=== PATIENT | female | born 1965 | race Asian ===

== ENCOUNTER 2018-04-14 11:24 | Emergency (ER) | payer OTHER ==
[2018-04-14 11:50] VITALS: BP 140/78
--- NOTE | 2018-04-14 12:31 | UC ---
Charles Medina Stephanie, scribed for ParulFreddy olivo MD on 04/14/18 at 1139 . Cardiac HPI - HPI Summary HPI Summary: In Room Note: The pt is a 53 y/o F presenting to with c/o CP that began on 04/13/18. The CP is located in the mid-chest. The pt states her entire body is tight. She denies N/V and diaphoresis. Denies recent illness. Denies past MN. Per daughter, this is a similar pain she has had in the past from anxiety. Note: Visit hx: Previous visit for CP in 2015, 2014 and 2010. Nurse Note: pts daughter states the family heard some upsetting news yesterday and shortly there after, pt started with chest pain in her mid chest. She states the pain feels like "tightness" and at times, "SOB". Pt was tearful at triage when asked about the upsetting news and declined disclosing the information. Pts does state she has had this same pain in the past and has been dx'sed with anxiety. - History of Current Complaint Stated Complaint: CHEST PAIN Time Seen by Provider: 04/14/18 11:34 Hx Obtained From: Patient Hx Last Menstrual Period: 10/01/16 Onset/Duration: Gradual Onset, Still Present Timing: Constant Current Severity: Mild Chest Pain Location: Mid Sternal Character: Tightness Aggravating Factor(s): Other - recent stress Alleviating Factor(s): Nothing Associated Signs & Symptoms: Positive: Chest Pain - Allergy/Home Medications Allergies/Adverse Reactions: Allergies Allergy/AdvReac Type Severity Reaction Status Date / Time No Known Allergies Allergy Verified 04/14/18 11:50 PMH/Surg Hx/FS Hx/Imm Hx Psychological History: Anxiety - Surgical History Surgical History: Yes Surgery Procedure, Year, and Place: 2010 LEFT EAR SURGERY, [facility] [place]. 2004 BILATERAL TUBAL LIGATION, [facility] [place] - Family History Known Family History: Negative: Cardiac Disease - Social History Occupation: Employed Full-time Lives: With Family Alcohol Use: Rare Substance Use Type: None Smoking Status (MU): Never Smoked Tobacco Have You Smoked in the Last Year: No Review of Systems Constitutional: Negative Skin: Negative Eyes: Negative ENT: Negative Respiratory: Negative Cardiovascular: Chest Pain Gastrointestinal: Negative Genitourinary: Negative Motor: Negative Neurovascular: Negative Musculoskeletal: Negative Neurological: Negative Psychological: Negative All Other Systems Reviewed And Are Negative: Yes Physical Exam - Summary Physical Exam Summary: Appearance: The patient is well-appearing, is in no pain distress, and is well- nourished. Eyes: Conjunctiva are clear. ENT: The hearing is grossly normal, the pharynx is normal, and the TMs are normal. There is no muffled or hoarse voice. Neck: The neck is supple and there is no lymphadenopathy. Respiratory: The chest is nontender. The lungs are clear, there are normal breath sounds, and there is no respiratory distress. Cardiovascular: Heart is regular rate and rhythm. There is no murmur. MILD DISCOMFORT WITH PALPATION TO UPPER CHEST WITH C/O MILD TIGHTNESS. Abdomen: The abdomen is soft and nontender. There is no organomegaly. Bowel sounds: present Musculoskeletal: Strength is intact. The patient moves all extremities. Neurological: The patient is alert. Psychological: The patient displays age appropriate behavior Skin: Negative for rashes. Triage Information Reviewed: Yes Vital Signs: Initial Vital Signs Temp 98.2 F 04/14/18 11:42 Pulse 69 04/14/18 11:42 Resp 15 04/14/18 11:42 BP 140/78 04/14/18 11:42 Pulse Ox 97 04/14/18 11:42 Vital Signs Reviewed: Yes Diagnostics - EKG Cardiac Rate: NL - 70 bpm @ 11:34 Cardiac Rhythm: Sinus: Normal - No acute ischemia compared to 08/30/16 and . No significant change. - Differential Diagnoses - Chest Pain Differential Diagnosis/HQI/PQRI: Acute MN, Pulmonary Embolism, Other: - anxiety - Clinical Impression Provider Diagnoses: chest pain probable anxiety; incomplete examination Discharge - Sign-Out/Discharge Documenting (check all that apply): Discharge/Admit/Transfer - Discharge Plan Condition: Stable Disposition: HOME Prescriptions: ALPRAZolam TAB* [Xanax TAB*] 0.25 mg PO TID PRN #5 tab MDD 0.75mg/day PRN Reason: Pain Patient Education Materials: Chest Pain (ED), Anxiety (ED) Referrals: Tai Johnson MD [Primary Care Provider] - Additional Instructions: PLEASE SEEK CARE AT THE EMERGENCY DEPARTMENT IF SYMPTOMS WORSEN OR IF NEW SYMPTOMS DEVELOP. FOLLOW UP WITH YOUR PRIMARY CARE PHYSICIAN. Your blood pressure reading today was 140/78, indicating HYPERTENSION. Follow- up with your primary care provider within 4 weeks for blood pressure readings and further evaluation. As we discussed, this is an incomplete exam but based on urine exam your chest pain is not a heart attack. Ears to be anxiety and I have given you a medication for that. Call your doctor and see her doctor tomorrow. Go directly to the emergency department for repeat chest pain, shortness of breath or other new chest pain symptoms. - Billing Disposition and Condition Condition: STABLE Disposition: Home The documentation as recorded by the Charles rosa Stephanie accurately reflects the service I personally performed and the decisions made by me, Freddy Gonzales MD.
== END 2018-04-14 12:42 | disposition home or self-care (01) ==
LOC: UCEAST 11:24
DX: R07.89 Other chest pain (principal); F41.9 Anxiety disorder, unspecified
CPT/HCPCS: 93005; 99212; G0463

== ENCOUNTER 2019-02-07 22:03 | Inpatient (IN) | payer OTHER ==
--- NOTE | 2019-02-07 22:17 | ED ---
Cardiac Resuscitation - HPI Summary HPI Summary: A 54 y/o female was brought in by [facility] ambulance, who have been performing CPR for 20 minutes. Per EMS, the patient was given four epi and one bicarb en route. Per family, the patient was at work when she had a sudden collapse at 21: 30. They report that the patient has a Hx of heart problems and sees Dr. Eaton, but the patient has had no prior NV or cardiac catheterization. The patients family reports that the patient was fine earlier today, but claim that she may have been stressed out. Patient is a level 5 caveat due to her unresponsiveness. - History of Current Complaint Chief Complaint: EDCardiacArrest Stated Complaint: CARDIAC ARREST PER EMS Hx Obtained From: Family/Salesperson [employer], EMS Hx From Patient Unobtainable Due To: Other - Pt was in cardiac arrest Onset/Duration: Minutes/Hours: - reportedly at 21:30 Arrest Witnessed: Yes - Allergies/Home Medications Allergies/Adverse Reactions: Allergies Allergy/AdvReac Type Severity Reaction Status Date / Time No Known Allergies Allergy Verified 07/14/18 18:05 Home Medications: Home Medications NK [No Home Medications Reported] 02/08/19 [History Confirmed 02/08/19] - Past Medical History Past Medical History: Other: - Per family, the patient has a Hx of cardiac problems but has no prior NV or cardiac catheterizaion - Family History Family History: Unobtainable Due to Extremis - Social History Social History: Unobtainable Due to Extremis - Review of Systems Review of Systems: Unobtainable Due to Extremis Physical Examination - Summary Physical Exam Summary: General: This is a well-developed, well- nourished woman lying on the stretcher. She is unresponsive and apneic, being ventilated by BVM with CPR machine giving compressions. HEENT:Conjunctiva are normal without pallor. Pharynx is clear without exudate or swelling. Dentition is unremarkable. There is no sign of head trauma. Neck: Supple, no adenopathy noted. Lungs: Lungs are clear to auscultation. The patient is apneic and being bagged. Coronary: Initially no pulses were felt, fairly soon after arrival and intubation the patient developed pulses; bedside screening US showed cardiac activity. Abdomen: The abdomen appears normal and is nondistended. There is no hepatosplenomegaly, nor any masses. Genitourinary: Deferred Back: deferred Extremities: There is no sign of any trauma to the extremities. Neurologic: The patient is unresponsive. The extremities are flaccid. Pupils are 3 mm and minimally reactive. Deep tendon reflexes are 2+ and symmetric. Psychiatric:unable to assess. Level 5 caveat due to unresponsiveness. - Physical Examination Triage Information Reviewed: Yes Diagnostics - Laboratory Result Diagrams: 02/08/19 05:45 02/08/19 05:45 Lab Statement: Any lab studies that have been ordered have been reviewed, and results considered in the medical decision making process. - Radiology CXR Radiology Interpretation Completed By: ED Physician Summary of Radiographic Findings: Pulmonary edema and good ET tube position. Pending official imaging report. - EKG 22:14 Cardiac Rate: Other Rate - Atrial fibrillation at 131 bpm EKG Rhythm: Atrial Fibrillation Summary of EKG Findings: Atrial fibrillation at 131 bpm with repol abnrm, prob ischemia, anterolateral lds. 22:39 Cardiac Rate: NL - 99 bpm EKG Rhythm: Sinus Rhythm Summary of EKG Findings: NSR at [address] elevation AvR, anteriolateral ST depression. Re-Evaluation - Re-Evaluation First Eval Re-Evaluation Time: 22:51 Cardiac Resus. Course/Dx - Course Course Of Treatment: A 54 y/o female was brought in by [facility] ambulance, who have been performing CPR for 20 minutes. Per EMS, the patient was given four epi and one bicarb en route. Per family, the patient was at work when she had a sudden collapse at 21:30. They report that the patient has a Hx of heart problems and sees Dr. Eaton, but the patient has had no prior NV or cardiac catheterization. The patients family reports that the patient was fine earlier today, but claim that she may have been stressed out. In the ED course the patient was given Aspirin NG tube, Lorazepam and Propofol IV. Bloodwork chemistries and toxicology obtained. ABG pH 7.04, HCO3 9.4, lactic acid 10.8. CXR showed Pulmonary edema and good ET tube position. The first EKG showed Atrial fibrillation at 131 bpm with repol abnrm, prob ischemia, anterolateral lds, and the second EKG showed NSR at [address] elevation AvR, anteriolateral ST depression. Both EKGs were discussed with Dr. Davis. Case discussed with Dr. Charlton, hospitalist, who accepted the patient for admission. - Diagnoses Provider Diagnoses: Cardiac arrest, Cardiac ischemia During the Visit The Following Alert/Code Occurred: ABC Alert - Provider Notifications Discussed Care Of Patient With: Praveen Davis Time Discussed With Above Provider: 22:28 Instructed by Provider To: Other - Discussed EKG findings. It was felt that as the patient does not have a ST elevation NV on her postarrest cardiogram she would not benefit from immediate catheterization. She will be admitted and treated with aggressive supportive care. - Critical Care Time Critical Care Time: 30-74 min Discharge - Sign-Out/Discharge Documenting (check all that apply): Patient Departure - admit Patient Received Moderate/Deep Sedation with Procedure: No - Discharge Plan Condition: Critical Disposition: ADMITTED TO [facility] - Billing Disposition and Condition Condition: CRITICAL Disposition: Admitted to [facility] - Attestation Statements Document Initiated by Scribe: Yes Documenting Scribe: Asad Casillas Provider For Whom Scribe is Documenting (Include Credential): Jose Maynard MD Scribe Attestation: IAsad, scribed for Jose Maynard MD on 02/08/19 at 0639. Scribe Documentation Reviewed: Yes Provider Attestation: The documentation as recorded by the Asad rosa accurately reflects the service I personally performed and the decisions made by Jose borrero MD Status of Scribe Document: Viewed Consult Consult: At 22:[address] Davis concerning the patient's second EKG. At 22:[address] Charlton, hospitalist, who accepted the patient for admission.
[2019-02-07 22:36] LABS: Hematocrit 26 % (33-41); Hemoglobin 8.2 g/dL (12.0-16.0); Mean Corpuscular HGB Conc 31 g/dL (31-36); Mean Corpuscular Hemoglobin 22 pg (27-31); Mean Corpuscular Volume 69 fL (80-97); Mean Platelet Volume 8.8 fL (7.4-10.4); Platelet Count 143 10^3/uL (150-450); Red Blood Count 3.78 10^6 /uL (3.70-4.87); Red Cell Distribution Width 17 % (10.5-15); White Blood Count 6.2 10^3/uL (3.5-10.8)
[2019-02-07 22:48] LABS: ALT 120 U/L (7-52); AST 166 U/L (13-39); Albumin 2.5 g/dL (3.2-5.2); Albumin/Globulin Ratio 1.4 (1-3); Alkaline Phosphatase 48 U/L (34-104); Anion Gap 16 mmol/L (2-11); BUN/Creatinine Ratio 25.3 (8-20); Blood Urea Nitrogen 19 mg/dL (6-24); CO2 Carbon Dioxide 18 mmol/L (22-32); Calcium 6.7 mg/dL (8.6-10.3); Chloride 107 mmol/L (101-111); EGFR African American 97.4 (>60); EGFR Non-African American 80.5 (>60); Globulin 1.8 g/dL (2-4); Glucose 348 mg/dL (70-100); Sodium 141 mmol/L (135-145); Total Protein 4.3 g/dL (6.4-8.9)
[2019-02-07 22:49] LABS: Troponin I 0.01 ng/mL (<0.04)
[2019-02-07] MEDS ORDERED: Aspirin TAB* 325 MG NG TUBE ONE (22:52)
[2019-02-07] MEDS ORDERED: [UNRECOGNIZED DRUG - OTHER] IV ONE (23:00)
[2019-02-07] MEDS ORDERED: NITROGLYCERIN IV ONE (23:00)
[2019-02-07 23:02] LABS: Lymphocytes % 80 %; Microcytosis 1+; Neutrophil % 19 %
[2019-02-07 23:04] LABS: ABS Basophils 0 10^3/ul (0-0.2); ABS Eosinophils 0.2 10^3/ul (0-0.6); ABS Lymphocytes 4.7 10^3/ul (1.0-4.8); ABS Monocytes 0.2 10^3/ul (0-0.8); ABS Neutrophils 1.1 10^3/ul (1.5-7.7); ABS Nucleated RBC 0 10^3/ul; Lymphocyte % 75.8 %; Nucleated Red Blood Cells % 0.5
[2019-02-07] MEDS ORDERED: Propofol* 0 MG/0 ML BTL ONE (23:04)
[2019-02-07] MEDS ORDERED: Propofol* 100 ML ONE (23:13)
[2019-02-07] MEDS: Propofol* 100 ML IV SCH (23:16)
[2019-02-07] MEDS ORDERED: LORazepam INJ* 2 MG/ML 1 ML VIAL ONE (23:20)
[2019-02-07] MEDS ORDERED: LORazepam INJ* 2 MG/ML 1 ML VIAL IV PUSH ONE (23:22)
[2019-02-07 23:58] LABS: Barbiturates Urine Screen None Detected (None Detect); Benzodiazepine Urine Screen None Detected (None Detect); Urine Cannabinoids Screen None Detected (None Detect)
[2019-02-08] MEDS: KCL 20 MEQ/100 ML IVPREMIX* 20 MEQ/100 ML BAG IV SCH ×3 (00:11→09:02)
[2019-02-08 00:15] LABS: Magnesium 2.2 mg/dL (1.9-2.7)
[2019-02-08] MEDS ORDERED: Furosemide IV* 10 MG/ML VIAL (40 MG) IV ONE (00:45)
[2019-02-08 00:50] LABS: Myoglobin 288.4 ng/mL (14.3-65.8)
[2019-02-08] MEDS ORDERED: Dextrose 50% Syringe 50 ML* 25 GM/50 ML SYRINGE IV PUSH PRN (01:14)
[2019-02-08] MEDS ORDERED: Albuterol 2.5 MG/3 ML NEB.SOL* (0.083%) INH PRN (01:17)
[2019-02-08 01:31] LABS: Acetaminophen < 15 mcg/mL; Salicylate < 2.50 mg/dL (<30)
[2019-02-08] MEDS ORDERED: Iodixanol* (CONTRAST) 320 MG/ML 100 ML SDV IV ONE (01:32)
[2019-02-08 01:59] LABS: Troponin I 0.11 ng/mL (<0.04)
[2019-02-08] MEDS ORDERED: Iodixanol 320 (CONTRAST) 100 ML SDV IV ONE (02:15)
[2019-02-08] MEDS ORDERED: LORazepam INJ* 2 MG/ML 1 ML VIAL IV PUSH ONE (02:43)
--- NOTE | 2019-02-08 02:53 | CARD ---
CC: Viviane Eaton MD VERY LIMITED TRANSTHORACIC ECHOCARDIOGRAM: DATE OF PROCEDURE: 02/08/19 REPORT: The patient is a 54-year-old female patient who was brought into the emergency room after sh e sustained cardiac arrest in the field at work. She is intubated and sedated, a very limited echoca rdiogram was done at bedside in the emergency room. The very limited echocardiogram showed overall l eft ventricular systolic function ranging from in some of views 40% to 50%, there is anterior septal, there is inferoposterior wall hypokinesis appreciated. There is no significant pericardial effusion . There is no severe aortic insufficiency or mitral insufficiency appreciated. A followup full perdue sthoracic echocardiogram will be obtained. Again, this was very limited given the patient is intubat ed, sedated, and on the vent machine. [id number]/[facility] #: [id number]
[2019-02-08] MEDS ORDERED: levETIRAcetam 1000MG IVPREMIX* 1,000 MG/100 ML BAG IVPB ONE (03:30)
[2019-02-08] MEDS ORDERED: Atorvastatin* 80 MG TAB PO ONE (03:32)
--- NOTE | 2019-02-08 03:36 | PN ---
Hospitalist Progress Note Date of Service: 02/08/19 I went to see Alma when she arrived in the ICU. She was breathing irregularly above the vent and demonstrating periodic, short episodes of corticate posturing that lasted seconds and resolved on their own. Her pupils are 3mm b/ l and reactive to light. No clonus. We attempted ativan 2mg IV. CT brain read as unremarkable by radiology. CT c/a/p negative for dissection or PE, positive for hemoperitoneum thought to be related to ovarian cyst per radiology report. I spoke with her and sister in law again and informed them of my concerns--that we may be seeing signs of hypoxic brain injury, and that she remains in very critical condition. They understand and have called her children to come ellyn. I consulted with Dr. Arriola who recommended loading her with keppra, increasing propofol as able, hyperventilating her, and getting an EEG if symptoms persist after that. Will continue to monitor closely. She remains on the hypothermia protocol. Now that intracranial bleed has been ruled out, will start heparin drip for nstemi. Hemoperitoneum is a concern in setting of acute on chronic anemia, but no active extravasation was observed, and at this time the benefit of heparin in a cardiac arrest from presumed coronary ischemia outweighs the risk. Will monitor hgb closely. Will also continue with aspirin and statin--will hold off on beta dameon to allow bp room. Check ABG now to confirm hyperventilation. I have also asked Dr. Mahan to place a central line for better access.
[2019-02-08] MEDS ORDERED: Heparin VIAL(*) 5000 UNITS/ML VIAL (FIVE THOUSAND) IV PRN (03:41)
--- NOTE | 2019-02-08 03:42 | HP ---
CC: Dr. Eaton; Dr. Johnson * HISTORY AND PHYSICAL: DATE OF ADMISSION: 02/08/19 TIME OF ADMISSION: 12:30 a.m. CHIEF COMPLAINT: Cardiac arrest. HISTORY OF PRESENT ILLNESS: This is a 54-year-old female with history of mild to moderate aortic insufficiency and diet-controlled diabetes, who presented to the emergency department after a witnessed arrest at her place of work, [employer]. Her brother, , and sister in law are here and report that she has been well recently. No other medical problems and no recent illnesses. Her brother works there with her and said that prior to the arrest she was feeling fine and had no complaints. She had no recent complaints and had been healthy. Her brother does relate some recent stressors in their life with the recent passing of their father. She uses no drugs or alcohol. Her pre-hospital course is noted per verbal report; EMS did not leave rhythm strips--I have requested them from the [facility]. When EMS arrived to the restaurant they reported PEA. Then, she went into V-fib reportedly and received 3 rounds of defibrillation and epinephrine. 20 minutes of CPR was reported before arrival to the hospital. When she arrived into our emergency department , CPR was continued, she was intubated and was found to be in PEA. Received bicarb and had ROSC. An immediate EKG showed concern for STEMI, so a STEMI alert was called. Dr. Davis reviewed the EKGs and deemed it not to be a STEMI. Then, I was contacted for admission. Her ED course has other-palacios been complicated by small low amplitude episodes of seizure-like activity with eye twitching and head twitching. She received 2 mg of IV Ativan and these movements ceased. She did require propofol in the ED for agitation. ROS: unable to be obtained due to intubation PMH: vitiligo, diet controlled diabetes (though she hasn't seen a doctor in a few years), mild-mod aortic insufficiency Home Meds: tylenol PRN, no supplements Social: Her is her healthcare proxy. She does not smoke, drink, or use drugs. She works at a restaurant. PHYSICAL EXAMINATION GENERAL: She is sedated on propofol. VITAL SIGNS: Temperature was initially 97.9, it is currently 94.8 on hypothermic protocol. Heart rate is 115, respiratory rate is 14 on the vent, pulse ox is 89% on 100% FiO2 and blood pressure is 128/73. Her vent is currently set at 100% FiO2 with a PEEP of 12, CMV and tidal volume of 450. HEENT: Her pupils are 3 mm bilaterally and slugglishly reactive to light. She is intubated and the tube is at 19 cm. NECK: No JVP is appreciated, though she is lying flat. CHEST: She is tachycardic, I do not appreciate a murmur. Her PMI is nondisplaced. Her lungs have wet crackles bilaterally. ABDOMEN: Soft, thin. Her liver is palpable at the costal margin. A Guzmán catheter is in place. EXTREMITIES: She has no edema, rashes, ulcers, or ecchymosis. Vitiligo is noted. NEUROLOGIC: She does not withdraw to pain and she has no clonus. + gag reflex. DIAGNOSTIC STUDIES/LAB DATA: White blood cell 6.2, hemoglobin 8.2, platelets 143, her baseline hemoglobin is 10 as of 2 years ago. Sodium 141, potassium 3.0 , chloride 107, bicarb 18, anion gap 16, creatinine 0.75, glucose 348, lactic acid 10.8, calcium 6.7, albumin 2.5, myoglobin 288, CK-MB 2.0, troponin 0.01. Urine drug screen was all negative. Imaging: A chest x-ray to my read shows bilateral patchy edema, no effusions. An EKG at 2214 showed an irregular rhythm with normal axis, no clear P waves, no chamber hypertrophy, deep T wave inversions V3 through V6 with ST depression V2 through V6 and T wave inversions in II, III and aVF. At that point, a posterior EKG was obtained, which showed ST depressions in II, III and aVF and ST elevations in aVR. ASSESSMENT AND PLAN: This is a 54-year-old previously healthy female who presented to the emergency department with a witnessed cardiac arrest. 1. Pulseless electrical activity/ventricular fibrillation arrest. Both rhythms were reported by EMS. The differential of her arrest remains broad, but I am most suspicious for cardiac etiology--specifically myocardial ischemia. I have discussed her case with Dr. Eaton and Dr. Magana. Dr. Magana recommends hypothermic protocol which has been initiated in the emergency department. Dr. Eaton is here to do an echocardiogram. This will help evaluate for wall motion, rule out pericardial effusion, acute valve insufficiency, dissection. We will also check a CT angiogram to rule out pulmonary embolism or dissection as well as a CT brain to rule out intracranial process. Her potassium is a little low, but not likely to have caused an arrest. A stress cardiomyopathy is also in the differential; however, I think an ischemic process is more likely given her regional EKG variations and ischemic changes. I was also concerned about acute aortic insufficiency or mitral insufficiency which can be evaluated on the echocardiogram as well. If the CT head and CT angio are unremarkable, I will plan to start a heparin drip and give aspirin and add beta-dameon, she is currently hemodynamically stable and is being cooled. Her anemia is concerning, as addressed below, but at this point treating the nstemi medically is crucial. Keep active type and screen. 2. Concern for seizure-like activity. I am awaiting a stat CT head. This activity is currently suppressed on propofol drip. Anoxic brain injury is the greatest concern if the CT head is negative for bleed or ischemia. Will continue to monitor closely. Will consider EEG if these findings persist. 3. Acute hypoxic respiratory failure. She has marked pulmonary edema on her x- ray, and given my concern for coronary ischemia, I am giving her a dose of Lasix now to attempt to help oxygenate her. We can go up on the PEEP a little bit more; however, she is on high vent setting already. Pulmonary embolism remains on the differential as well. Her imaging could also be suggestive of a multifocal pneumonia, but she had been well prior to her arrest, so hypoxia having caused PEA is less likely--I think it is more likely that hypoxia is a result of the cardiac insult. 4. Metabolic Acidosis. This is unsurprising in the setting of a cardiac arrest. No role for bicarb replacement now that spontaneous circulation has been restored. 4. GI. An OG tube is in place. She will be n.p.o. with meds per NG tube. Pressure ulcer prophylaxis. 5. Endocrine. She is hyperglycemic on her BMP. I will put her on Accu-Cheks and a sliding scale. 6. Renal. A Guzmán catheter is in place. She will have strict I's and O's. 7. Heme. She has acute on chronic microcytic anemia, but no evidence of an active bleed. We will trend her hemoglobin and put her on DVT prophylaxis. 8. Disposition. Admit to the ICU. 9. Prognosis is guarded. I have conveyed these findings and her prognosis with her family members. Cardiology and ICU following. [id number]/[facility] #: [id number] MTDD
[2019-02-08] MEDS ORDERED: Heparin DRIP 25,000 UNITS(*) 25,000 UNITS/500 ML BAG IV SCH (03:45)
[2019-02-08] MEDS ORDERED: Acetaminophen SUPP* 650 MG SUPP PR PRN (04:08)
[2019-02-08] MEDS ORDERED: Acetaminophen SUPP* 650 MG SUPP PR ONE (04:08)
[2019-02-08] MEDS ORDERED: Acetaminophen SUPP* 650 MG SUPP ONE (04:18)
[2019-02-08] MEDS: Norepinephrine 16MCG/ML IVPRE* 4,000 MCG/250 ML BAG IV SCH ×5 (04:40→22:03)
[2019-02-08] MEDS ORDERED: Norepinephrine 16MCG/ML IVPRE* 4,000 MCG/250 ML BAG IV ONE (04:48)
--- NOTE | 2019-02-08 05:52 | CONS ---
CC: Hospitalist Service; Dr. Eaton CARDIOLOGY CONSULT: DATE OF CONSULT: 02/08/19 HISTORY OF PRESENT ILLNESS: I was asked by Dr. Charlton from the hospitalist service to evaluate this 54-year-old female patient, who was brought into the emergency room by EMS after she sustained cardiac arrest at work. As I gathered the history from Dr. 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 EMS was called in and a CPR was initiated and subsequently the patient was brought into the emergency room. There was reported ventricular fibrillation and pulseless electrical activity, although I do not have the strips available to me. The patient is currently intubated, sedated, and she is in sinus tachycardia with a heart rate of 110 and the blood pressure systolic of 110 mmHg. There was no reported chest pain or tachycardia or any other symptoms before her sudden collapse. Past medical history and other medical history is not obtainable at the present time as the patient is currently sedated, intubated, and connected to the vent machine. In the emergency room, she had multiple EKGs and the EKGs on 02/03/19 at 2214 showed the patient to have atrial fibrillation and heart rate of 131 beats per minute. She had diffuse ST depressions in V1, V2, V3, V4, V5, V6 with deep T-wave inversions on those leads as well as T-wave inversion in leads II, III and aVF. She had an EKG after that at 2239 that was a posterior EKG that showed the longest elevation in V1, she appears to be in sinus rhythm on this EKG, and then deep ST depressions in leads II, aVF as well as V5 and V6. I repeated another EKG which was on 02/08/19 at 0058, that EKG showed the patient to be in sinus tachycardia, heart rate 113 beats per minute. There was significant improvement in the ST depressions in leads II, III and aVF, but she still had mild ST depression in V2, V3, V4, significantly improved compared to her initial EKGs. Her chest x-ray showed the patient to be in congestive heart failure. I did very limited bedside echocardiogram in the emergency room that was very limited and difficult given the patient is on her back and connected to the vent machine , but from what I was able to obtain the overall left ventricular systolic function in some of the views ranging from 40% to 50%, there is anterior septal and inferoposterior wall motion abnormality, there is no significant pericardial effusion, and from the very limited echo with applying the color which was also limited in the aortic valve, I did not appreciate severe aortic insufficiency. Review of all other system is limited and as outlined above in the limited history that was obtained. In the emergency room, the patient received Lasix 40 mg 1 dose. Her initial lab evaluation in the emergency room showed white cell of 6.2, hemoglobin 8.2, hematocrit 26, platelets 143. Potassium was 3, sodium 141, BUN 19, creatinine 0.75, lactic acid 10.8, magnesium 2.2. LFTs might be elevated at 166 and 120 respectively. Her CK-MB 2 , myoglobin 288, troponin 0.01. PHYSICAL EXAMINATION: On exam, she is sedated and intubated. Vitals: Blood pressure systolic 110, she is in sinus tachycardia, 110 beats per minute. Neck : JVP elevated while she is flat. Chest: Diminished at the bases with bilateral rhonchi. Heart: Tachycardic S1 and S2. There is a gallop, but I did not appreciate murmurs. Abdomen: Positive bowel sounds. Extremities: No significant edema appreciated. MANAGER BILLING: Difficult to evaluate the patient given she is intubated and sedated. IMPRESSION: This is a critically ill patient, 54-year-old female, who: 1. Sustained cardiac arrest and resuscitated, currently sedated, intubated, and connected to the vent machine; possible in the differential acute cardiac event, ischemic event based on her significantly abnormal initial EKGs and also the very limited echo at bedside. 2. Grossly abnormal EKGs as described. 3. Anemia. 4. Hypokalemia. PLAN: I have discussed this patient with Dr. Charlton from the hospitalist service as well as I had discussed her with Dr. Davis, who is on-call for Interventional Cardiology. He was able to review the EKGs remotely. I did update him on the clinical status of the patient as well as on the findings of the very limited echo that I did at bedside today. I discussed with him the cardiac catheterization and appropriate timing , and based on our further discussion, Dr. Davis was concerned about her anemia and hypokalemia and absence of definite ST elevations by her EKG, although an isolated posterior WV cannot be ruled out. At the present time, recommendations for beta-dameon therapy, aspirin, Lasix, p.r.n. statins, possible heparin as there if there is no acute bleed. CT chest to rule out pulmonary embolism and aortic dissection and CT of brain and also recommendation for following the guidelines for cooling procedures after cardiac arrest. Her prognosis is very guarded at the present time. We will follow serial troponins, EKGs, and pending her clinical outcome further recommendations. She remains critical at the present time. A followup transthoracic echocardiogram will be obtained as well. TIME SPENT: Critical care time taking care of this patient, evaluating her without the time of obtaining the transthoracic echocardiogram is more than 2 hours. [id number]/CPS #: [id number] MARCIE
[2019-02-08] MEDS ORDERED: levETIRAcetam 500 MG IVPREMIX* 500 MG/100 ML BAG IV ONE (06:00)
[2019-02-08] MEDS: Pantoprazole IV* 40 MG IV SCH (06:09)
--- NOTE | 2019-02-08 06:20 | PN ---
Hospitalist Progress Note Date of Service: 02/08/19 ED MD attempted a left subclavian central line. Procedure was aborted when he encountered air and he converted to a right IJ. A stat CXR post-procedure confirmed a large left-sided pneumothorax with mediastinal shift. She became hypotensive so propofol was placed on hold, and levophed was started peripherally, along with normal saline wide open. He then placed a chest tube on the left side, and a repeat CXR showed re-expansion. Her BP improved and levophed was discontinued and propofol was resumed. Her posturing vs. seizure activity has not improved after keppra 1000mg, so I ordered a stat EEG, spoke with the die maintenance technician and Dr. Arriola, who recommended keppra 500mg now. I updated her on all of these events. Prognosis remains guarded.
[2019-02-08 06:24] LABS: ABS Basophils 0 10^3/ul (0-0.2); ABS Eosinophils 0 10^3/ul (0-0.6); ABS Lymphocytes 0.7 10^3/ul (1.0-4.8); ABS Monocytes 0.3 10^3/ul (0-0.8); ABS Neutrophils 14.3 10^3/ul (1.5-7.7); ABS Nucleated RBC 0 10^3/ul; Activated Partial Thrombo Time 29.8 seconds (26.0-36.3); Eosinophil % 0 %; Hematocrit 36 % (33-41); Hemoglobin 11.5 g/dL (12.0-16.0); INR 1.02 (0.77-1.02); Lymphocyte % 4.4 %; Mean Corpuscular HGB Conc 32 g/dL (31-36); Mean Corpuscular Hemoglobin 22 pg (27-31); Mean Corpuscular Volume 67 fL (80-97); Mean Platelet Volume 8.3 fL (7.4-10.4); Nucleated Red Blood Cells % 0.2; Platelet Count 237 10^3/uL (150-450); Red Blood Count 5.35 10^6 /uL (3.70-4.87); Red Cell Distribution Width 17 % (10.5-15); White Blood Count 15.3 10^3/uL (3.5-10.8)
[2019-02-08 06:31] LABS: ALT 213 U/L (7-52); AST 506 U/L (13-39); Albumin 3.7 g/dL (3.2-5.2); Albumin/Globulin Ratio 1.3 (1-3); Alkaline Phosphatase 88 U/L (34-104); Anion Gap 15 mmol/L (2-11); BUN/Creatinine Ratio 24.5 (8-20); Blood Urea Nitrogen 24 mg/dL (6-24); CO2 Carbon Dioxide 19 mmol/L (22-32); Calcium 6.5 mg/dL (8.6-10.3); Chloride 108 mmol/L (101-111); EGFR African American 71.6 (>60); EGFR Non-African American 59.1 (>60); Globulin 2.8 g/dL (2-4); Glucose 252 mg/dL (70-100); Sodium 142 mmol/L (135-145); Total Protein 6.5 g/dL (6.4-8.9)
[2019-02-08 06:43] LABS: Troponin I 0.43 ng/mL (<0.04)
[2019-02-08 06:47] LABS: TSH (Thyroid Stimulating Horm) 1.12 mcIU/mL (0.34-5.60)
[2019-02-08] MEDS ORDERED: NS 0.9% 1000 ML** 1,000 ML IV SCH (08:30)
[2019-02-08] MEDS: MIDAZOLAM IV SCH ×2 (08:45)
[2019-02-08] MEDS: [UNRECOGNIZED DRUG - OTHER] IV SCH ×2 (08:45)
[2019-02-08] MEDS: Propofol* 100 ML IV SCH ×3 (08:50→20:56)
[2019-02-08] MEDS ORDERED: NS 0.9% 500 ML* 500 ML IV ONE ×2 (09:00→19:56)
[2019-02-08] MEDS ORDERED: Amiodarone 360 MG IVPREMIX* 360 MG/200 ML BAG IV ONE ×2 (09:55→10:54)
--- NOTE | 2019-02-08 10:01 | CONSULT ---
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 CPR started at work. EMS arrived, found PEA rhythm, gave 20min of CPR. En route to ED, shockable rhythm noted and defibrillated. In ER, PEA arrest , CPR continued with ROSC in ~5min ?, total Downtime estimated to be 30-40min suspected. Already intubated in field I suspect. In ER, noted to have pulmonary edema on CXR. EKG with inferior and anterolateral ST depressions. Cardiology consulted but deemed to likely have some degree of global ischemia from cardiac arrest. Overnight TTE performed and demonstrated anterior and inferior wall hypokinesis with mild LV systolic dysfunction. She was not taken to engineering lab technician. She was started on Therapeutic hypothermia tx, IV heparin for possible ACS. OVernight noted to have some posturing, so neurology was consulted. Curretnly in bed, sedated, on cooling pads. She was started on cooling at 230am , but has not reached target temp yet, till a cold saline bolus was ordered by me. CUrrent temp 34.5C. at bedside. At 952am patient developed VF again, CPR started, pads attached and defibrillated in under 1 min. Bolus of amio 150mg being given after she converted to NSR again. 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; family-, daughter; 2 weeks prior her father 81yr old Allergies: NKDA Home Medications: NK [No Home Medications Reported] 02/08/19 [History Confirmed 02/08/19] Tele: NSR; VF episode x1 Vitals: Vital Signs Temp 94.5 F 02/08/19 09:30 Pulse 84 02/08/19 09:30 Resp 16 02/08/19 08:45 BP 103/72 02/08/19 09:30 Pulse Ox 100 02/08/19 09:30 Intake & Output 02/07/19 02/08/19 02/08/19 18:59 06:59 18:59 Intake Total 710 Output Total 1999 375 Balance -1290 -375 Weight 52.6 kg Intake: IV Fluids 442 Levophed 53 Normal Saline 240 Propofol 49 IVPB 268 KCl 169 Keppra 99 Output: Raemy 1999 O2/Vent: 80% fio2, RR 16, Breathing 22-24 over rate Infusions: levophed 20, prop 50, versed 4, heparin IV, NS 125cc/hr Current Medications: Acetaminophen (Tylenol Supp*) 650 mg VA Q6H PRN PRN Reason: FEVER Albuterol (Ventolin 2.5 Mg/3 Ml Neb.Natalie*) 2.5 mg INH [id number] AWAKE PRN PRN Reason: sob/wheezing Dextrose (D50w Syringe 50 Ml*) 12.5 gm IV PUSH .FOR FS < 60 - SS PRN PRN Reason: FS < 60 Heparin Sodium (Porcine) (Heparin Vial(*)) 0 units IV .BOLUS PRN PRN Reason: HEPARIN DRIP PROTOCOL Last Admin: 02/08/19 07:29 Dose: 3,000 units Propofol (Diprivan*) 100 mls @ 1.497 mls/hr IV .(Initial Rate) CÉSAR; Protocol Last Admin: 02/08/19 08:50 Dose: 15 mls/hr Heparin Sodium/Dextrose (Heparin Drip 25,000 Units(*)) 25,000 units in 500 mls @ 0 mls/hr IV PER RATE [facility]ÉSAR; Protocol Last Admin: 02/08/19 07:29 Dose: 12 mls/hr Norepinephrine Bitartrate (Levophed 16 Mcg/Ml Premix Bag*) 4,000 mcg in 250 mls @ 30 mls/hr IV .INITIAL RATE CÉSAR Last Admin: 02/08/19 10:22 Dose: 75 mls/hr Midazolam HCl 100 mg/ Sodium (Chloride) 100 mls @ 4 mls/hr IV Q24H [facility]ÉSAR; Protocol Last Admin: 02/08/19 08:45 Dose: 4 mls/hr Sodium Chloride (Ns 0.9% 1000 Ml) 1,000 mls @ 125 mls/hr IV .PER RATE [facility] Last Admin: 02/08/19 08:30 Dose: 125 mls/hr Potassium Chloride (Potassium Chloride 20 Meq/100 Ml Ivpremix*) 20 meq in 100 mls @ 50 mls/hr IV Q2H [facility] Stop: 02/08/19 14:59 Last Admin: 02/08/19 09:02 Dose: 50 mls/hr Insulin Human Lispro (Humalog*) 0 units SUBCUT ACHS [facility]; Protocol Pantoprazole Sodium (Protonix Iv*) 40 mg IV Q24H [facility] Last Admin: 02/08/19 06:09 Dose: 40 mg Physical Exam: Constitutional: intubated, on sedation, no distress, no diaphoresis Head: normocephalic, atraumatic Eyes: no pallor, no icterus ENT: moist mucous membranes Neck: soft, supple, no jvd CVS: normal rate, regular, no murmur Resp: bilateral air entry, mild right sided rhales+, no wheeze, no rhonchi, no acc muscle use Abdomen/GI: soft, nondistended, BS+ Ext/Msk: cool, pulses+, no edema Skin: intact, cool; vitiligo+ Neuro: sedated, intubated, pinpoint pupils Labs: Laboratory Results - last 24 hr 02/07/19 02/07/19 02/07/19 22:20 22:25 22:25 WBC 6.2 RBC 3.78 Hgb 8.2 L Hct 26 L MCV 69 L MCH 22 L MCHC 31 RDW 17 H Plt Count 143 L MPV 8.8 Neut % (Auto) 17.2 Lymph % (Auto) 75.8 Randall % (Auto) 3.5 Eos % (Auto) 3.0 Baso % (Auto) 0.5 Absolute Neuts (auto) 1.1 L Absolute Lymphs (auto) 4.7 Absolute Monos (auto) 0.2 Absolute Eos (auto) 0.2 Absolute Basos (auto) 0 Absolute Nucleated RBC 0 Neutrophils % 19 Lymphocytes % 80 Eosinophils % 1 Nucleated RBC % 0.5 Normal RBC Morphology Not Reportable Hypochromasia 1+ Microcytosis 1+ INR (Anticoag Therapy) APTT Patient Temperature ABG pH ABG pH (Temp Correct) ABG pCO2 ABG pCO2 (Temp Corrct ABG pO2 ABG pO2 (Temp Correct ABG HCO3 ABG O2 Saturation ABG Base Excess Respiration Rate O2 Delivery Device Ventilator Type Vent Mode FiO2 Inspiratory Time PEEP Pressure Support Pressure Control EPAP IPAP BiPAP Sodium 141 Potassium 3.0 L Chloride 107 Carbon Dioxide 18 L Anion Gap 16 H BUN 19 Creatinine 0.75 Est GFR ( Amer) 97.4 Est GFR (Non-Af Amer) 80.5 BUN/Creatinine Ratio 25.3 H Glucose 348 H Lactic Acid 10.8 H* Calcium 6.7 L Magnesium 2.2 Total Bilirubin 0.20 AST 166 H ALT 120 H Alkaline Phosphatase 48 CK-MB (CK-2) 2.0 Myoglobin 288.4 H Troponin I 0.01 B-Natriuretic Peptide Total Protein 4.3 L Albumin 2.5 L Globulin 1.8 L Albumin/Globulin Ratio 1.4 TSH Salicylates < 2.50 Urine Opiates Screen Acetaminophen < 15 Ur Barbiturates Screen Ur Phencyclidine Scrn Ur Amphetamines Screen U Benzodiazepines Scrn Urine Cocaine Screen U Cannabinoids Screen Blood Type Antibody Screen 02/07/19 02/07/19 02/07/19 22:52 23:23 23:30 WBC RBC Hgb Hct MCV MCH MCHC RDW Plt Count MPV Neut % (Auto) Lymph % (Auto) Randall % (Auto) Eos % (Auto) Baso % (Auto) Absolute Neuts (auto) Absolute Lymphs (auto) Absolute Monos (auto) Absolute Eos (auto) Absolute Basos (auto) Absolute Nucleated RBC Neutrophils % Lymphocytes % Eosinophils % Nucleated RBC % Normal RBC Morphology Hypochromasia Microcytosis INR (Anticoag Therapy) APTT Patient Temperature Not Reportable ABG pH 7.04 L* ABG pH (Temp Correct) Not Reportable ABG pCO2 38 ABG pCO2 (Temp Corrct Not Reportable ABG pO2 88 ABG pO2 (Temp Correct Not Reportable ABG HCO3 9.4 L* ABG O2 Saturation 92.3 L ABG Base Excess -19.7 L Respiration Rate 16 O2 Delivery Device ventilator Ventilator Type 450 Vent Mode Apvcmv FiO2 85 Inspiratory Time 1.0 PEEP 5 Pressure Support Not Reportable Pressure Control Not Reportable EPAP Not Reportable IPAP Not Reportable BiPAP Not Reportable Sodium Potassium Chloride Carbon Dioxide Anion Gap BUN Creatinine Est GFR ( Amer) Est GFR (Non-Af Amer) BUN/Creatinine Ratio Glucose Lactic Acid Calcium Magnesium Total Bilirubin AST ALT Alkaline Phosphatase CK-MB (CK-2) Myoglobin Troponin I B-Natriuretic Peptide Total Protein Albumin Globulin Albumin/Globulin Ratio TSH Salicylates Urine Opiates Screen None detected Acetaminophen Ur Barbiturates Screen None detected Ur Phencyclidine Scrn None detected Ur Amphetamines Screen None detected U Benzodiazepines Scrn None detected Urine Cocaine Screen None detected U Cannabinoids Screen None detected Blood Type B Positive Antibody Screen Negative 02/08/19 02/08/19 02/08/19 01:28 01:28 01:28 WBC RBC Hgb Hct MCV MCH MCHC RDW Plt Count MPV Neut % (Auto) Lymph % (Auto) Randall % (Auto) Eos % (Auto) Baso % (Auto) Absolute Neuts (auto) Absolute Lymphs (auto) Absolute Monos (auto) Absolute Eos (auto) Absolute Basos (auto) Absolute Nucleated RBC Neutrophils % Lymphocytes % Eosinophils % Nucleated RBC % Normal RBC Morphology Hypochromasia Microcytosis INR (Anticoag Therapy) APTT Patient Temperature ABG pH ABG pH (Temp Correct) ABG pCO2 ABG pCO2 (Temp Corrct ABG pO2 ABG pO2 (Temp Correct ABG HCO3 ABG O2 Saturation ABG Base Excess Respiration Rate O2 Delivery Device Ventilator Type Vent Mode FiO2 Inspiratory Time PEEP Pressure Support Pressure Control EPAP IPAP BiPAP Sodium Potassium Chloride Carbon Dioxide Anion Gap BUN Creatinine Est GFR ( Amer) Est GFR (Non-Af Amer) BUN/Creatinine Ratio Glucose Lactic Acid 6.0 H* Calcium Magnesium Total Bilirubin AST ALT Alkaline Phosphatase CK-MB (CK-2) Myoglobin Troponin I 0.11 H* B-Natriuretic Peptide 23 Total Protein Albumin Globulin Albumin/Globulin Ratio TSH Salicylates Urine Opiates Screen Acetaminophen Ur Barbiturates Screen Ur Phencyclidine Scrn Ur Amphetamines Screen U Benzodiazepines Scrn Urine Cocaine Screen U Cannabinoids Screen Blood Type Antibody Screen 02/08/19 02/08/19 02/08/19 05:40 05:45 05:45 WBC RBC Hgb Hct MCV MCH MCHC RDW Plt Count MPV Neut % (Auto) Lymph % (Auto) Randall % (Auto) Eos % (Auto) Baso % (Auto) Absolute Neuts (auto) Absolute Lymphs (auto) Absolute Monos (auto) Absolute Eos (auto) Absolute Basos (auto) Absolute Nucleated RBC Neutrophils % Lymphocytes % Eosinophils % Nucleated RBC % Normal RBC Morphology Hypochromasia Microcytosis INR (Anticoag Therapy) 1.02 APTT 29.8 Patient Temperature Not Reportable ABG pH 7.23 L ABG pH (Temp Correct) Not Reportable ABG pCO2 40 ABG pCO2 (Temp Corrct Not Reportable ABG pO2 70 L ABG pO2 (Temp Correct Not Reportable ABG HCO3 16.8 L ABG O2 Saturation 91.9 L ABG Base Excess -10.2 L Respiration Rate 16 O2 Delivery Device Ventilator Type 450 Vent Mode cmv FiO2 100 Inspiratory Time Not Reportable PEEP 12 Pressure Support Not Reportable Pressure Control Not Reportable EPAP Not Reportable IPAP Not Reportable BiPAP Not Reportable Sodium 142 Potassium 3.0 L Chloride 108 Carbon Dioxide 19 L Anion Gap 15 H BUN 24 Creatinine 0.98 H Est GFR ( Amer) 71.6 Est GFR (Non-Af Amer) 59.1 BUN/Creatinine Ratio 24.5 H Glucose 252 H Lactic Acid Calcium 6.5 L Magnesium Total Bilirubin 0.40 AST 506 H ALT 213 H Alkaline Phosphatase 88 CK-MB (CK-2) Myoglobin Troponin I 0.43 H* B-Natriuretic Peptide Total Protein 6.5 Albumin 3.7 Globulin 2.8 Albumin/Globulin Ratio 1.3 TSH 1.12 Salicylates Urine Opiates Screen Acetaminophen Ur Barbiturates Screen Ur Phencyclidine Scrn Ur Amphetamines Screen U Benzodiazepines Scrn Urine Cocaine Screen U Cannabinoids Screen Blood Type Antibody Screen 02/08/19 02/08/19 05:45 05:45 WBC 15.3 H RBC 5.35 H Hgb 11.5 L Hct 36 MCV 67 L MCH 22 L MCHC 32 RDW 17 H Plt Count 237 MPV 8.3 Neut % (Auto) 93.8 Lymph % (Auto) 4.4 Randall % (Auto) 1.8 Eos % (Auto) 0 Baso % (Auto) 0 Absolute Neuts (auto) 14.3 H Absolute Lymphs (auto) 0.7 L Absolute Monos (auto) 0.3 Absolute Eos (auto) 0 Absolute Basos (auto) 0 Absolute Nucleated RBC 0 Neutrophils % Lymphocytes % Eosinophils % Nucleated RBC % 0.2 Normal RBC Morphology Hypochromasia Microcytosis INR (Anticoag Therapy) APTT Patient Temperature ABG pH ABG pH (Temp Correct) ABG pCO2 ABG pCO2 (Temp Corrct ABG pO2 ABG pO2 (Temp Correct ABG HCO3 ABG O2 Saturation ABG Base Excess Respiration Rate O2 Delivery Device Ventilator Type Vent Mode FiO2 Inspiratory Time PEEP Pressure Support Pressure Control EPAP IPAP BiPAP Sodium Potassium Chloride Carbon Dioxide Anion Gap BUN Creatinine Est GFR ( Amer) Est GFR (Non-Af Amer) BUN/Creatinine Ratio Glucose Lactic Acid 5.3 H* Calcium Magnesium Total Bilirubin AST ALT Alkaline Phosphatase CK-MB (CK-2) Myoglobin Troponin I B-Natriuretic Peptide Total Protein Albumin Globulin Albumin/Globulin Ratio TSH Salicylates Urine Opiates Screen Acetaminophen Ur Barbiturates Screen Ur Phencyclidine Scrn Ur Amphetamines Screen U Benzodiazepines Scrn Urine Cocaine Screen U Cannabinoids Screen Blood Type Antibody Screen Imaging: CT brain 02/07 - no focal findings CXR 02/07 - bilateral infiltrates consistent with possible pulm edema; next CXR with left PTX; next CXR with left cathetor, improved PTX, still mild bilateral infiltrates TTE 02/07 - lvef 40-50%, infero and mild pratibha hypokinesis Assessment: 54y F w/pmhx of diet controlled DM, Vitiligo, past h/o mild-mod AI; 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 CPR started at work. EMS arrived, found PEA rhythm, gave 20min of CPR. En route to ED, shockable rhythm noted and defibrillated. In ER, PEA arrest, CPR continued with ROSC in ~5min ?, total Downtime estimated to be 30-40min suspected. Already intubated in field I suspect. In ER, noted to have pulmonary edema on CXR. EKG with inferior and anterolateral ST depressions. Cardiology consulted but deemed to likely have some degree of global ischemia from cardiac arrest. Overnight TTE performed and demonstrated anterior and inferior wall hypokinesis with mild LV systolic dysfunction. She was not taken to engineering lab technician. She was started on Therapeutic hypothermia tx, IV heparin for possible ACS. Overnight noted to have some posturing, so neurology was consulted. 02/08 - VFib x1 -VT/VF/PEA Cardiac Arrest -Therapeutic Hypothermia 02/07 -Acute Hypoxic Respiratory Failure -Pulmonary Edema -Iatrogenic Left PTX 02/07; s/p left Left PTX -Shock liver -VT/VF -Upper GI bleed, suspected gastritis Plan: Neuro- -neuro exam limited due to sedation -on hypothermia protocol now for neuroprotection -CT brain 02/07 reviewed; plan for repeat CT brain tomorrow -neuro consult -maintain propofol and versed for possible seizure -EEG to be obtained to eal for any subclininical seizures -asp prec CVS- -s/p cardiac arrest, Vt/VT; repeat eepisode 02/08 AM -shock, suspect mixed cardiogenic/distributive -Amio IV bolus and Infusion for recurrent VT -maintained on levophed pressor support -maintain MAP>65, SBP>90 -good urine output; start NS 125cc/hr -replete IV KCL; BMP q4h -repeat EKG x1 now; trend troponins which have not peaked yet -noted previous Qtc 520 on admission, still ~500 -cont IV heparin and Asa for ACS -followup with cardiology Resp- -intubated 80% fio2 -no plan for weaning -CXR 02/08 with ett above mini, bilateral infiltrates+; Left PTX not present now , CT+ -minimal secretions -VAP bundle -Bronchodilators PRN, asp prec ID- hypothermia protocol. wbc 15. CXR with bilatral infiltrates+. Will start IV zosyn for aspiration coverage for now. GI- mild coffee ground initially, seems better now; cont PPI IV BID -NPO Renal- -Cr okay; making urine -Hypokalemia; may be from ongoing diuresis, given lasix and cold-diuresis; replete KCL IV -metabolic acidosis improving -ramey+ Heme- hg 11; pending repeat later today -heparin IV for ACS -Asa for ACS -DVT proph mech/chem Endo- Maintain BG<200, insulin protocol as needed -check cortisol, tsh Musculsk- pressure ulcer prophylaxis. Bedrest. Wounds- none Nutrition- NPO DVT prophylaxis: SCD, IV heparin GI prophylaxis: PPI Central Line: RIJ 02/07 Arterial Line: Right fem 02/08 Ramey Cathetor: yes Disposition: Patient requires Critical Care/ICU for cardiac arrest, shock, hypoxic respiratory failure, VT/VF Patient Clinical Status: unstable, critical Code Status: full code Total Critical Care time is 90 minutes, excluding procedures/teaching Dorian Cruz MD Exterior Interior Specialist (Electronically Signed)
--- NOTE | 2019-02-08 10:03 | CONS ---
CONSULTATION REPORT: DATE OF CONSULT: 02/08/19 PATIENT OF: Dr. Johnson, Dr. Eaton, and Dr. Charlton. 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 She just was caught and brought to the ground. She was found to have a cardiac arrest with pulseless electrical activity and ventricular fib requiring 20 minutes of CPR in the field and further CPR once brought to the ER. She required intubation, 3 rounds of defibrillation, epinephrine, and bicarb. Her initial blood gas was done at 11: 30 and had a pH of 7.04, pCO2 of 38 with pO2 of 88, and a base excess of -19.7. I was called at about 3:30 this past night because she had some continued posturing while on propofol. We have loaded her in 2 stages with Keppra and the propofol was to be increased. This was done gradually because she sustained a pneumothorax and had needed pressors before the propofol could be further pushed. She has been in good general concepcion, although she has been under stress recently because her father 2 weeks ago. She has a past history of vitiligo, diet- controlled diabetes, and ueod-ap-xpaxaczx aortic insufficiency. She is on no home meds and has had no recent surgery. She works at a restaurant. She does not use drugs or alcohol per the . She is currently on propofol, with increasing doses. She is getting albuterol inhalers q.4 hours p.r.n. wheezing, sliding scale insulin, Levophed drip, and Protonix 40 mg q.24 hours. She should be maintained on Keppra 750 twice a day. PHYSICAL EXAMINATION: On exam, temperature 97.9, pulse 121, respirations 24, and blood pressure 128/78. On exam, pupils are 2 mm and not reactive. Red reflexes present bilaterally. Once the propofol was increased while I was here , she had no movements. As the propofol was going up, she would have some tonic flexion in her arms when she had noxious stimuli on either side of the body. She was breathing over the vent. Corneals were sluggish, but present at this time. DIAGNOSTIC STUDIES/LAB DATA: I reviewed her CT scan, which showed loss of [place] - white matter. Differential that was read by the radiologist is normal, but I think it clearly shows early signs of diffuse hypoxic ischemic injury to both sides. Her EEG just showed diffuse significant attenuation of the background consistent with encephalopathy, but the propofol could clearly be contributing to this. Her labs include her prior blood gas mentioned above. Her most recent blood gas is pH 7.23, pCO2 of 40, pO2 of 70. Chemistry showed a troponin of 0.43. Calcium of 6.5, BUN of 24, creatinine of 0.98, normal sodium, potassium of 3, and bicarbonate of 19. TSH was normal. White count 15.3, hematocrit 36, platelets 237. Normal INR and PTT. IMPRESSION: I discussed with Dr. Charlton this case a few times and I had a prolonged discussion with the discussing with him that she sustained a severe insult to her brain due to a hypoxic ischemic event from her cardiac arrest. This has led to a significant acidosis marked by a pH of 7 and a base deficit of more than 19 a couple of hours after the initial insult and so, it is likely that she was more acidotic before her CO2 was corrected and before she got medical treatment. Also, her CT scan showing loss of [place]-white matter differential so early on is a bad prognostic sign and her neurological presentation is of concern. She remains on a cooling blanket. She should be hyperventilated. I have discussed this with Dr. Charlton. I will discuss this with the doctor taking over for her. We will continue the Keppra 750 twice a day and we will have enough propofol that she is sedated and not straining for the next couple of days' time and I discussed with the and the medical staff that this may lead to a period where it may take a couple of days to get the propofol out of her system, but this will allow time and we will with time see how clinically she is feeling. I discussed with the that one possibility with severe hypoxic ischemic insult is swelling of the brain to the point of brain herniation and , and this could happen usually within the first week and that if she survives, the concern is that she will have severe brain injury. I discussed with him that it is too soon to know for sure what her course will be, but I am concerned that she has a poor prognosis as I discussed just above. Thank you for sharing her case. [id number]/[facility] #: [id number] MARCIE
[2019-02-08] MEDS ORDERED: Amiodarone 150 MG IVPREMIX* 150 MG/100 ML BAG IV ONE (10:51)
--- NOTE | 2019-02-08 11:11 | PN ---
Progress Note - Progress Note Date of Service: 02/08/19 Note: Arterial Line Procedure Note Indication: frequent arterial blood gases , invasive hemodynamic monitoring Diagnosis: cardiac arrest, acute hypoxic respiratory failure, shock Performed by: Dorian Cruz MD Consent: Emergent [place] Protocol: Time-out was performed and the correct patient and site were verified - Prior labs/history was reviewed prior to procedure - Full sterile precautions with chlorhexidine/full drapes/gowns/gloves utilized - Right femoral artery visualized with US - Vessel accessed with return of pulsatile blood. One attempt was made to access vessel. A cathetor was threaded over wire into vessel. Good arterial waveform was observed on monitor. - Arterial Catheter was sutured to site; dressing applied to site. EBL <3 cc No immediate complications noted, patient tolerated procedure well. Dorian Cruz MD Intelligence Support Officer (Electronically Signed)
[2019-02-08] MEDS: Insulin LISPRO* 1 UNITS UNIT SUBCUT SCH ×4 (11:17→23:17)
[2019-02-08 11:19] LABS: BUN/Creatinine Ratio 25.9 (8-20); EGFR African American 84.3 (>60); EGFR Non-African American 69.7 (>60); Potassium 3.3 mmol/L (3.5-5.0)
[2019-02-08 11:20] LABS: Magnesium 1.3 mg/dL (1.9-2.7); Phosphorus 2.4 mg/dL (2.5-5.0)
[2019-02-08] MEDS ORDERED: Potassium Phosphate IV* 30 MMOLE in NS 0.9% 250 ML* 250 ML IVPB ONE (11:39)
[2019-02-08] MEDS ORDERED: Magnesium Sulfate IV* 2 GM in NS 0.9% 100 ML* 100 ML IV ONE (11:39)
[2019-02-08] MEDS: Piperacillin/Tazobac ADVAN(*) 3.375 GM in NS 0.9% 100 ML* 100 ML IVPB SCH ×2 (12:05→20:18)
[2019-02-08] MEDS ORDERED: Magnesium Sulfate 2 GM IV* 2 GM/50 ML BAG IVPB ONE (13:00)
[2019-02-08] MEDS ORDERED: Sodium Bicarbonate 8.4% IV* 50 ML VIAL IV ONE ×3 (13:09→19:50)
[2019-02-08] MEDS ORDERED: Magnesium Sulfate 2 GM IV* 2 GM/50 ML BAG ONE ×2 (13:11→15:00)
[2019-02-08] MEDS: Chlorhexidine MOUTHWASH 0.12%* 15 ML UDC TOPICAL SCH ×4 (13:12→23:23)
[2019-02-08 13:39] LABS: Creatine Kinase 2460 U/L (10-223)
[2019-02-08 15:11] LABS: TSH (Thyroid Stimulating Horm) 0.66 mcIU/mL (0.34-5.60)
[2019-02-08] MEDS ORDERED: Vasopressin* 100 UNITS in D5W 250 ML BAG* 245 ML IVPB SCH (16:00)
[2019-02-08 16:13] LABS: Hematocrit 26 % (33-41); Hemoglobin 8.5 g/dL (12.0-16.0)
[2019-02-08 16:29] LABS: BUN/Creatinine Ratio 26.3 (8-20); EGFR African American 90.4 (>60); EGFR Non-African American 74.7 (>60)
[2019-02-08 16:30] LABS: Magnesium 3.7 mg/dL (1.9-2.7); Phosphorus 4.9 mg/dL (2.5-5.0)
[2019-02-08 16:35] LABS: Calcium 5.5 mg/dL (8.6-10.3)
[2019-02-08] MEDS ORDERED: Phenylephrine 10 MG/ML VIAL* 50 MG in NS 0.9% 250 ML* 245 ML IV ONE (16:49)
[2019-02-08] MEDS: Vasopressin* 100 UNITS in D5W 250 ML BAG* 245 ML IVPB SCH (17:50)
--- NOTE | 2019-02-08 18:10 | PN ---
Progress Note - Progress Note Date of Service: 02/08/19 Note: Two episodes of VT today. Closer observation of both episodes and it seems that both episodes may have been Torsades. Mag 1.3 earlier, K 3.0 in AM KCL has been given, additional Mag 2gm IV over 10min given after second event. Last Mg and K levels better. cont q4h checks with aggressive replenishment. New EKG with qTc 567 now Amio infusion has finished for 1mg/min; will hold further amio as it may increase qtc further. will avoid further antiarrythmics unless needed. if another episode, have kept Mgsulfate on crashcart/near patient in room for immediate push and she would likely need defibrillation also. Full TTE tomorrow Still remains in shock, on IVF infusion Making urine but slower Increase IVF infusion cont IV abx for possible aspiration discussed this with Dr Eaton about likely Torsades events and that maybe this caused this initial cardiac event. Overall status remains guarded, critical. Stable at the momement. On levophed/ vaso, added jonathan. Additional Epi being avboided but may be needed if it comes to. Risk of further arrythmia ppt'ion. Dorian Cruz MD Hyperion Analyst (electronically signed)
[2019-02-08 18:31] LABS: BUN/Creatinine Ratio 24.7 (8-20); Blood Urea Nitrogen 21 mg/dL (6-24); CO2 Carbon Dioxide 15 mmol/L (22-32); EGFR African American 84.3 (>60); EGFR Non-African American 69.7 (>60); Glucose 298 mg/dL (70-100); Sodium 140 mmol/L (135-145)
[2019-02-08 18:33] LABS: Anion Gap 10 mmol/L (2-11); Chloride 115 mmol/L (101-111); Potassium 5.1 mmol/L (3.5-5.0)
[2019-02-08 18:37] LABS: Calcium 5.1 mg/dL (8.6-10.3)
[2019-02-08 18:41] LABS: Troponin I 0.33 ng/mL (<0.04)
[2019-02-08] MEDS ORDERED: NS 0.45% 1000 ML BAG* 925 ML with Sodium Bicarbonate 8.4% IV* 75 MEQ IV SCH ×2 (20:00)
[2019-02-08] MEDS: Sodium Bicarbonate 8.4% IV* 75 MEQ in NS 0.45% 1000 ML BAG* 925 ML IV SCH (20:34)
[2019-02-08] MEDS: Carboxymethylcellulose/Glyceri 10 ML OPHTH.GEL lubricant eye gel BOTH EYES PRN (20:57)
[2019-02-08] MEDS ORDERED: Aspirin 81 mg CHEW TAB* 81 MG TAB.CHEW PO SCH (21:00)
[2019-02-08 22:23] LABS: EGFR African American 90.4 (>60); EGFR Non-African American 74.7 (>60); Magnesium 2.6 mg/dL (1.9-2.7); Phosphorus 4.6 mg/dL (2.5-5.0); Potassium 4.7 mmol/L (3.5-5.0)
[2019-02-08 22:24] LABS: Calcium 4.5 mg/dL (8.6-10.3)
[2019-02-08] MEDS ORDERED: Calcium Gluconate INJ* 2 GM in NS 0.9% 100 ML* 100 ML IV ONE ×2 (23:00→23:30)
[2019-02-09] MEDS: Norepinephrine 16MCG/ML IVPRE* 4,000 MCG/250 ML BAG IV SCH ×6 (00:27→16:55)
[2019-02-09] MEDS: Phenylephrine 10 MG/ML VIAL* 50 MG in NS 0.9% 250 ML* 245 ML IV SCH ×3 (01:18→19:30)
[2019-02-09] MEDS: Insulin LISPRO* 1 UNITS UNIT SUBCUT SCH ×3 (02:17→10:51)
[2019-02-09] MEDS: Chlorhexidine MOUTHWASH 0.12%* 15 ML UDC TOPICAL SCH ×6 (02:17→23:38)
[2019-02-09 02:35] LABS: BUN/Creatinine Ratio 24.4 (8-20); Blood Urea Nitrogen 21 mg/dL (6-24); CO2 Carbon Dioxide 15 mmol/L (22-32); EGFR African American 83.2 (>60); EGFR Non-African American 68.8 (>60); Glucose 165 mg/dL (70-100); Magnesium 2.7 mg/dL (1.9-2.7); Phosphorus 5.5 mg/dL (2.5-5.0); Sodium 144 mmol/L (135-145)
[2019-02-09 02:40] LABS: Anion Gap 12 mmol/L (2-11); Chloride 117 mmol/L (101-111)
[2019-02-09 02:41] LABS: Calcium 6.2 mg/dL (8.6-10.3)
[2019-02-09 02:42] LABS: Troponin I 0.32 ng/mL (<0.04)
[2019-02-09 02:52] LABS: Creatine Kinase 2185 U/L (10-223)
[2019-02-09] MEDS ORDERED: Sodium Bicarbonate 8.4% IV* 50 ML VIAL IV ONE ×3 (03:03→12:40)
[2019-02-09] MEDS ORDERED: Calcium Gluconate INJ* 2 GM in NS 0.9% 100 ML* 100 ML IV ONE ×3 (03:30→22:00)
[2019-02-09] MEDS: Propofol* 100 ML IV SCH ×2 (04:27→12:26)
[2019-02-09] MEDS: Piperacillin/Tazobac ADVAN(*) 3.375 GM in NS 0.9% 100 ML* 100 ML IVPB SCH ×3 (04:27→19:31)
[2019-02-09] MEDS: Pantoprazole IV* 40 MG IV SCH ×3 (05:53→23:38)
[2019-02-09 06:46] LABS: Hematocrit 12 % (33-41); Mean Corpuscular HGB Conc 33 g/dL (31-36); Mean Corpuscular Hemoglobin 22 pg (27-31); Mean Corpuscular Volume 68 fL (80-97); Mean Platelet Volume 9.4 fL (7.4-10.4); Platelet Count 105 10^3/uL (150-450); Red Blood Count 1.84 10^6 /uL (3.70-4.87); Red Cell Distribution Width 17 % (10.5-15); White Blood Count 10.7 10^3/uL (3.5-10.8)
[2019-02-09 06:47] LABS: Hemoglobin 4.1 g/dL (12.0-16.0)
[2019-02-09 06:55] LABS: Albumin 1.7 g/dL (3.2-5.2); Albumin/Globulin Ratio 1.3 (1-3); BUN/Creatinine Ratio 23.7 (8-20); Calcium 6.6 mg/dL (8.6-10.3); EGFR Non-African American 62.8 (>60); Globulin 1.3 g/dL (2-4); Indirect Bilirubin 0.3 mg/dL (0.3-1.0); Magnesium 2.7 mg/dL (1.9-2.7); Total Bilirubin 0.6 mg/dL (0.2-1.0)
[2019-02-09 07:01] LABS: Potassium 5.4 mmol/L (3.5-5.0)
[2019-02-09 07:16] LABS: Hematocrit 12 % (33-41); Hemoglobin 4.1 g/dL (12.0-16.0)
[2019-02-09] MEDS: MIDAZOLAM IV SCH ×2 (07:19)
[2019-02-09] MEDS: [UNRECOGNIZED DRUG - OTHER] IV SCH ×2 (07:19)
[2019-02-09] MEDS: Sodium Bicarbonate 8.4% IV* 75 MEQ in NS 0.45% 1000 ML BAG* 925 ML IV SCH (07:22)
[2019-02-09 07:59] LABS: Fibrinogen 259.8 mg/dL (110.8-404.3); INR 1.76 (0.77-1.02)
[2019-02-09] MEDS ORDERED: Vancomycin(*) 1,000 MG in NS 0.9% 250 ML* 250 ML IVPB ONE (08:40)
[2019-02-09] MEDS ORDERED: Vancomycin per Pharmacy* NOTE FOLLOW UP SCH (09:00)
--- NOTE | 2019-02-09 10:57 | PN ---
Progress Note - Progress Note Date of Service: 02/09/19 Note: Progress Note -- Critical Care 24 hour events -remains intubated -on 3 pressors -2 VT episodes yesterday; given MgSulfate, KCL and Calcium, none furhter -remains on sedation and cooling to 35F -this morning hg drop to 4.1, for 3 prbc and 1 ffp now -family at bedside all night, updated at bedside -minimal secretions from ETT noted Tele: NSR Vitals: Vital Signs Temp 93.9 F 02/09/19 10:45 Pulse 79 02/09/19 09:15 Resp 18 02/09/19 10:56 BP 111/38 02/09/19 01:00 Pulse Ox 100 02/09/19 09:15 Intake & Output 02/08/19 02/09/19 02/09/19 18:59 06:59 18:59 Intake Total 1743.6 5915.8 586 Output Total 1060 705 240 Balance 683.6 5210.8 346 Weight 57.3 kg Intake: IV Fluids 1743.6 5800.8 KCl 55 Levophed 492 1528 Neosynephrine 309 Normal Saline 718 2153 Propofol 131 208 Sodium Bicarb 1127 amiodarone 132 72.8 heparin 76.7 59 kphos 46.9 203 magnesium 50 58 zosyn 42 83 IVPB 115 zosyn 115 Packed Cells 586 Output: Urine 170 Ramey 890 705 240 O2/Vent: AC 16/450/+12/100% Infusions: levophed 15, prop, versed 4, off heparin IV, José Manuel infusion, 1/2ns + 75meq bicarb 100cc/hr Current Medications: Acetaminophen (Tylenol Supp*) 650 mg IL Q6H PRN PRN Reason: FEVER Albuterol (Ventolin 2.5 Mg/3 Ml Neb.Natalie*) 2.5 mg INH [id number] AWAKE PRN PRN Reason: sob/wheezing Carboxymethylcellulose/Glycerin (Refresh Optive Gel Eye Gel) 1 applic BOTH EYES Q4H PRN PRN Reason: DRY EYE Last Admin: 02/08/19 20:57 Dose: 1 applic Chlorhexidine Gluconate (Peridex Mouth Wash 0.12%*) 15 ml TOPICAL Q4H [facility] Last Admin: 02/09/19 07:45 Dose: 15 ml Dextrose (D50w Syringe 50 Ml*) 12.5 gm IV PUSH .FOR FS < 60 - SS PRN PRN Reason: FS < 60 Propofol (Diprivan*) 100 mls @ 1.497 mls/hr IV .(Initial Rate) [facility]; Protocol Last Admin: 02/09/19 04:27 Dose: 12 mls/hr Norepinephrine Bitartrate (Levophed 16 Mcg/Ml Premix Bag*) 4,000 mcg in 250 mls @ 30 mls/hr IV .INITIAL RATE [facility] Last Admin: 02/09/19 08:27 Dose: 113 mls/hr Midazolam HCl 100 mg/ Sodium (Chloride) 100 mls @ 4 mls/hr IV Q24H [facility]; Protocol Last Admin: 02/09/19 07:19 Dose: 4 mls/hr Piperacillin Sod/Tazobactam (Sod 3.375 gm/ Sodium Chloride) 100 mls @ 25 mls/ hr IVPB Q8H [facility] Last Admin: 02/09/19 04:27 Dose: 25 mls/hr Vasopressin 100 units/ (Dextrose) 250 mls @ 12 mls/hr IVPB Q20H [facility]; Protocol Last Admin: 02/08/19 17:50 Dose: 12 mls/hr Sodium Bicarbonate 75 meq/ (Sodium Chloride) 1,000 mls @ 100 mls/hr IV Q10H [facility] Last Admin: 02/09/19 07:22 Dose: 100 mls/hr Phenylephrine HCl 50 mg/ (Sodium Chloride) 250 mls @ 30 mls/hr IV Q8H [facility]; Protocol Last Admin: 02/09/19 01:18 Dose: 18 mls/hr Insulin Human Lispro (Humalog*) 0 units SUBCUT Q4H [facility]; Protocol Last Admin: 02/09/19 10:51 Dose: Not Given Pantoprazole Sodium (Protonix Iv*) 40 mg IV Q24H [facility] Last Admin: 02/09/19 05:53 Dose: 40 mg Physical Exam: Constitutional: intubated, on sedation, no distress, no diaphoresis Head: normocephalic, atraumatic Eyes: no pallor, no icterus ENT: moist mucous membranes Neck: soft, supple, no jvd CVS: normal rate, regular, no murmur Resp: bilateral air entry, mild right sided rhales+, no wheeze, no rhonchi, no acc muscle use Abdomen/GI: soft, mildly tense, nondistended, BS diminished Ext/Msk: cool, pulses+, no edema Skin: intact, cool; vitiligo+ Neuro: sedated, intubated, pinpoint pupils; limited neuro exam due to sedation Labs: Laboratory Results - last 24 hr 02/07/19 02/08/19 02/08/19 22:52 10:45 10:45 WBC RBC Hgb Hct MCV MCH MCHC RDW Plt Count MPV INR (Anticoag Therapy) APTT Fibrinogen Patient Temperature ABG pH ABG pH (Temp Correct) ABG pCO2 ABG pCO2 (Temp Corrct ABG pO2 ABG pO2 (Temp Correct ABG HCO3 ABG O2 Saturation ABG Base Excess Respiration Rate O2 Delivery Device Ventilator Type Vent Mode FiO2 Inspiratory Time PEEP Pressure Support Pressure Control EPAP IPAP BiPAP Sodium Potassium Chloride 112 H Carbon Dioxide Anion Gap 12 H BUN Creatinine Est GFR ( Amer) Est GFR (Non-Af Amer) BUN/Creatinine Ratio Glucose POC Glucose (mg/dL) Lactic Acid Calcium 6.0 L* Phosphorus Magnesium Total Bilirubin Direct Bilirubin Indirect Bilirubin AST ALT Alkaline Phosphatase Total Creatine Kinase 2460 H Troponin I 0.50 H* Total Protein Albumin Globulin Albumin/Globulin Ratio TSH 0.66 Cortisol 45.95 Influenza A (Rapid) Blood Type B Positive Antibody Screen Negative Crossmatch See Detail 02/08/19 02/08/19 02/08/19 10:45 12:15 13:43 WBC RBC Hgb Hct MCV MCH MCHC RDW Plt Count MPV INR (Anticoag Therapy) APTT > 212.0 H* Fibrinogen Patient Temperature Not Reportable ABG pH 7.22 L ABG pH (Temp Correct) Not Reportable ABG pCO2 31 L ABG pCO2 (Temp Corrct Not Reportable ABG pO2 85 ABG pO2 (Temp Correct Not Reportable ABG HCO3 14.1 L ABG O2 Saturation 96.5 ABG Base Excess -13.8 L Respiration Rate 12 O2 Delivery Device mechanical ventilator Ventilator Type Not Reportable Vent Mode apv/cmv FiO2 70 Inspiratory Time Not Reportable PEEP 12 Pressure Support Not Reportable Pressure Control Not Reportable EPAP Not Reportable IPAP Not Reportable BiPAP Not Reportable Sodium Potassium Chloride Carbon Dioxide Anion Gap BUN Creatinine Est GFR ( Amer) Est GFR (Non-Af Amer) BUN/Creatinine Ratio Glucose POC Glucose (mg/dL) Lactic Acid 4.6 H* Calcium Phosphorus Magnesium Total Bilirubin Direct Bilirubin Indirect Bilirubin AST ALT Alkaline Phosphatase Total Creatine Kinase Troponin I Total Protein Albumin Globulin Albumin/Globulin Ratio TSH Cortisol Influenza A (Rapid) Blood Type Antibody Screen Crossmatch 02/08/19 02/08/19 02/08/19 14:00 14:06 16:00 WBC RBC Hgb Hct MCV MCH MCHC RDW Plt Count MPV INR (Anticoag Therapy) APTT Fibrinogen Patient Temperature ABG pH ABG pH (Temp Correct) ABG pCO2 ABG pCO2 (Temp Corrct ABG pO2 ABG pO2 (Temp Correct ABG HCO3 ABG O2 Saturation ABG Base Excess Respiration Rate O2 Delivery Device Ventilator Type Vent Mode FiO2 Inspiratory Time PEEP Pressure Support Pressure Control EPAP IPAP BiPAP Sodium 140 Potassium 4.0 Chloride 113 H Carbon Dioxide 18 L Anion Gap 9 BUN 21 Creatinine 0.80 Est GFR ( Amer) 90.4 Est GFR (Non-Af Amer) 74.7 BUN/Creatinine Ratio 26.3 H Glucose 232 H POC Glucose (mg/dL) 205 H Lactic Acid 4.3 H* Calcium 5.5 L* Phosphorus Magnesium Total Bilirubin Direct Bilirubin Indirect Bilirubin AST ALT Alkaline Phosphatase Total Creatine Kinase Troponin I Total Protein Albumin Globulin Albumin/Globulin Ratio TSH Cortisol Influenza A (Rapid) Blood Type Antibody Screen Crossmatch 02/08/19 02/08/19 02/08/19 16:00 16:00 18:00 WBC RBC Hgb 8.5 L Hct 26 L MCV MCH MCHC RDW Plt Count MPV INR (Anticoag Therapy) APTT Fibrinogen Patient Temperature ABG pH ABG pH (Temp Correct) ABG pCO2 ABG pCO2 (Temp Corrct ABG pO2 ABG pO2 (Temp Correct ABG HCO3 ABG O2 Saturation ABG Base Excess Respiration Rate O2 Delivery Device Ventilator Type Vent Mode FiO2 Inspiratory Time PEEP Pressure Support Pressure Control EPAP IPAP BiPAP Sodium 140 Potassium 5.1 H Chloride 115 H Carbon Dioxide 15 L Anion Gap 10 BUN 21 Creatinine 0.85 Est GFR ( Amer) 84.3 Est GFR (Non-Af Amer) 69.7 BUN/Creatinine Ratio 24.7 H Glucose 298 H POC Glucose (mg/dL) Lactic Acid Calcium 5.1 L* Phosphorus 4.9 Magnesium 3.7 H Total Bilirubin Direct Bilirubin Indirect Bilirubin AST ALT Alkaline Phosphatase Total Creatine Kinase 2239 H Troponin I 0.33 H* Total Protein Albumin Globulin Albumin/Globulin Ratio TSH Cortisol Influenza A (Rapid) Blood Type Antibody Screen Crossmatch 02/08/19 02/08/19 02/08/19 18:00 18:03 19:02 WBC RBC Hgb Hct MCV MCH MCHC RDW Plt Count MPV INR (Anticoag Therapy) APTT Fibrinogen Patient Temperature Not Reportable ABG pH 7.22 L ABG pH (Temp Correct) Not Reportable ABG pCO2 32 L ABG pCO2 (Temp Corrct Not Reportable ABG pO2 278 H ABG pO2 (Temp Correct Not Reportable ABG HCO3 14.5 L ABG O2 Saturation 98.4 H ABG Base Excess -13.4 L Respiration Rate 16 O2 Delivery Device mechanical ventilatro Ventilator Type Not Reportable Vent Mode apv/cmv FiO2 100 Inspiratory Time Not Reportable PEEP 12 Pressure Support Not Reportable Pressure Control Not Reportable EPAP Not Reportable IPAP Not Reportable BiPAP Not Reportable Sodium Potassium Chloride Carbon Dioxide Anion Gap BUN Creatinine Est GFR ( Amer) Est GFR (Non-Af Amer) BUN/Creatinine Ratio Glucose POC Glucose (mg/dL) 341 H Lactic Acid 6.0 H* Calcium Phosphorus Magnesium Total Bilirubin Direct Bilirubin Indirect Bilirubin AST ALT Alkaline Phosphatase Total Creatine Kinase Troponin I Total Protein Albumin Globulin Albumin/Globulin Ratio TSH Cortisol Influenza A (Rapid) Blood Type Antibody Screen Crossmatch 02/08/19 02/08/19 02/08/19 21:55 21:55 21:55 WBC RBC Hgb Hct MCV MCH MCHC RDW Plt Count MPV INR (Anticoag Therapy) APTT 216.7 H* Fibrinogen Patient Temperature ABG pH ABG pH (Temp Correct) ABG pCO2 ABG pCO2 (Temp Corrct ABG pO2 ABG pO2 (Temp Correct ABG HCO3 ABG O2 Saturation ABG Base Excess Respiration Rate O2 Delivery Device Ventilator Type Vent Mode FiO2 Inspiratory Time PEEP Pressure Support Pressure Control EPAP IPAP BiPAP Sodium 143 Potassium 4.7 Chloride 118 H Carbon Dioxide 17 L Anion Gap 8 BUN 20 Creatinine 0.80 Est GFR ( Amer) 90.4 Est GFR (Non-Af Amer) 74.7 BUN/Creatinine Ratio 25.0 H Glucose 246 H POC Glucose (mg/dL) Lactic Acid 7.0 H* Calcium 4.5 L* Phosphorus 4.6 Magnesium 2.6 Total Bilirubin Direct Bilirubin Indirect Bilirubin AST ALT Alkaline Phosphatase Total Creatine Kinase Troponin I Total Protein Albumin Globulin Albumin/Globulin Ratio TSH Cortisol Influenza A (Rapid) Blood Type Antibody Screen Crossmatch 02/08/19 02/09/19 02/09/19 23:14 02:00 02:00 WBC RBC Hgb Hct MCV MCH MCHC RDW Plt Count MPV INR (Anticoag Therapy) APTT 99.2 H Fibrinogen Patient Temperature ABG pH ABG pH (Temp Correct) ABG pCO2 ABG pCO2 (Temp Corrct ABG pO2 ABG pO2 (Temp Correct ABG HCO3 ABG O2 Saturation ABG Base Excess Respiration Rate O2 Delivery Device Ventilator Type Vent Mode FiO2 Inspiratory Time PEEP Pressure Support Pressure Control EPAP IPAP BiPAP Sodium 144 Potassium 5.0 Chloride 117 H Carbon Dioxide 15 L Anion Gap 12 H BUN 21 Creatinine 0.86 Est GFR ( Amer) 83.2 Est GFR (Non-Af Amer) 68.8 BUN/Creatinine Ratio 24.4 H Glucose 165 H POC Glucose (mg/dL) 261 H Lactic Acid Calcium 6.2 L* Phosphorus 5.5 H Magnesium 2.7 Total Bilirubin Direct Bilirubin Indirect Bilirubin AST ALT Alkaline Phosphatase Total Creatine Kinase 2185 H Troponin I 0.32 H* Total Protein Albumin Globulin Albumin/Globulin Ratio TSH Cortisol Influenza A (Rapid) Blood Type Antibody Screen Crossmatch 02/09/19 02/09/19 02/09/19 02:02 06:00 06:00 WBC RBC Hgb Hct MCV MCH MCHC RDW Plt Count MPV INR (Anticoag Therapy) APTT Fibrinogen Patient Temperature 35.2 ABG pH 7.27 L ABG pH (Temp Correct) Inventory Coordinator ABG pCO2 31 L ABG pCO2 (Temp Corrct Not Reportable ABG pO2 275 H ABG pO2 (Temp Correct Not Reportable ABG HCO3 16.1 L ABG O2 Saturation 99.9 H ABG Base Excess -11.4 L Respiration Rate 16 O2 Delivery Device Vent Ventilator Type 450 Vent Mode Apv/cmv FiO2 100 Inspiratory Time Not Reportable PEEP 12 Pressure Support Not Reportable Pressure Control Not Reportable EPAP Not Reportable IPAP Not Reportable BiPAP Not Reportable Sodium 147 H Potassium 5.4 H Chloride 117 H Carbon Dioxide 15 L Anion Gap 15 H BUN 22 Creatinine 0.93 Est GFR ( Amer) 76.0 Est GFR (Non-Af Amer) 62.8 BUN/Creatinine Ratio 23.7 H Glucose 80 POC Glucose (mg/dL) 200 H Lactic Acid Calcium 6.6 L Phosphorus 7.0 H Magnesium 2.7 Total Bilirubin 0.60 Direct Bilirubin 0.30 H Indirect Bilirubin 0.3 AST 1052 H ALT 816 H Alkaline Phosphatase 30 L Total Creatine Kinase Troponin I Total Protein 3.0 L Albumin 1.7 L Globulin 1.3 L Albumin/Globulin Ratio 1.3 TSH Cortisol Influenza A (Rapid) Blood Type Antibody Screen Crossmatch 02/09/19 02/09/19 02/09/19 06:00 06:00 06:00 WBC 10.7 RBC 1.84 L Hgb 4.1 L* Hct 12 L MCV 68 L MCH 22 L MCHC 33 RDW 17 H Plt Count 105 L MPV 9.4 INR (Anticoag Therapy) 1.76 H APTT Fibrinogen 259.8 Patient Temperature ABG pH ABG pH (Temp Correct) ABG pCO2 ABG pCO2 (Temp Corrct ABG pO2 ABG pO2 (Temp Correct ABG HCO3 ABG O2 Saturation ABG Base Excess Respiration Rate O2 Delivery Device Ventilator Type Vent Mode FiO2 Inspiratory Time PEEP Pressure Support Pressure Control EPAP IPAP BiPAP Sodium Potassium Chloride Carbon Dioxide Anion Gap BUN Creatinine Est GFR ( Amer) Est GFR (Non-Af Amer) BUN/Creatinine Ratio Glucose POC Glucose (mg/dL) Lactic Acid 13.1 H* Calcium Phosphorus Magnesium Total Bilirubin Direct Bilirubin Indirect Bilirubin AST ALT Alkaline Phosphatase Total Creatine Kinase Troponin I Total Protein Albumin Globulin Albumin/Globulin Ratio TSH Cortisol Influenza A (Rapid) Blood Type Antibody Screen Crossmatch 02/09/19 02/09/19 02/09/19 06:30 06:57 10:18 WBC RBC Hgb 4.1 L* Hct 12 L MCV MCH MCHC RDW Plt Count MPV INR (Anticoag Therapy) APTT Fibrinogen Patient Temperature ABG pH ABG pH (Temp Correct) ABG pCO2 ABG pCO2 (Temp Corrct ABG pO2 ABG pO2 (Temp Correct ABG HCO3 ABG O2 Saturation ABG Base Excess Respiration Rate O2 Delivery Device Ventilator Type Vent Mode FiO2 Inspiratory Time PEEP Pressure Support Pressure Control EPAP IPAP BiPAP Sodium 145 Potassium 6.2 H* Chloride 115 H Carbon Dioxide 14 L* Anion Gap 16 H BUN 27 H Creatinine 1.16 H Est GFR ( Amer) 58.9 Est GFR (Non-Af Amer) 48.7 BUN/Creatinine Ratio 23.3 H Glucose 55 L POC Glucose (mg/dL) 104 H Lactic Acid Calcium 6.1 L* Phosphorus Magnesium Total Bilirubin Direct Bilirubin Indirect Bilirubin AST ALT Alkaline Phosphatase Total Creatine Kinase Troponin I Total Protein Albumin Globulin Albumin/Globulin Ratio TSH Cortisol Influenza A (Rapid) Blood Type Antibody Screen Crossmatch 02/09/19 02/09/19 02/09/19 10:18 10:18 10:57 WBC RBC Hgb Hct MCV MCH MCHC RDW Plt Count MPV INR (Anticoag Therapy) APTT Fibrinogen Patient Temperature ABG pH ABG pH (Temp Correct) ABG pCO2 ABG pCO2 (Temp Corrct ABG pO2 ABG pO2 (Temp Correct ABG HCO3 ABG O2 Saturation ABG Base Excess Respiration Rate O2 Delivery Device Ventilator Type Vent Mode FiO2 Inspiratory Time PEEP Pressure Support Pressure Control EPAP IPAP BiPAP Sodium Potassium Chloride Carbon Dioxide Anion Gap BUN Creatinine Est GFR ( Amer) Est GFR (Non-Af Amer) BUN/Creatinine Ratio Glucose POC Glucose (mg/dL) 64 L Lactic Acid Calcium Phosphorus 9.1 H Magnesium 2.7 Total Bilirubin Direct Bilirubin Indirect Bilirubin AST ALT Alkaline Phosphatase Total Creatine Kinase Troponin I Total Protein Albumin Globulin Albumin/Globulin Ratio TSH Cortisol Influenza A (Rapid) Positive A Blood Type Antibody Screen Crossmatch Imaging: CT brain 02/07 - no focal findings CXR 02/07 - bilateral infiltrates consistent with possible pulm edema; next CXR with left PTX; next CXR with left cathetor, improved PTX, still mild bilateral infiltrates TTE 02/07 - lvef 40-50%, infero and mild pratibha hypokinesis cxr 02/09 - ett above mini, more consistent RML/RLL consolidation++ Assessment: 54y F w/pmhx of diet controlled DM, Vitiligo, past h/o mild-mod AI; 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 CPR started at work. EMS arrived, found PEA rhythm, gave 20min of CPR. En route to ED, shockable rhythm noted and defibrillated. In ER, PEA arrest, CPR continued with ROSC in ~5min ?, total Downtime estimated to be 30-40min suspected. Already intubated in field I suspect. In ER, noted to have pulmonary edema on CXR. EKG with inferior and anterolateral ST depressions. Cardiology consulted but deemed to likely have some degree of global ischemia from cardiac arrest. Overnight TTE performed and demonstrated anterior and inferior wall hypokinesis with mild LV systolic dysfunction. She was not taken to director of cardiac cath lab. She was started on Therapeutic hypothermia tx, IV heparin for possible ACS. Overnight noted to have some posturing, so neurology was consulted. 02/08 - VFib x2 likely from torsades and electrolyte disturbances; elevated PTTs from IV heparin; remains cooling. 02/09 - drop in h/h to 4.1, transfusing, d/c IV heparin; plan to start rewarming phase -VT/VF/PEA Cardiac Arrest -Therapeutic Hypothermia 02/07 -Acute Hypoxic Respiratory Failure -Pulmonary Edema -Shock, multifactorial/unspecified -Right ML/LL pneumonia > Left side, suspect aspiration pneumonia -Iatrogenic Left PTX 02/07; s/p left Left PTX -Shock liver -VT/VF -Rhabdomyolysis -Upper GI bleed, suspected gastritis -acute blood loss anemia -prolonged qTC -VT 2/2 torsades de pointes 2/2 to hypokalemia/hypomag and hypocalcemia -hypoglycemia Plan: Neuro- -neuro exam limited due to sedation -on hypothermia protocol now for neuroprotection; plan to start rewarming today after blood products administered -CT brain 02/07 reviewed; plan for repeat CT brain after rewarming -neuro consult once rewarmed again -maintain propofol and versed for possible seizure -EEG to be obtained to eal for any subclininical seizures once rewarmed -asp prec CVS- -s/p cardiac arrest, Vt/VT; repeat eepisode 4/6 AM and PM -suspected Torsades from low K/Mg and then further Calcium -will maintain K, Mg and Ca levels higher -shock, suspect mixed cardiogenic/distributive -Prolonged Qtc; check EKG agian this morning; off amio -maintained on levophed/vaso/josé manuel pressor support -maintain MAP>65, SBP>90 -maintain adequate urine output but sometimes slows to 40cc/hr -cont 1/2ns + bicarb infusion, dec to 75cc/hr -BMP q4h -d/c Iv heparin; EKG improved, lower suspicion for ACS event; and now with drop in h/h; noted sensitive to heparin and elevated PTTs -for ffp x1 -cont IV heparin and Asa for ACS -followup with cardiology; discussed current plan and findings Resp- -Intubated AC 16/450/+12/+95% -ABG with Po2 50s, PCO 31 -CXR /7 with bilateral infiltrates R>L; no PTX on left -dec fio2 to 70%, increase RR to 18; repeat ABG at 12 -no plan for weaning -Maintain Left chest tube to continuous high wall suction; noted still has + air leak -minimal secretions -VAP bundle -Bronchodilators PRN, asp prec ID- hypothermia protocol. wbc 15->10.7. CXR 02/09 with bialteral infiltrates, R> L. Suspect aspiration events -Blood cx 1/2 sets with gram neg coccobacilli+ -repeat blood cultures -Cont IV zosyn (day#2) ; d/c vancomycin -check influenza screen and mrsa screen GI- mild coffee ground initially, seems better now; cont PPI IV BID -drop in h/h; no clear source of bleeding noted yet -potential abd source ? no furhter evidence of GI bleed -tranfuse PRBC -trend LFTs; suspect shock liver from hypotension/arrest -NPO Renal- -Cr okay' stable -nonoliguric WILNER -Hyperkalemia 6.2 now; but has hypoglycemia; no insulin for now; change to d5 bicarb infusino; lasix 20mg IV x1 now -Mg level okay; cont to trend -Metabolic aicdosis from LA production; ?GI source ?global ischemia -change IVF to d5w + 150meq bicarb @ 75cc/hr -lasix 20mg IV x1 now; reassess for additioanl lasix if she can tolerate -ramey+ Heme- hg 11->8.5->4.1; suspect abd source -transfuse 3 prbc now, finishing soon, BP improving -IV heparin and ASA discontinued -INR 1.7; FFP x1 to be given also -noted some drop in plt counts to 105 now; multifactorial cause -if repeat plt lower, will administer plt also in setting of bleeding -DVT proph mech Endo- -hypoglycemia; multifactorial from sepsis, shock, MODS -d/c SQ insulin -d50 amp x1; change IVF to d5+bicarb at 75cc/hr -cortisol was elevated yesterda Musculsk- pressure ulcer prophylaxis. Bedrest. Wounds- none Nutrition- NPO DVT prophylaxis: SCD GI prophylaxis: PPI Central Line: RIJ 02/07 Arterial Line: Right fem 02/08 Ramey Cathetor: yes Disposition: Patient requires Critical Care/ICU for hypothermia protocol, cardiac arrest, shock, hypoxic respiratory failure, VT/VF, acute blood loss anemia Patient Clinical Status: unstable, critical Code Status: full code Total Critical Care time is 60 minutes, excluding procedures/teaching Dorian Cruz MD Human Resource Adviser (Electronically Signed)
[2019-02-09 11:08] LABS: BUN/Creatinine Ratio 23.3 (8-20); EGFR African American 58.9 (>60); EGFR Non-African American 48.7 (>60)
[2019-02-09 11:09] LABS: Magnesium 2.7 mg/dL (1.9-2.7); Phosphorus 9.1 mg/dL (2.5-5.0)
[2019-02-09 11:13] LABS: Calcium 6.1 mg/dL (8.6-10.3); Potassium 6.2 mmol/L (3.5-5.0)
[2019-02-09 11:16] LABS: Influenza A Molecular POSITIVE (Negative)
[2019-02-09] MEDS ORDERED: Dextrose 50% Syringe 50 ML* 25 GM/50 ML SYRINGE IV PUSH PRN (11:16)
[2019-02-09] MEDS ORDERED: Furosemide IV* 10 MG/ML 2 ML VIAL (20 MG) IV ONE (11:16)
--- NOTE | 2019-02-09 11:50 | ECHO ---
Patient: JANE FLOOD [facility] Rec#: [id number] : 1965 Date: 02/09/2019 Age: 54y Height: 152 cm / 59.8 in Weight: 53 kg / 116.8 lbs Sex: F BSA: 1.48 Room#: ICU 6 Admit Date#: 02/09/2019 Type: Inpatient Referring: Viviane Eaton MD Reading: Viviane Eaton MD Customer Solutions Representative: Alejandra Lombardi RDCS,RDMS CC: Tai Johnson MD Transthoracic Echocardiogram Indication: Cardiac arrest BP: 99/44 HR: 82 Rhythm: NSR Findings History: DM, AOV insufficiency Technical Comments: The study is technically difficult. The study is technically limited due to poor acoustic windows. The study is technically limited due to patient being intubated and on a ventilator. Left Ventricle: The left ventricular chamber size is decreased. Mild to moderate concentric left ventricular hypertrophy is observed. Global left ventricular wall motion and contractility are within normal limits. The estimated ejection fraction is 55-60%. The assessment of diastolic function is non-diagnostic. Left Atrium: The left atrial chamber size is normal. Right Ventricle: The right ventricular chamber size and systolic function are within normal limits. The right ventricle wall thickness is moderately increased. Right Atrium: The right atrial cavity size is normal. Aortic Valve: There is no evidence of aortic valve thickening. Systolic excursion of the aortic valve is normal. There is no evidence of aortic regurgitation. There is no evidence of aortic stenosis. Mitral Valve: The mitral valve leaflets do not appear thickened. There is no evidence of mitral regurgitation. There is no evidence of mitral stenosis. Tricuspid Valve: The tricuspid valve leaflets are normal. There is no evidence of tricuspid valve regurgitation. Unable to estimate the right ventricular systolic pressure. Pulmonic Valve: The pulmonic valve structure is not well visualized. There is no evidence of pulmonic regurgitation. Pericardium: There is no significant pericardial effusion. Aorta: The ascending aorta is not well visualized. The aortic arch is not well visualized. The aortic root is normal in size. Pulmonary Artery: The main pulmonary artery is not well visualized. Venous: The inferior vena cava is not visualized. Conclusions The study is technically limited due to poor acoustic windows. The study is technically limited due to patient being intubated and on a ventilator. The study is technically difficult. The assessment of diastolic function is non-diagnostic. The estimated ejection fraction is 55-60%. The assessment of diastolic function is non-diagnostic. No significant valvular disease Measurements Name Value Normal Range RVIDd (AP) 2D 2.2 cm (0.9 - 2.6) RVDdMajor (2D) 2 cm (2.2 - 4.4) RAd ISD 4CH 3.5 cm (3.4 - 4.9) RA (A4C)W 3 cm (2.9 - 4.6) IVSd (2D) 1.2 cm (0.6 - 1) LVPWd (2D) 1.3 cm (0.6 - 1) LVIDd (2D) 3.2 cm (3.6 - 5.4) LVIDs (2D) 2.7 cm - LV FS (2D) 12 % (25 - 45) Aortic Annulus 2.1 cm (1.4 - 2.6) Ao root diameter (2D) 2.7 cm (2.1 - 3.5) LA dimension (AP) 2D 2.1 cm (2.3 - 3.8) LAd ISD 4CH 4 cm (2.9 - 5.3) LA ISD 4CH W 4.2 cm (2.5 - 4.5) Name Value Normal Range LV septal e' Vmax 0.05 m/sec - LV lateral e' Vmax 0.04 m/sec - Name Value Normal Range AV Vmax 0.9 m/sec - AV peak gradient 3.2 mmHg - LVOT Vmax 0.6 m/sec - LVOT peak gradient 1.4 mmHg - Name Value Normal Range PV Vmax 0.7 m/sec - PV peak gradient 2 mmHg -
[2019-02-09] MEDS: Patiromer POWDER* 8.4 GM PAK PO SCH (11:55)
[2019-02-09] MEDS ORDERED: D5W 1000 ML BAG* 850 ML with Sodium Bicarbonate 8.4% IV* 150 MEQ IV SCH ×2 (12:00)
[2019-02-09] MEDS: Carboxymethylcellulose/Glyceri 10 ML OPHTH.GEL lubricant eye gel BOTH EYES PRN (12:51)
[2019-02-09] MEDS: Sodium Bicarbonate 8.4% IV* 150 MEQ in D5W 1000 ML BAG* 850 ML IV SCH (12:51)
[2019-02-09] MEDS ORDERED: Sodium Bicarbonate 8.4% IV* 50 ML VIAL ONE ×2 (13:11→15:30)
[2019-02-09] MEDS ORDERED: levETIRAcetam 1000MG IVPREMIX* 1,000 MG/100 ML BAG IVPB ONE (14:29)
[2019-02-09] MEDS ORDERED: Calcium CHLORIDE 10% SYRINGE* 1 GM/10 ML ONE (15:30)
[2019-02-09 16:14] LABS: Hematocrit 27 % (33-41); Hemoglobin 9.4 g/dL (12.0-16.0); Mean Corpuscular HGB Conc 34 g/dL (31-36); Mean Corpuscular Hemoglobin 28 pg (27-31); Mean Corpuscular Volume 81 fL (80-97); Mean Platelet Volume 10.1 fL (7.4-10.4); Platelet Count 69 10^3/uL (150-450); Red Blood Count 3.38 10^6 /uL (3.70-4.87); Red Cell Distribution Width 22 % (10.5-15); White Blood Count 6.9 10^3/uL (3.5-10.8)
[2019-02-09 16:19] LABS: INR 1.85 (0.77-1.02)
[2019-02-09 16:30] LABS: Calcium 6.5 mg/dL (8.6-10.3); EGFR African American 50.7 (>60); EGFR Non-African American 41.9 (>60); Magnesium 2.6 mg/dL (1.9-2.7); Phosphorus 8.3 mg/dL (2.5-5.0)
[2019-02-09] MEDS: Vasopressin* 100 UNITS in D5W 250 ML BAG* 245 ML IVPB SCH (16:30)
[2019-02-09 16:44] LABS: Potassium 5.4 mmol/L (3.5-5.0)
[2019-02-09] MEDS ORDERED: Furosemide IV* 10 MG/ML 10 ML VIAL (100 MG) IV ONE (16:56)
--- NOTE | 2019-02-09 17:45 | PN ---
Progress Note - Progress Note Date of Service: 02/09/19 Note: Discussion had with family and Dr Arriola. Currently patient on hypothermia; plan for rewarming. We went over current neuro status, along with the fact that she remains acidotic , drop hemoglobin counts, some degree of hyperkalemia. There is a concern for worsening instability and potential that during rewarming phase she may become hemodyn unstable. Pressor requirements have been stable. Bicarb drips ahve change. Last EKG with Qtc 502 now, imrpoved from last qtc 560s CT brain and CT abd/pelvis repeat ordered by me prior to rewarming to better assess current status and preparation. CT brain appears similar, minimal edema, i am able to identify some deep structures; no overt hemorrhage or large infarct noted. CT chest I see shows bilateral consolidations+, small effusions and left small ptx with evidence of subcut emphysema anteriorly. CT abd/pelvis without focal free air but pending offical read We will proceed to rewarming. Cont IV abx; multifactorial cause of lactic acidosis. Cont BMP and ABGs q4h; cont electrolyte repletion as needed IV lasix 60mg IV x1 now to bring down potassium level hypoglycemia but slightly better; on d5+bicarb infusion; fingersticks q1h for now d/c versed cont propofol; once rewarmed will then d/c propofol and better reassessment of neuro status by morning will have EEG tomorrow and avoid sedation. Possible MRI brain tomorrow or further neurological testing may be indicated. Dorian Cruz MD Piano Professor
[2019-02-09 18:25] LABS: BUN/Creatinine Ratio 25.3 (8-20); Calcium 6.5 mg/dL (8.6-10.3); EGFR African American 45.2 (>60); EGFR Non-African American 37.3 (>60); Magnesium 2.6 mg/dL (1.9-2.7); Phosphorus 7.9 mg/dL (2.5-5.0); Potassium 4.4 mmol/L (3.5-5.0)
[2019-02-09] MEDS ORDERED: Oseltamivir SUSP* ORALSYR 6 MG/ML PO ONE (18:41)
[2019-02-09] MEDS ORDERED: NS 0.9% 500 ML* 500 ML IV ONE (22:00)
[2019-02-09 22:13] LABS: BUN/Creatinine Ratio 24.3 (8-20); EGFR African American 43.1 (>60); EGFR Non-African American 35.6 (>60); Potassium 3.8 mmol/L (3.5-5.0)
[2019-02-09 22:25] LABS: Calcium 6.2 mg/dL (8.6-10.3); Magnesium 2.5 mg/dL (1.9-2.7); Phosphorus 7.7 mg/dL (2.5-5.0)
--- NOTE | 2019-02-09 22:25 | PN ---
NEUROLOGICAL FOLLOWUP NOTE: DATE OF SERVICE: 02/09/19 PATIENT OF: Dr. Cruz. HISTORY: Since yesterday she remains on propofol, but has been placed on 3 pressors and has had 2 ventricular tach episodes yesterday and was given magnesium sulfate, KCl and calcium and has remained cold. She has had coagulopathy abnormalities and dropped her hematocrit, requiring a transfusion. MEDICATIONS: Include: 1. Propofol drip. 2. albuterol p.r.n. 3. Midazolam. 4. Piperacillin. 5. Vasopressin. 6. Phenylephrine. 7. Insulin. 8. Pantoprazole. The patient is intubated without response to noxious stimuli and limited by sedation. Pupils were pinpoint. She is not breathing over the vent at this point. I had a prolonged discussion with Dr. Cruz and the family, and discussed it would be appropriate to obtain a repeat CT scan of the head if possible to see if there is further edema and possibly herniation or even bleeding. Per Dr. Cruz, she is still unstable for any invasive procedures, but he agreed that when she was stable, he would obtain a CT scan. He has now reevaluated and thinks she is more stable now than she would be after he begins to warm her and therefore, will be imaging her belly and her head prior to taking her off cooling. I discussed with the 2 daughters as well as the that my opinions from yesterday that she is likely to either from a neurologic point of view sustain progressive swelling, herniation and brain or possibly survive but in a limited capacity neurologically, possibly comatose or in a vegetative state, the events over the past 24 hours if anything make her prognosis even worse than yesterday. We discussed that if she survives the warming and then the coming off the propofol, we would do further testing to assess her neurological status such as further EEGs, imaging, possibly if the concern is brain , nuclear med studies. I will be following through today and then transfer the neurological care to the on-call neurologist beginning tomorrow morning. Thank you for sharing her case. [id number]/[facility] #: [id number] MARCIE
[2019-02-09] MEDS ORDERED: KCL 20 MEQ/100 ML IVPREMIX* 20 MEQ/100 ML BAG IV ONE (23:00)
[2019-02-10] MEDS: Phenylephrine 10 MG/ML VIAL* 50 MG in NS 0.9% 250 ML* 245 ML IV SCH ×2 (01:23→07:36)
[2019-02-10] MEDS: Sodium Bicarbonate 8.4% IV* 150 MEQ in D5W 1000 ML BAG* 850 ML IV SCH (02:05)
[2019-02-10 02:30] LABS: EGFR African American 34.8 (>60); EGFR Non-African American 28.8 (>60); Magnesium 2.4 mg/dL (1.9-2.7); Phosphorus 8.2 mg/dL (2.5-5.0); Potassium 4.2 mmol/L (3.5-5.0)
[2019-02-10] MEDS ORDERED: fentaNYL* 50 MCG/ML 2 ML VIAL (100 MCG VIAL) ONE (03:03)
[2019-02-10] MEDS: levETIRAcetam 500 MG IVPREMIX* 500 MG/100 ML BAG IV SCH ×2 (03:25→15:59)
[2019-02-10] MEDS: Chlorhexidine MOUTHWASH 0.12%* 15 ML UDC TOPICAL SCH ×6 (03:25→23:29)
[2019-02-10 04:28] LABS: Hematocrit 25 % (33-41); Hemoglobin 8.6 g/dL (12.0-16.0); Mean Corpuscular HGB Conc 35 g/dL (31-36); Mean Corpuscular Hemoglobin 28 pg (27-31); Mean Corpuscular Volume 80 fL (80-97); Mean Platelet Volume 9.7 fL (7.4-10.4); Platelet Count 49 10^3/uL (150-450); Red Blood Count 3.12 10^6 /uL (3.70-4.87); Red Cell Distribution Width 22 % (10.5-15); White Blood Count 7.4 10^3/uL (3.5-10.8)
[2019-02-10 04:33] LABS: Fibrinogen 277.1 mg/dL (110.8-404.3); INR 2.28 (0.77-1.02)
[2019-02-10] MEDS: Piperacillin/Tazobac ADVAN(*) 3.375 GM in NS 0.9% 100 ML* 100 ML IVPB SCH ×3 (04:50→19:33)
[2019-02-10 06:16] LABS: Albumin 2.2 g/dL (3.2-5.2); Albumin/Globulin Ratio 1.4 (1-3); Alkaline Phosphatase 104 U/L (34-104); BUN/Creatinine Ratio 24.4 (8-20); Blood Urea Nitrogen 48 mg/dL (6-24); CO2 Carbon Dioxide 20 mmol/L (22-32); Calcium 6.8 mg/dL (8.6-10.3); Chloride 110 mmol/L (101-111); EGFR Non-African American 26.4 (>60); Globulin 1.6 g/dL (2-4); Glucose 164 mg/dL (70-100); Indirect Bilirubin 0.8 mg/dL (0.3-1.0); Magnesium 2.4 mg/dL (1.9-2.7); Phosphorus 8.1 mg/dL (2.5-5.0); Potassium 4.3 mmol/L (3.5-5.0); Total Protein 3.8 g/dL (6.4-8.9)
[2019-02-10 06:18] LABS: Anion Gap 18 mmol/L (2-11); Sodium 148 mmol/L (135-145)
[2019-02-10 06:23] LABS: Troponin I 1.01 ng/mL (<0.04)
[2019-02-10 06:52] LABS: ALT > 4500 U/L (7-52)
[2019-02-10 07:34] LABS: AST > 10000 U/L (13-39)
[2019-02-10] MEDS: Vasopressin* 100 UNITS in D5W 250 ML BAG* 245 ML IVPB SCH (07:36)
[2019-02-10] MEDS: KCL 20 MEQ/100 ML IVPREMIX* 20 MEQ/100 ML BAG IV SCH (07:42)
[2019-02-10] MEDS: Insulin LISPRO* 1 UNITS UNIT SUBCUT SCH (07:43)
[2019-02-10] MEDS: Patiromer POWDER* 8.4 GM PAK PO SCH (08:23)
[2019-02-10] MEDS: Oseltamivir SUSP* ORALSYR 6 MG/ML PO SCH ×3 (08:25→19:38)
[2019-02-10] MEDS ORDERED: Sodium Bicarbonate 8.4% IV* 150 MEQ in D5W 1000 ML BAG* 850 ML IV SCH (11:28)
[2019-02-10 11:29] LABS: Hematocrit 26 % (33-41); Mean Corpuscular HGB Conc 35 g/dL (31-36); Mean Corpuscular Hemoglobin 28 pg (27-31); Mean Corpuscular Volume 80 fL (80-97); Mean Platelet Volume 9.7 fL (7.4-10.4); Platelet Count 51 10^3/uL (150-450); Red Blood Count 3.23 10^6 /uL (3.70-4.87); Red Cell Distribution Width 22 % (10.5-15)
[2019-02-10 11:51] LABS: Albumin 2.4 g/dL (3.2-5.2); Albumin/Globulin Ratio 1.3 (1-3); Alkaline Phosphatase 129 U/L (34-104); Anion Gap 18 mmol/L (2-11); BUN/Creatinine Ratio 21.8 (8-20); Blood Urea Nitrogen 52 mg/dL (6-24); CO2 Carbon Dioxide 21 mmol/L (22-32); Calcium 6.8 mg/dL (8.6-10.3); Chloride 110 mmol/L (101-111); EGFR African American 25.7 (>60); EGFR Non-African American 21.2 (>60); Globulin 1.8 g/dL (2-4); Glucose 178 mg/dL (70-100); Potassium 4.1 mmol/L (3.5-5.0); Sodium 149 mmol/L (135-145); Total Protein 4.2 g/dL (6.4-8.9)
--- NOTE | 2019-02-10 11:53 | PN ---
Progress Note - Progress Note Date of Service: 02/10/19 Note: Progress Note -- Critical Care 24 hour events -remains intubated -completed rewarming phase; now euthermic; pads on to maintain -off all vasopressors -off versed since yesterday afternoon; off propofol since yesterday evening -breathing over the vent; has not awoken yet Tele: NSR Vitals: Vital Signs Temp 97.9 F 02/10/19 11:00 Pulse 107 02/10/19 11:00 Resp 25 02/10/19 09:00 BP 139/72 02/10/19 11:00 Pulse Ox 95 02/10/19 11:00 Intake & Output 02/09/19 02/10/19 02/10/19 18:59 06:59 18:59 Intake Total 3304.7 2535.0 Output Total 550 230 42 Balance 2754.7 2305.0 -42 Weight 68.8 kg Intake: IV Fluids 2069.7 2400.0 Keppra 205 Levophed 692 194.5 Neosynephrine 96.7 0 Normal Saline 278 613 Propofol 102 71.5 Sodium Bicarb 792 1049 calcium gluc 88 zosyn 109 179 Tube Feeding Flush Amount 90 Packed Cells 886 Fresh Frozen Plasma 349 NG Tube Irrigate Amount 45 Output: Urine 80 Ramey 470 230 42 Other: Date of Last Bowel 02/09/19 Movement # Bowel Movements 2 Estimated Stool Amount Small O2/Vent: SIMV - > AC 16/450/+10/70% Infusions: D%W + 150meq bicarb @ 75cc/hr Current Medications: Acetaminophen (Tylenol Supp*) 650 mg UT Q6H PRN PRN Reason: FEVER Albuterol (Ventolin 2.5 Mg/3 Ml Neb.Natalie*) 2.5 mg INH [id number] AWAKE PRN PRN Reason: sob/wheezing Carboxymethylcellulose/Glycerin (Refresh Optive Gel Eye Gel) 1 applic BOTH EYES Q4H PRN PRN Reason: DRY EYE Last Admin: 02/09/19 12:51 Dose: 1 applic Chlorhexidine Gluconate (Peridex Mouth Wash 0.12%*) 15 ml TOPICAL Q4H CÉSAR Last Admin: 02/10/19 05:36 Dose: 15 ml Dextrose (D50w Syringe 50 Ml*) 12.5 gm IV PUSH .FOR FS < 60 - SS PRN PRN Reason: FS < 60 Last Admin: 02/09/19 13:35 Dose: 12.5 gm Fentanyl Citrate (Fentanyl*) 25 mcg IV Q1H PRN PRN Reason: .RESPIRATORY DISTRESS Propofol (Diprivan*) 100 mls @ 1.497 mls/hr IV .(Initial Rate) [facility]; Protocol Last Admin: 02/09/19 12:26 Dose: 12 mls/hr Norepinephrine Bitartrate (Levophed 16 Mcg/Ml Premix Bag*) 4,000 mcg in 250 mls @ 30 mls/hr IV .INITIAL RATE [facility] Last Admin: 02/09/19 16:55 Dose: 26.3 mls/hr Piperacillin Sod/Tazobactam (Sod 3.375 gm/ Sodium Chloride) 100 mls @ 25 mls/ hr IVPB Q8H [facility] Last Admin: 02/10/19 04:50 Dose: 25 mls/hr Vasopressin 100 units/ (Dextrose) 250 mls @ 12 mls/hr IVPB Q20H [facility]; Protocol Last Admin: 02/10/19 07:36 Dose: Not Given Phenylephrine HCl 50 mg/ (Sodium Chloride) 250 mls @ 30 mls/hr IV Q8H [facility]; Protocol Last Admin: 02/10/19 07:36 Dose: Not Given Sodium Bicarbonate 150 meq/ (Dextrose) 1,000 mls @ 75 mls/hr IV Q13H [facility] Last Admin: 02/10/19 02:05 Dose: 75 mls/hr Levetiracetam (Keppra Iv Premix*) 500 mg in 100 mls @ 400 mls/hr IV Q12H [facility] Last Admin: 02/10/19 03:25 Dose: 400 mls/hr Lactulose (Lactulose*) 30 ml FEED TUBE Q12H [facility] Last Admin: 02/10/19 05:36 Dose: 30 ml Oseltamivir Phosphate (Tamiflu Susp* Oralsyr) 30 mg PO BID [facility] Stop: 02/15/19 07:59 Last Admin: 02/10/19 10:27 Dose: Not Given Pantoprazole Sodium (Protonix Iv*) 40 mg IV Q12H [facility] Last Admin: 02/09/19 23:38 Dose: 40 mg Physical Exam: Constitutional: intubated, off sedation, no distress, no diaphoresis Head: normocephalic, atraumatic Eyes: no pallor, no icterus ENT: moist mucous membranes Neck: soft, supple, no jvd CVS: normal rate, regular, no murmur Resp: bilateral air entry, mild right sided rhales+, no wheeze, no rhonchi, no acc muscle use; CT+ on left anterior wall Abdomen/GI: soft, ++tense, nondistended, BS diminished Ext/Msk: cool, pulses+, mild edema+ in all ext Skin: intact, cool; vitiligo+ Neuro: not sedation; not awake/responsive; pupils bilaterally 2mm and reactive; no cough/gag, no corneal reflex; spontaneous breathing on CPAP mode Labs: REVIEWED Imaging: CT brain 02/07 - no focal findings CXR 02/07 - bilateral infiltrates consistent with possible pulm edema; next CXR with left PTX; next CXR with left cathetor, improved PTX, still mild bilateral infiltrates TTE 02/07 - lvef 40-50%, infero and mild pratibha hypokinesis cxr 02/09 - ett above mini, more consistent RML/RLL consolidation++ ct abd/pelvis 02/09 reviewed; no acute process noted ct chest 02/09 - bilateral consolidations+, CT+, subcut emph+; small apical ptx on left ct brain 02/09 - no cerebral edema noted cxr 02/10 - bilateral infiltrates+; stable/improved slightly on right; CT on left+ , no ptx noted Assessment: 54y F w/pmhx of diet controlled DM, Vitiligo, past h/o mild-mod AI; 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 CPR started at work. EMS arrived, found PEA rhythm, gave 20min of CPR. En route to ED, shockable rhythm noted and defibrillated. In ER, PEA arrest, CPR continued with ROSC in ~5min ?, total Downtime estimated to be 30-40min suspected. Already intubated in field I suspect. In ER, noted to have pulmonary edema on CXR. EKG with inferior and anterolateral ST depressions. Cardiology consulted but deemed to likely have some degree of global ischemia from cardiac arrest. Overnight TTE performed and demonstrated anterior and inferior wall hypokinesis with mild LV systolic dysfunction. 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 She was started on Therapeutic hypothermia tx, IV heparin for possible ACS. Overnight noted to have some posturing, so neurology was consulted. 02/08 - VFib x2 likely from torsades and electrolyte disturbances; elevated PTTs from IV heparin; remains cooling. 02/09 - drop in h/h to 4.1, transfusing, d/c IV heparin; plan to start rewarming phase; noted Influenza A+ swab 02/10 - rewarmed overnight; neuro workup with EEG -VT/VF/PEA Cardiac Arrest -Therapeutic Hypothermia 02/07 -Acute Hypoxic Respiratory Failure/ARDS -Pulmonary Edema -Shock, multifactorial/unspecified -Right ML/LL pneumonia > Left side, suspect aspiration pneumonia -Haemophilus influenza bacteremia -Influenza A infection+ -Iatrogenic Left PTX 02/07; s/p left Left PTX -Shock liver -VT/VF -Rhabdomyolysis -Upper GI bleed, suspected gastritis -acute blood loss anemia -thrombocytopenia -prolonged qTC -VT 2/2 torsades de pointes 2/2 to hypokalemia/hypomag and hypocalcemia -hypoglycemia -Encephalopathy -coagulopathy of liver disease/dysfunction Plan: Neuro- -off sedation now; has not awoken but sedatives stopped <24 hours now, which included BDZ -elevated Ammonia to 374; WILNER -repeat CT brain 02/09 with no sig cerebral edema noted -rewarmed now to euthermia -EEG planned for spot check on brain function -at this point, she is rewarmed but will have to given time, correct underlying acidosis, prevent fevers, start to correct Na level as well as attempts to correct ammonia level before any prognostication if given -she has some brain stem reflexes indicated by pupillary reflexes and breathing over the vent but she has diminished other reflexes; at this time may be severe hypoxic-ischemic encephalopathy; but watchful waiting in coming days, this was expressed to family at bedside ministered -neuro consult reviewed -maintain off sedation for now -asp prec CVS- -s/p cardiac arrest, Vt/VT; repeat eepisode 4/6 AM and PM -NO further VT noted; electrolytes being monitored and corrected as needed -Off pressors now; BP 140-160s; start cardene to goal of 120-150 -tele monitoring for further VT/Torsades -suspect septic shock component earlier; but now off pressors -TTE 02/09 - normal LV function now; no valvular abn -Last EKG 02/09 imrpoved qtc to 505; check repeat EKG today -maintain MAP>65, SBP>90 -maintain adequate urine output -dec d5w + 150meq biarb to 50cc/hr -no further IV heparin or ASA -hg stable 8-9s; no further bleeding noted -LA improving -followup with cardiology; discussed current plan and findings Resp- -Intubated SIMV - changed to AC 16/450/+10/70% -no wheezing; mild rhales -chest subcut emphysema seems better today than yesterday -cont Low wall cont suction for now -ABG with compensated metabolic acidosis; resp alkalosis -CXr 02/10 with similar infiltrates; no ptx on left noted -cont peep of 10 -repeat ABG later today -no plan for weaning -mild secretions; gram neg in sputum -IV abx and antivirals -VAP bundle -Bronchodilators PRN, asp prec ID- hypothermia imcompleted; on pads to maintain -WBC 13 now -Blood cx Haemophilus Influenza+ growth -Influenza A+ swab yesterday -Sputum culture gram neg++ -CXR 02/10 with stable/improved bilateral infiltrates -Cont IV zosyn (day#3); cont tamiflu (day#2) -Likley to have had influenza infection prior to arrest given URI symptoms; unclear if was progressive to pneumoia; but clinical picture now may be pneumonia from prior vs aspiration pneumonia from cardiac arrest also GI- minimal coffee ground from NGT; cont PPI IV BID -hg stable -abd still tense; ct abd/pelvis 02/09 reviewed; no acute process noted -unsure if cleared of true ischemic bowel -noted rhabo, LA still elevated but less -shock liver+; mild coagulopathy+ -trend LFTs -NPO today Renal- --WILNER; Cr elevated; oliguric at times -K 4.1; metabolic acidosis+ -on d5w + 150meq bicarb 75cc/hr; dec to 50cc/hr -close monitoring; if any more acidosis or anuria, may have to consider renal involvement for HD if feasible given her overall condition -Mg level okay -Metabolic aicdosis from LA production; ?GI source ?global ischemia -trial lasix 60mg IV x1 today to augment output -ramey+ Heme- hg 11->8.5->4.1->8-9 -hg holding for now; no further bleeding -thrombocytopenia; plt 50-60s -off IV heparin/asa -INR 2.2; check later; give Vit K 5mg IV x1; if bleeding will given FFP -DVT proph mech Endo- -hypoglycemia better; multifactorial from sepsis, shock, MODS -dec d5 infusion to 50cc/hr Musculsk- pressure ulcer prophylaxis. Bedrest. Wounds- none Nutrition- NPO DVT prophylaxis: SCD GI prophylaxis: PPI Central Line: RIJ 02/07 Arterial Line: Right fem 6 Ramey Cathetor: yes Disposition: Patient requires Critical Care/ICU for hypothermia protocol, cardiac arrest, shock, hypoxic respiratory failure, VT/VF, acute blood loss anemia Patient Clinical Status: unstable, critical Code Status: full code Total Critical Care time is 60 minutes, excluding procedures/teaching Dorian Cruz MD Band Sawmill Operator (Electronically Signed)
[2019-02-10] MEDS ORDERED: Phytonadione IV (Adult)* 10 MG/ML 1 ML AMP IV ONE (12:08)
[2019-02-10] MEDS ORDERED: Furosemide IV* 10 MG/ML 10 ML VIAL (100 MG) IV ONE (12:08)
[2019-02-10 12:09] LABS: ALT > 4500 U/L (7-52); AST > 10000 U/L (13-39); Creatine Kinase 19327 U/L (10-223)
--- NOTE | 2019-02-10 12:20 | PN ---
NEUROLOGICAL FOLLOWUP NOTE: DATE OF SERVICE: 02/10/19. PATIENT OF: Dr. Cruz. HISTORY: This is a neurological followup on this 54-year-old woman, status post hypoxic ischemic insult. She was able to come off her pressors and her sedation yesterday without cardiac decompensation and from a cardiovascular point of view more stable than yesterday. PHYSICAL EXAMINATION: Temperature 97.9, pulse 107, respirations 35. She has been breathing over the vent. Blood pressure 152/68. She has had no gag or cough to suction, but she is breathing spontaneously. At times, she has sluggish corneal. Her pupils are small and minimally reactive. She has no cough to gag or suction per nurse. Chest: Clear. Cardiovascular: Regular rate and rhythm. She is edematous. DIAGNOSTIC STUDIES/LAB DATA: I reviewed her CT scan, which to my eye shows posteriorly some sulci effacement, but sylvian fissure still seen and over the vertex sulci well seen. She has white count of 7.4, hematocrit of 25, platelet count 49,000. INR 2.28. Fibrinogen 277. Blood gas 728, pCO2 of 26, pO2 of 70. Chemistries showed sodium of 148, bicarb of 20, creatinine 1.97. Ammonia 372. ASSESSMENT AND PLAN: I discussed with the family in detail and also Dr. Cruz that she continues to have multisystem injury, most likely from her severe hypoxic ischemic insult including renal problems and hepatic injury as well causing her ammonia. She is now on lactulose as well as albuterol, Keppra, Tamiflu, Protonix, piperacillin. I discussed with the family that in case this really is severe hypoxic ischemic encephalopathy, often the other systems such as heart or kidneys or liver may recover, but often the system that has the most longstanding damage is the brain. We are supporting her through this insult and we will see how her brain is functioning as her sedatives are wearing off. We will be getting an EEG today. She had a CAT scan yesterday. She is not brain at this point since she is breathing on her own and has some other cranial nerve findings. It is possible that she could develop further swelling and have a herniation syndrome , but we are taking one day at a time. Thank you for sharing her case. [id number]/[facility] #: [id number] MARCIE
[2019-02-10] MEDS: Pantoprazole IV* 40 MG IV SCH ×2 (12:41→23:29)
[2019-02-10] MEDS: niCARdipine 0.1MG/ML IVPREMIX* 20 MG/200 ML BAG IV SCH ×2 (13:00→22:51)
[2019-02-10] MEDS ORDERED: LORazepam INJ* 2 MG/ML 1 ML VIAL IV PUSH ONE (13:56)
[2019-02-10] MEDS ORDERED: Phytonadione IV (Adult)* 2.5 MG in NS 0.9% 50 ML* 50 ML IV ONE (15:00)
[2019-02-10] MEDS ORDERED: Metoprolol Tartrate IV* 1 MG/ML 5 ML VIAL IV PRN (15:06)
[2019-02-10] MEDS ORDERED: Metoprolol Tartrate IV* 1 MG/ML 5 ML VIAL ONE (15:07)
[2019-02-10 17:04] LABS: Albumin 2.3 g/dL (3.2-5.2); Albumin/Globulin Ratio 1.4 (1-3); Alkaline Phosphatase 140 U/L (34-104); BUN/Creatinine Ratio 21.1 (8-20); Blood Urea Nitrogen 56 mg/dL (6-24); CO2 Carbon Dioxide 22 mmol/L (22-32); Calcium 6.6 mg/dL (8.6-10.3); Chloride 110 mmol/L (101-111); EGFR African American 22.7 (>60); EGFR Non-African American 18.8 (>60); Globulin 1.7 g/dL (2-4); Glucose 185 mg/dL (70-100); Potassium 3.8 mmol/L (3.5-5.0)
[2019-02-10 17:05] LABS: Troponin I 0.92 ng/mL (<0.04)
[2019-02-10 17:06] LABS: Anion Gap 19 mmol/L (2-11); Sodium 151 mmol/L (135-145)
[2019-02-10 17:08] LABS: Hematocrit 24 % (33-41); Hemoglobin 8.3 g/dL (12.0-16.0); Mean Corpuscular HGB Conc 35 g/dL (31-36); Mean Corpuscular Hemoglobin 28 pg (27-31); Mean Corpuscular Volume 80 fL (80-97); Mean Platelet Volume 9.8 fL (7.4-10.4); Platelet Count 46 10^3/uL (150-450); Red Blood Count 2.97 10^6 /uL (3.70-4.87); Red Cell Distribution Width 22 % (10.5-15); White Blood Count 15.6 10^3/uL (3.5-10.8)
[2019-02-10 18:34] LABS: ALT > 4500 U/L (7-52); AST > 10000 U/L (13-39); Creatine Kinase 19263 U/L (10-223)
[2019-02-10] MEDS ORDERED: D5W 1000 ML BAG* 1,000 ML IV SCH (19:00)
[2019-02-10] MEDS ORDERED: KCL 20 MEQ/100 ML ONE (19:36)
[2019-02-10] MEDS ORDERED: IVPREMIX ONE (19:36)
[2019-02-10] MEDS: Carboxymethylcellulose/Glyceri 10 ML OPHTH.GEL lubricant eye gel BOTH EYES PRN (20:06)
--- NOTE | 2019-02-10 22:34 | EEG ---
ELECTROENCEPHALOGRAPHY: DATE OF STUDY: 02/08/19 - ROOM #ICU-06 DATE OF DICTATION: 02/10/19 PATIENT OF: Dr. Charlton. CLINICAL PROBLEM: This is a 54-year-old woman, status post cardiac arrest, now in coma. This study was done to assess for possible seizures. MEDICATIONS: Include: 1. Keppra. 2. Humalog. 3. Protonix. 4. Ventolin. 5. Atorvastatin. 6. Lorazepam. 7. Levophed. 8. Propofol. 9. Lasix. 10. Nitroglycerin. REPORT: No epileptiform potentials or focal abnormalities noted. Prominent motion artifact is noted as well as some fast 60 Hz artifact. There is some occasional activity in the delta range. It is unclear whether this is cerebrally generator or not. CLINICAL IMPRESSION: This EEG, with the patient on propofol and intubated, shows no signs of seizure activity. Background is extremely attenuated and this may be secondary to the underlying hypoxic ischemia or to medications the patient is consuming or some combination of both. [id number]/[facility] #: [id number] [facility] CENTERAlexx
--- NOTE | 2019-02-10 22:51 | EEG ---
ELECTROENCEPHALOGRAPHY: DATE OF STUDY: 02/10/19 - ROOM #ICU-06 DATE OF DICTATION: 02/10/19 PATIENT OF: Dr. Cruz. CLINICAL PROBLEM: This is 54-year-old woman status post cooling and status post a propofol drip. This study was done for assess for seizure activity and background. MEDICATIONS: Include: 1. Zofran. 2. Tamiflu. 3. Protonix 4. Keppra. 5. Phenylephrine 6. Fentanyl. REPORT: Background cerebral activity does not reveal any epileptiform potentials. Prominent muscle artifact noted throughout the tracing. Background is extremely attenuated, it is unclear whether the waveforms in the delta range are artifactual or cerebrally generated. CLINICAL IMPRESSION: EEG is abnormal consistent with a severe encephalopathy. Medications the patient has recently consumed can be contributing to some of this suppression of background. The hypoxic ischemic injury may also be contributing. There is no epileptiform potentials noted. [id number]/[facility] #: [id number] MTDD
[2019-02-11] MEDS: fentaNYL* 50 MCG/ML 2 ML VIAL (100 MCG VIAL) IV PRN ×4 (02:23→21:38)
[2019-02-11] MEDS: Chlorhexidine MOUTHWASH 0.12%* 15 ML UDC TOPICAL SCH ×5 (02:23→22:08)
[2019-02-11] MEDS: levETIRAcetam 500 MG IVPREMIX* 500 MG/100 ML BAG IV SCH ×2 (02:23→15:18)
[2019-02-11] MEDS: Piperacillin/Tazobac ADVAN(*) 3.375 GM in NS 0.9% 100 ML* 100 ML IVPB SCH (03:26)
[2019-02-11 04:34] LABS: Fibrinogen 421.3 mg/dL (110.8-404.3); INR 1.44 (0.77-1.02)
[2019-02-11 04:35] LABS: Hematocrit 23 % (33-41); Hemoglobin 7.8 g/dL (12.0-16.0); Mean Corpuscular HGB Conc 35 g/dL (31-36); Mean Corpuscular Hemoglobin 28 pg (27-31); Mean Corpuscular Volume 81 fL (80-97); Mean Platelet Volume 10.1 fL (7.4-10.4); Platelet Count 51 10^3/uL (150-450); Red Cell Distribution Width 21 % (10.5-15)
[2019-02-11 04:45] LABS: Magnesium 2.5 mg/dL (1.9-2.7); Phosphorus 6.6 mg/dL (2.5-5.0)
[2019-02-11 05:01] LABS: Creatine Kinase > 18000 U/L (10-223)
[2019-02-11 05:42] LABS: Blood Urea Nitrogen 70 mg/dL (6-24); CO2 Carbon Dioxide 23 mmol/L (22-32); Chloride 109 mmol/L (101-111); EGFR African American 17.4 (>60); EGFR Non-African American 14.4 (>60); Glucose 205 mg/dL (70-100); Potassium 3.8 mmol/L (3.5-5.0)
[2019-02-11 05:43] LABS: Anion Gap 17 mmol/L (2-11); Calcium 6.4 mg/dL (8.6-10.3); Sodium 149 mmol/L (135-145)
[2019-02-11] MEDS ORDERED: Calcium Gluconate INJ* 2 GM in NS 0.9% 100 ML* 100 ML IV ONE (06:16)
[2019-02-11] MEDS: niCARdipine 0.1MG/ML IVPREMIX* 20 MG/200 ML BAG IV SCH ×5 (07:56→21:41)
[2019-02-11] MEDS: Oseltamivir SUSP* ORALSYR 6 MG/ML PO SCH (09:24)
[2019-02-11] MEDS ORDERED: Vancomycin(*) 1,000 MG in NS 0.9% 250 ML* 250 ML IVPB ONE (10:57)
[2019-02-11] MEDS: Pantoprazole IV* 40 MG IV SCH (11:11)
[2019-02-11] MEDS ORDERED: Dextrose 50% Syringe 50 ML* 25 GM/50 ML SYRINGE IV PUSH PRN (11:14)
--- NOTE | 2019-02-11 11:17 | PN ---
Progress Note - Progress Note Date of Service: 02/11/19 Note: Progress Note -- Critical Care 24 hour events -remains intubated -afebrile -off pressors; on and off nicardipine infusion -no sedatives; given fentanyl x1 yesterday for tachypnea -breathing over the vent; has not awoken yet -? seizure activity yesterday; given ativan 2mg IV x1; none further noted; had twitching in face and some rhythmic movmeents in legs -bowel movements after lactuolos; no blood noted; water stool now Tele: sinus tachy Vitals: Vital Signs Temp 98.4 F 02/11/19 08:15 Pulse 113 02/11/19 08:15 Resp 22 02/11/19 06:30 BP 128/74 02/11/19 08:10 Pulse Ox 96 02/11/19 08:15 Intake & Output 02/10/19 02/11/19 02/11/19 18:59 06:59 18:59 Intake Total 904 1521.5 Output Total 100 95 Balance 804 1426.5 Weight 67 kg Intake: IV Fluids 134 1321 D5W 476 Keppra 200 Levophed 4 0 Normal Saline 130 161 Sodium Bicarb 222 Vit k 50 zosyn 212 IVPB 734 Sodium Bicarb 548 zosyn 186 Medicated IV 36 80.5 Cardene 36 80.5 NG Tube Irrigate Amount 120 Output: Chest Tube #1 15 34 Ramey 85 61 Other: Date of Last Bowel 02/11/19 Movement # Bowel Movements 1 Estimated Stool Amount Large O2/Vent:AC 22/450/+10/60% Infusions: D5W @ 60cc/hr Current Medications: Acetaminophen (Tylenol Supp*) 650 mg IN Q6H PRN PRN Reason: FEVER Albuterol (Ventolin 2.5 Mg/3 Ml Neb.Natalie*) 2.5 mg INH [id number] AWAKE PRN PRN Reason: sob/wheezing Carboxymethylcellulose/Glycerin (Refresh Optive Gel Eye Gel) 1 applic BOTH EYES Q4H PRN PRN Reason: DRY EYE Last Admin: 02/10/19 20:06 Dose: 1 applic Chlorhexidine Gluconate (Peridex Mouth Wash 0.12%*) 15 ml TOPICAL Q4H CÉSAR Last Admin: 02/11/19 06:56 Dose: 15 ml Dextrose (D50w Syringe 50 Ml*) 12.5 gm IV PUSH .FOR FS < 60 - SS PRN PRN Reason: FS < 60 Last Admin: 02/09/19 13:35 Dose: 12.5 gm Fentanyl Citrate (Fentanyl*) 25 mcg IV Q1H PRN PRN Reason: .RESPIRATORY DISTRESS Last Admin: 02/11/19 06:30 Dose: 25 mcg Propofol (Diprivan*) 100 mls @ 1.497 mls/hr IV .(Initial Rate) [facility]; Protocol Last Admin: 02/09/19 12:26 Dose: 12 mls/hr Norepinephrine Bitartrate (Levophed 16 Mcg/Ml Premix Bag*) 4,000 mcg in 250 mls @ 30 mls/hr IV .INITIAL RATE [facility] Last Admin: 02/09/19 16:55 Dose: 26.3 mls/hr Levetiracetam (Keppra Iv Premix*) 500 mg in 100 mls @ 400 mls/hr IV Q12H CÉSAR Last Admin: 02/11/19 02:23 Dose: 400 mls/hr Nicardipine/Sodium Chloride (Cardene 0.1mg/Ml Ivpremix*) 20 mg in 200 mls @ 20 mls/hr IV Q10H [facility]; Protocol Last Admin: 02/11/19 09:25 Dose: 50 mls/hr Dextrose (D5w 1000 Ml Bag*) 1,000 mls @ 60 mls/hr IV PER RATE [facility] Last Admin: 02/10/19 19:36 Dose: 60 mls/hr Piperacillin Sod/Tazobactam (Sod 3.375 gm/ Sodium Chloride) 100 mls @ 25 mls/ hr IVPB 0300,1500 [facility] Lactulose (Lactulose*) 30 ml FEED TUBE Q8H [facility] Last Admin: 02/11/19 03:26 Dose: 30 ml Metoprolol Tartrate (Lopressor Iv*) 2.5 mg IV Q4H PRN PRN Reason: for HR >120 Last Admin: 02/11/19 01:00 Dose: 2.5 mg Oseltamivir Phosphate (Tamiflu Susp* Oralsyr) 30 mg PO BID [facility] Stop: 02/15/19 07:59 Last Admin: 02/11/19 09:24 Dose: 30 mg Pantoprazole Sodium (Protonix Iv*) 40 mg IV Q12H [facility] Last Admin: 02/10/19 23:29 Dose: 40 mg Physical Exam: Constitutional: intubated, not responsive, no distress, no diaphoresis Head: normocephalic, atraumatic Eyes: no pallor, no icterus ENT: moist mucous membranes Neck: soft, supple, no jvd CVS: normal rate, regular, no murmur Resp: bilateral air entry, minimal rhales on right now, no wheeze, no rhonchi, no acc muscle use; CT+ on left anterior wall; mild subcut emph noted still Abdomen/GI: soft, +tense, nondistended, BS diminished Ext/Msk: warm, pulses+, ++ edema in all ext Skin: intact; vitiligo+ Neuro: not responsive; responds to painful stimuli with flexion; pupils bilaterally 1-2mm and reactive sluggishly; no cough/gag, ++ bilateral corneal reflex; spontaneous breathing on CPAP mode Labs: REVIEWED Imaging: CT brain 02/07 - no focal findings CXR 02/07 - bilateral infiltrates consistent with possible pulm edema; next CXR with left PTX; next CXR with left cathetor, improved PTX, still mild bilateral infiltrates TTE 02/07 - lvef 40-50%, infero and mild pratibha hypokinesis cxr 02/09 - ett above mini, more consistent RML/RLL consolidation++ ct abd/pelvis 02/09 reviewed; no acute process noted ct chest 02/09 - bilateral consolidations+, CT+, subcut emph+; small apical ptx on left ct brain 02/09 - no cerebral edema noted cxr 02/10 - bilateral infiltrates+; stable/improved slightly on right; CT on left+ , no ptx noted CXR 02/11 - left CT+, no PTX Noted; right sided infiltrates+; not subcut emph bilaterally upper chest Assessment: 54y F w/pmhx of diet controlled DM, Vitiligo, past h/o mild-mod AI; 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 CPR started at work. EMS arrived, found PEA rhythm, gave 20min of CPR. En route to ED, shockable rhythm noted and defibrillated. In ER, PEA arrest, CPR continued with ROSC in ~5min ?, total Downtime estimated to be 30-40min suspected. Already intubated in field I suspect. In ER, noted to have pulmonary edema on CXR. EKG with inferior and anterolateral ST depressions. Cardiology consulted but deemed to likely have some degree of global ischemia from cardiac arrest. Overnight TTE performed and demonstrated anterior and inferior wall hypokinesis with mild LV systolic dysfunction. She was not taken to medical laboratory technical officer. She was started on Therapeutic hypothermia tx, IV heparin for possible ACS. Overnight noted to have some posturing, so neurology was consulted. 02/08 - VFib x2 likely from torsades and electrolyte disturbances; elevated PTTs from IV heparin; remains cooling. 02/09 - drop in h/h to 4.1, transfusing, d/c IV heparin; plan to start rewarming phase; noted Influenza A+ swab 02/10 - rewarmed overnight; neuro workup with EEG -VT/VF/PEA Cardiac Arrest -Therapeutic Hypothermia 02/07 -Acute Hypoxic Respiratory Failure/ARDS -Pulmonary Edema -Shock, multifactorial/unspecified, resolved -Right ML/LL pneumonia > Left side, suspect aspiration pneumonia with klebsiella and staph aureus+ -Haemophilus influenza bacteremia -Influenza A infection+ -Iatrogenic Left PTX 02/07; s/p left Left PTX -Shock liver -VT/VF -Rhabdomyolysis -Upper GI bleed, suspected gastritis -acute blood loss anemia -thrombocytopenia -prolonged qTC -VT 2/2 torsades de pointes 2/2 to hypokalemia/hypomag and hypocalcemia -hypoglycemia -hypoxic-ischemic Encephalopathy -coagulopathy of liver disease/dysfunction Plan: Neuro- -off sedation ; has not awoken but sedatives stopped 36 hours now, which included BDZ -elevated Ammonia to 374->161; WILNER -CT brain 02/09 with no sig cerebral edema noted -euthermic -EEG 02/10 with slow brain activity; repeat EEG later today -PRN ativan for seizures -she has some brain stem reflexes indicated by pupillary reflexes/corneal and breathing over the vent but she has diminished other reflexes; at this time may be severe hypoxic-ischemic encephalopathy as explained to daughters; but watchful waiting in coming days, this was expressed to family at bedside. Maybe some more improvement but she has evidence of multiorgan failure/dysfxn. -poor prognosis overall expected; currently likely has severe hypoxic/ischemic encephalopathy, not meeting criteria for brain testing -neuro consult reviewed -maintain off sedation for now -asp prec CVS- -s/p cardiac arrest, Vt/VT; repeat eepisode 4/6 AM and PM -NO further VT noted; electrolytes being monitored and corrected as needed -BP 140-160s; cardene to goal of 120-150 -tele monitoring for further VT/Torsades -suspect septic shock component earlier; but now off pressors -TTE 02/09 - normal LV function now; no valvular abn -Qtc normalized as of 02/10 -maintain MAP>65, SBP>90 -maintain adequate urine output -d5w at 80cc/hr for hypernatremia -overall fluid overload and edema++ -lasix did now work before -hg slow downtrend; 7s now; check in evening if further drop; no clear bleeding source noted now -off AC/ASA; may hae to reintroduce sq heparin if hg stable -LA elevated but not cleared completely given shock liver and WILNER Resp- -Intubated AC 16/450/+10/70% -no wheezing; mild rhales on right but improved -chest subcut emphysema stable/mild -cont Low wall cont suction; trial water seal and see if any change -ABG today -CXr 02/11 with similar infiltrates; no ptx on left noted -cont peep of 10; will start to decrease today -no plan for weaning -mild secretions; noted kleb and staph in sputum -IV abx and antivirals -VAP bundle -Bronchodilators PRN, asp prec ID- euthermic; aftebrile -WBC 13-19 -Blood cx Haemophilus Influenza+ growth -Influenza A+ swab yesterday -Sputum culture klebsiella+ and staph aureus+; pending sensitivity -CXR 02/11 with stable bilateral infiltrates -Cont IV zosyn (day#4); cont tamiflu (day#3); vanco IV 1gm x1 today -Likley to have had influenza infection prior to arrest given URI symptoms; unclear if was progressive to pneumoia; but clinical picture now may be pneumonia from prior vs aspiration pneumonia from cardiac arrest also GI- no output from NGT; mild bilious -strt nepro 10cc/hr and reassess -bowel movement with lactulose+ -ammonia improving; cont lactulose 30gm bid today -cont PPI IV daily -hg slow downtrend; monitoring; no clear bleeding source noted -abd still tense; ct abd/pelvis 02/09 reviewed; no acute process noted -shock liver+; mild coagulopathy+ -trend LFTs -asp prec Renal- -WILNER; Cr elevated; ANURIC now -no acidosis, K okay; anasarca+ -if next 24 hours still anuric, may have to consider HD trial but likely not a big prognosis changer, discuseed with family, will assess -Nephrology consult today -hypernatremia; Increase D5W to 80cc/hr -Mg level okay -LA persistent, likely poor clearance -ramey+ Heme- hg 11->8.5->4.1->8-9-7.8 -no clear bleeding source -check h/h 4pm -thrombocytopenia; plt 50-60s -off IV heparin/asa -INR 1.7, fibrinogen 400s; s/p vit K 2.5mg IV x1; suspect coagulopathy from liver shock -DVT proph mech Endo- -hypoglycemia better; multifactorial from sepsis, shock, MODS -D5W for hypernatremia -may need to start insulin later today Musculsk- pressure ulcer prophylaxis. Bedrest. Wounds- none Nutrition- TF nepro DVT prophylaxis: SCD GI prophylaxis: PPI Central Line: RIJ 02/07 Arterial Line: Right fem 02/08 Ramey Cathetor: yes Disposition: Patient requires Critical Care/ICU for hypoxic/ischemic encephalopathy, cardiac arrest, acute hypoxic respiratory failure, WILNER Patient Clinical Status: stable/guarded, critical Code Status: full code Total Critical Care time is 55 minutes, excluding procedures/teaching Dorian Cruz MD Storekeeper Helper (Electronically Signed)
[2019-02-11] MEDS ORDERED: Insulin LISPRO* 1 UNITS UNIT SUBCUT ONE (11:33)
[2019-02-11] MEDS: Insulin LISPRO* 1 UNITS UNIT SUBCUT SCH ×3 (11:55→22:23)
[2019-02-11] MEDS: D5W 1000 ML BAG* 1,000 ML IV SCH (13:35)
--- NOTE | 2019-02-11 14:05 | PN ---
NEUROLOGICAL FOLLOWUP NOTE: DATE OF VISIT: 02/11/19. PATIENT OF: Dr. Cruz. HISTORY: This is a 54-year-old woman status post severe hypoxic-ischemic insult from cardiopulmonary arrest. She is now off her propofol drip since this weekend and she has been on no sedatives other than fentanyl once yesterday for tachycardia. She continues to breathe over the vent, but has not opened eyes or moved extremities at all. There was some twitching in her face yesterday that was possibly a seizure and she got 2 mg of Ativan x1. She has had hyperammonemia associated with her liver failure from her hypoxic-ischemic disease and is on lactulose. She also has renal failure and if this persists, she will need dialysis. MEDICATIONS: Include: 1. Piperacillin. 2. Protonix. 3. Tamiflu. 4. Nicardipine drip. 5. Keppra 500 b.i.d. 6. The lactulose as mentioned. 7. Albuterol p.r.n. PHYSICAL EXAMINATION: Temperature 97.9, pulse 115, respirations 23, blood pressure 137/66. She is comatose without response to noxious pain. Corneals minimal. Her pupils are 1 mm and minimally reactive. She is breathing over the vent. There is no cough or gag when she is suctioned. Chest: Clear. Cardiovascular: Regular rate and rhythm. IMPRESSION AND PLAN: I had a prolonged discussion with first the and then both daughters about her prognosis in that she does not have brain , but is in a significant coma secondary to her hypoxic ischemia. As time goes by , it is less likely that medicines that we gave her, when she initially came in for sedation and to decrease the metabolism, are still in her system and it is unlikely that these are continuing to play a role in her significant encephalopathy. Dr. Cruz notes that if her renal failure persists until tomorrow, she will need dialysis, if family wants to pursue intervention discussed that with family. We will be getting an EEG tomorrow morning and an MRI scan later today and if her exam persists like this, it will become even more likely that she will have severe permanent neurological deficits and they would need to make a decision whether to have procedures to support her kidneys or other organs. I discussed that it is possible that her kidney failure or other system failure may resolve, but she may well be left with persistent severe neurological deficits and they need to discuss among themselves what she would want to happen in this case. They will be doing this and I will be meeting with them tomorrow for further discussion. Thank you for sharing her case. [id number]/[facility] #: [id number] MARCIE
[2019-02-11] MEDS ORDERED: Piperacillin/Tazobac ADVAN(*) 3.375 GM in NS 0.9% 100 ML* 100 ML IVPB SCH (15:00)
[2019-02-11] MEDS: cefTRIAXone(*) 1 GM in NS 0.9% 50 ML* 50 ML IVPB SCH (15:18)
[2019-02-11 15:37] LABS: Albumin 2.4 g/dL (3.2-5.2); Indirect Bilirubin 2.3 mg/dL (0.3-1.0)
[2019-02-11 15:43] LABS: Albumin/Globulin Ratio 1.3 (1-3); Alkaline Phosphatase 184 U/L (34-104); Globulin 1.9 g/dL (2-4); Total Protein 4.3 g/dL (6.4-8.9)
[2019-02-11 16:34] LABS: ALT 4713 U/L (7-52)
[2019-02-11 16:35] LABS: AST 10834 U/L (13-39)
[2019-02-11 16:39] LABS: Hematocrit 20 % (33-41)
[2019-02-11] MEDS: Carboxymethylcellulose/Glyceri 10 ML OPHTH.GEL lubricant eye gel BOTH EYES PRN (19:45)
[2019-02-12] MEDS: Chlorhexidine MOUTHWASH 0.12%* 15 ML UDC TOPICAL SCH ×6 (00:26→19:24)
[2019-02-12] MEDS: Insulin LISPRO* 1 UNITS UNIT SUBCUT SCH ×6 (00:26→20:27)
[2019-02-12 01:43] LABS: Urine Appearance Cloudy; Urine Bacteria Absent (Absent); Urine Bilirubin Negative (Negative); Urine Blood 3+ (Negative); Urine Color Amber; Urine Glucose 2+(150 mg/dL) (Negative); Urine Ketones Negative (Negative); Urine Nitrite Negative (Negative); Urine Protein 2+(100 mg/dL) (Negative); Urine Red Blood Cell 3+(>10/hpf) (Absent); Urine Specific Gravity 1.017 (1.010-1.030); Urine Squamous Epithelial Cell Present (Absent); Urine Urobilinogen Negative (Negative); Urine White Blood Cell 1+(6-10/hpf) (Absent)
[2019-02-12] MEDS: D5W 1000 ML BAG* 1,000 ML IV SCH (03:02)
[2019-02-12] MEDS: levETIRAcetam 500 MG IVPREMIX* 500 MG/100 ML BAG IV SCH ×2 (03:02→16:11)
[2019-02-12] MEDS: niCARdipine 0.1MG/ML IVPREMIX* 20 MG/200 ML BAG IV SCH ×5 (03:03→15:34)
[2019-02-12 04:56] LABS: Hematocrit 26 % (33-41); Hemoglobin 8.8 g/dL (12.0-16.0); Mean Corpuscular HGB Conc 34 g/dL (31-36); Mean Corpuscular Hemoglobin 28 pg (27-31); Mean Corpuscular Volume 82 fL (80-97); Mean Platelet Volume 8.6 fL (7.4-10.4); Platelet Count 43 10^3/uL (150-450); Red Blood Count 3.11 10^6 /uL (3.70-4.87); Red Cell Distribution Width 20 % (10.5-15); White Blood Count 19.2 10^3/uL (3.5-10.8)
[2019-02-12 04:57] LABS: INR 1.08 (0.77-1.02)
[2019-02-12] MEDS: fentaNYL* 50 MCG/ML 2 ML VIAL (100 MCG VIAL) IV PRN ×4 (04:59→21:28)
[2019-02-12] MEDS: Carboxymethylcellulose/Glyceri 10 ML OPHTH.GEL lubricant eye gel BOTH EYES PRN (05:00)
[2019-02-12 05:11] LABS: BUN/Creatinine Ratio 19.7 (8-20); EGFR African American 11.8 (>60); EGFR Non-African American 9.7 (>60); Magnesium 2.5 mg/dL (1.9-2.7); Phosphorus 5.6 mg/dL (2.5-5.0); Potassium 3.5 mmol/L (3.5-5.0)
[2019-02-12 05:12] LABS: Calcium 6.4 mg/dL (8.6-10.3)
[2019-02-12] MEDS ORDERED: Calcium Gluconate INJ* 2 GM in NS 0.9% 100 ML* 100 ML IV ONE ×2 (06:30→09:05)
[2019-02-12] MEDS ORDERED: Oseltamivir SUSP* ORALSYR 6 MG/ML PO SCH (09:00)
[2019-02-12] MEDS ORDERED: KCL 20 MEQ/100 ML IVPREMIX* 20 MEQ/100 ML BAG IV ONE (09:07)
[2019-02-12] MEDS: Pantoprazole IV* 40 MG IV SCH (09:19)
[2019-02-12] MEDS ORDERED: Vancomycin per Pharmacy* NOTE FOLLOW UP SCH (10:00)
[2019-02-12] MEDS ORDERED: Lidocaine 1% INJ* 10 MG/ML 30 ML SDV ONE (11:54)
[2019-02-12 12:01] LABS: Vancomycin Trough 21.5 mcg/mL
--- NOTE | 2019-02-12 12:31 | PN ---
Progress Note - Progress Note Date of Service: 02/12/19 Note: Central Line Procedure Note Indication: Hemodialysis venous access Diagnosis: Cardiac arrest, Hypoxic-ischemic encephalopathy, WILNER Performed by: Dorian Cruz MD Consent: Informed ; placed in bedside chart Risks of procedure were explained if possible, all risks of pain/discomfort, bleeding, infection, PTX, Hemotx, need for chest tube, air/wire embolism, vessel injury, , and failed procedure disclosed and understanding verbalized [place] Protocol: Time-out was performed and the correct patient and site were verified - Prior labs/history was reviewed prior to procedure - Full sterile precautions with chlorhexidine/full drapes/gowns/gloves utilized - Left Femoral Vein visualized with ultrasound - Vessel accessed under ultrasound guidance with return of nonpulsatile blood. A guidewire was passed into vessel and confirmed in vessel with ultrasound. 1 attempt was made to access vessel. Vessel was dilated and cathetor was passed over wire into vessel. All ports demonstrated good blood return and flushed. Catheter was sutured to site and dressing applied. Adequate hemostasis was achieved EBL <5 cc No immediate complications noted, patient tolerated procedure well. Post Procedure CXR: not required Line okay for immediate use Dorian Cruz MD Sugar Cane Farm Manager (Electronically Signed)
--- NOTE | 2019-02-12 12:47 | PN ---
Progress Note - Progress Note Date of Service: 02/12/19 Note: Progress Note -- Critical Care 24 hour events -remains intubated -on cardene -on d5w -no sig events; some increased Resp distress today -tmax 99.9 today -no seizure activity -loose stools noted; on lactulose -s/p 1 prbc 02/11 Tele: sinus tachy Vitals: Vital Signs Temp 99.3 F 02/12/19 12:01 Pulse 118 02/12/19 12:01 Resp 32 02/12/19 11:16 BP 133/71 02/12/19 12:00 Pulse Ox 98 02/12/19 12:01 Intake & Output 02/11/19 02/12/19 02/12/19 18:59 06:59 18:59 Intake Total 1368 1872 0 Output Total 19 1567 10 Balance 1349 305 -10 Weight 69.4 kg Intake: IV Fluids 615 1223 D5W 495 1022 Keppra 100 Normal Saline 120 101 zosyn 0 IVPB 445 Keppra 107 zosyn 338 Medicated IV 308 377 Cardene 308 377 Oral 0 Tube Feeding 152 Tube Feeding Flush Amount 120 Output: Chest Tube #1 34 Ramey 19 33 10 Liquid Stool 1500 Other: Date of Last Bowel 02/11/19 Movement O2/Vent:AC 24/450/+10/60% Infusions: D5W @ 60cc/hr; cardene Current Medications: Acetaminophen (Tylenol Supp*) 650 mg SD Q6H PRN PRN Reason: FEVER Albuterol (Ventolin 2.5 Mg/3 Ml Neb.Natalie*) 2.5 mg INH [id number] AWAKE PRN PRN Reason: sob/wheezing Carboxymethylcellulose/Glycerin (Refresh Optive Gel Eye Gel) 1 applic BOTH EYES Q4H PRN PRN Reason: DRY EYE Last Admin: 02/12/19 05:00 Dose: 1 applic Chlorhexidine Gluconate (Peridex Mouth Wash 0.12%*) 15 ml TOPICAL Q4H CÉSAR Last Admin: 02/12/19 11:16 Dose: 15 ml Dextrose (D50w Syringe 50 Ml*) 12.5 gm IV PUSH .FOR FS < 60 - SS PRN PRN Reason: FS < 60 Last Admin: 02/09/19 13:35 Dose: 12.5 gm Fentanyl Citrate (Fentanyl*) 25 mcg IV Q1H PRN PRN Reason: .RESPIRATORY DISTRESS Last Admin: 02/12/19 11:16 Dose: 25 mcg Propofol (Diprivan*) 100 mls @ 1.497 mls/hr IV .(Initial Rate) [facility]; Protocol Last Admin: 02/09/19 12:26 Dose: 12 mls/hr Norepinephrine Bitartrate (Levophed 16 Mcg/Ml Premix Bag*) 4,000 mcg in 250 mls @ 30 mls/hr IV .INITIAL RATE CÉSAR Last Admin: 02/09/19 16:55 Dose: 26.3 mls/hr Levetiracetam (Keppra Iv Premix*) 500 mg in 100 mls @ 400 mls/hr IV Q12H [facility] Last Admin: 02/12/19 03:02 Dose: 400 mls/hr Nicardipine/Sodium Chloride (Cardene 0.1mg/Ml Ivpremix*) 20 mg in 200 mls @ 20 mls/hr IV Q10H [facility]; Protocol Last Admin: 02/12/19 11:31 Dose: 50 mls/hr Ceftriaxone Sodium 1 gm/ (Sodium Chloride) 50 mls @ 200 mls/hr IVPB Q24H [facility] Last Admin: 02/11/19 15:18 Dose: 200 mls/hr Insulin Human Lispro (Humalog*) 0 units SUBCUT FS Q4 ICU [facility]; Protocol Last Admin: 02/12/19 09:19 Dose: 2 unit Lactulose (Lactulose*) 30 ml FEED TUBE Q8H [facility] Last Admin: 02/12/19 11:16 Dose: 30 ml Metoprolol Tartrate (Lopressor Iv*) 2.5 mg IV Q4H PRN PRN Reason: for HR >120 Last Admin: 02/11/19 01:00 Dose: 2.5 mg Oseltamivir Phosphate (Tamiflu Susp* Oralsyr) 30 mg PO DAILY [facility] Stop: 02/13/19 08:01 Last Admin: 02/12/19 09:22 Dose: 30 mg Pantoprazole Sodium (Protonix Iv*) 40 mg IV DAILY [facility] Last Admin: 02/12/19 09:19 Dose: 40 mg Pharmacy Consult (Vancomycin Per Pharmacy*) 1 note FOLLOW UP .VANC PER PHARMACY [facility] Physical Exam: Constitutional: intubated, not responsive, mild tachypnea+, no diaphoresis Head: normocephalic, atraumatic Eyes: no pallor, no icterus ENT: moist mucous membranes Neck: soft, supple, no jvd CVS: normal rate, regular, no murmur Resp: bilateral air entry, minimal rhales on right now, no wheeze, no rhonchi, no acc muscle use; CT+ on left anterior wall; mild subcut emph noted still Abdomen/GI: soft, +tense, nondistended, BS diminished Ext/Msk: warm, pulses+, Anasarca+ Skin: intact; vitiligo+ Neuro: not responsive; responds to painful stimuli with flexion; pupils bilaterally 1-2mm and reactive sluggishly; corneal reactivity+ b/l, cough+ today , gag minimal/none, spontaneous breathing on CPAP mode Labs: REVIEWED Imaging: CT brain 02/07 - no focal findings CXR 02/07 - bilateral infiltrates consistent with possible pulm edema; next CXR with left PTX; next CXR with left cathetor, improved PTX, still mild bilateral infiltrates TTE 02/07 - lvef 40-50%, infero and mild pratibha hypokinesis cxr 02/09 - ett above mini, more consistent RML/RLL consolidation++ ct abd/pelvis 02/09 reviewed; no acute process noted ct chest 02/09 - bilateral consolidations+, CT+, subcut emph+; small apical ptx on left ct brain 02/09 - no cerebral edema noted cxr 02/10 - bilateral infiltrates+; stable/improved slightly on right; CT on left+ , no ptx noted CXR 02/11 - left CT+, no PTX Noted; right sided infiltrates+; not subcut emph bilaterally upper chest cxr 02/12 - bilateral infiltrates+; CT in palce, no change in PTX, none noted Assessment: 54y F w/pmhx of diet controlled DM, Vitiligo, past h/o mild-mod AI; 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 CPR started at work. EMS arrived, found PEA rhythm, gave 20min of CPR. En route to ED, shockable rhythm noted and defibrillated. In ER, PEA arrest, CPR continued with ROSC in ~5min ?, total Downtime estimated to be 30-40min suspected. Already intubated in field I suspect. In ER, noted to have pulmonary edema on CXR. EKG with inferior and anterolateral ST depressions. Cardiology consulted but deemed to likely have some degree of global ischemia from cardiac arrest. Overnight TTE performed and demonstrated anterior and inferior wall hypokinesis with mild LV systolic dysfunction. 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 She was started on Therapeutic hypothermia tx, IV heparin for possible ACS. Overnight noted to have some posturing, so neurology was consulted. 02/08 - VFib x2 likely from torsades and electrolyte disturbances; elevated PTTs from IV heparin; remains cooling. 02/09 - drop in h/h to 4.1, transfusing, d/c IV heparin; plan to start rewarming phase; noted Influenza A+ swab 02/10 - rewarmed overnight; neuro workup with EEG 02/11 - no new events 02/12 - HD cathetor placed, HD planned today -VT/VF/PEA Cardiac Arrest -Therapeutic Hypothermia 02/07 -Acute Hypoxic Respiratory Failure/ARDS -Pulmonary Edema -Shock, multifactorial/unspecified, resolved -Right ML/LL pneumonia > Left side, aspiration pneumonia with klebsiella and staph aureus+ -Haemophilus influenza bacteremia -Influenza A infection+ -Iatrogenic Left PTX 02/07; s/p left Left PTX -Shock liver -VT/VF -Rhabdomyolysis -Upper GI bleed, suspected gastritis -acute blood loss anemia -thrombocytopenia -prolonged qTC -VT 2/2 torsades de pointes 2/2 to hypokalemia/hypomag and hypocalcemia -hypoglycemia -hypoxic-ischemic Encephalopathy -coagulopathy of liver disease/dysfunction -WILNER, anuric Plan: Neuro- -off sedation ; has not awoken but sedatives stopped >48 hours -CT brain 02/09 with no sig cerebral edema noted -EEG 02/10 with slow brain activity; repeat EEG 02/12 similar findings -MRI brain 02/11 with bilateral cerebellar small infarcts, no hemorrhage/edema -PRN ativan for seizures; none further noted -cont keppra 500mg IV q12h for seizure proph -ammonia improved to 80 02/12; d/c lactulose tomorrow if ammonia normal -does not meet criteria for brain ; has pupillar/corneal/cough reflexes and spontaneous breathign over vent -discussiion with family, likely severe anoxic injury; some small infarcts but likely not contributing to this encephalopathy -family would like to try HD in attempt to see if residual sedation/toxins/ uremia may be a factor; discussion about trial of HD 2-3 sessiosn would be done and re-eval neuro status after that; they have agreed -poor prognosis overall expected; currently likely has severe hypoxic/ischemic encephalopathy, not meeting criteria for brain testing -neuro consult reviewed -maintain off sedation for now -asp prec CVS- -s/p cardiac arrest, Vt/VT; repeat eepisode 4/6 AM and PM -No further VT noted; electrolytes being monitored and corrected as needed -BP 140-160s; cardene to goal of 120-150 -tele monitoring for further VT/Torsades -off pressors ; on cardene for BP control -TTE 02/09 - normal LV function now; no valvular abn -Qtc normalized as of 02/10 -maintain MAP>65, SBP>90 -maintain adequate urine output -d/c d5w today -overall fluid overload and edema++ -hg - now; s/p prbc x1 02/11; no clear bleeding noted -off AC/ASA; may hae to reintroduce sq heparin if hg stable -LA elevated/not cleared completely Resp- -Intubated AC 24/450/+10/60% -CXR 02/12 with bialteral infiltrates; possible increased congestion? -dec RR to 18, dec TV 400; titrate fio2, maintain peep for bialteral pneumonias -no wheezing -chest subcut emphysema resolved -cont water seal CT for now -no plan for weaning -mild secretions; noted kleb and staph in sputum -IV abx and antivirals -VAP bundle -Bronchodilators PRN, asp prec ID- tmax 99 -WBC 13-19 -Blood cx Haemophilus Influenza+ growth -Influenza A+ swab yesterday -Sputum culture klebsiella+ and MRSA+ -CXR 02/12 with bilateral infiltrates -changed to IV CTX (day#5); cont tamiflu (day#4); restart IV Vanco for MRSA+ in sputum, pharmacy dosing (last doses 6th and 8th (day#5)) ? GI- no output from NGT; mild bilious - nepro 10cc/hr, increase to goal 40cc/hr -bowel movement with lactulose+; ammonia improving; plan to d/c lactulose after today -cont PPI IV daily -hg stable, 1 prbc yesterday; no clear bleeding noted -abd still tense; ct abd/pelvis 02/09 reviewed; no acute process noted -shock liver+; mild coagulopathy+; LFTs trend -asp prec Renal- -WILNER; Cr elevated; ANURIC -no acidosis, K 3.5; anasarca+ -d/c d5w today -discussion with family as above for trial of HD; they would like to proceed -HD cathetor placed by ca -1st HD today -Nephrology consult reviewed/discussed with them -hypernatremia 150, reassess tomorrow -Mg level okay -LA persistent, likely poor clearance -ramey+ Heme- hg 11->8.5->4.1->8-9-7.8-7-8.8 -no clear bleeding source -s/p prbc x1 02/11 -thrombocytopenia; plt 50-60s -off IV heparin/asa -INR improved; monitoring; no further Vit K -DVT proph mech Endo- -hypoglycemia better; multifactorial from sepsis, shock, MODS -start lantus 8u q24h; sliding scale Musculsk- pressure ulcer prophylaxis. Bedrest. Wounds- none Nutrition- TF nepro DVT prophylaxis: SCD GI prophylaxis: PPI Central Line: RIJ 02/07; Left Fem HD 02/12 Arterial Line: Right fem 02/08 Ramey Cathetor: yes Disposition: Patient requires Critical Care/ICU for hypoxic/ischemic encephalopathy, cardiac arrest, acute hypoxic respiratory failure, WILNER Patient Clinical Status: stable/guarded, critical Code Status: full code Total Critical Care time is 55 minutes, excluding procedures/teaching Dorian Cruz MD Manager Travel (Electronically Signed)
[2019-02-12] MEDS ORDERED: Vancomycin Random Level* NOTE FOLLOW UP PRN (13:06)
[2019-02-12] MEDS: Insulin GLARGINE(*) 1 UNITS UNIT SUBCUT SCH (14:10)
--- NOTE | 2019-02-12 14:20 | PN ---
NEUROLOGICAL FOLLOWUP: DATE OF SERVICE: 02/12/19. PATIENT OF: Dr. Cruz. HISTORY: This is a 54-year-old woman status post cardiac arrest, now in coma, status post cooling and propofol drip. She has some posturing to noxious stimuli reported and has a cough when suctioned, she is breathing over the vent. Others have seen positive corneals. MEDICATIONS: Include: 1. Her Ventolin p.r.n. 2. Ceftriaxone. 3. Fentanyl 25 mcg p.r.n., last given at 11:15. 4. She is on the lactulose for her elevated ammonia. 5. Keppra 500 twice a day. 6. Metoprolol p.r.n. 7. Nicardipine drip. 8. Tamiflu. The propofol has been off since 02/09/19. PHYSICAL EXAMINATION: Temperature 99.9, pulse 119, respirations 32 as high as 46, blood pressure 136/60. She is comatose. Her pupils were sluggishly reactive to light and were symmetric. She has been breathing over the vent. I did not detect corneals but they have been detected at times. Today, there is no spontaneous movement. DIAGNOSTIC STUDIES/LAB DATA: I reviewed her EEG, which showed mixed extremely low- amplitude delta activity, which may be cerebrally generated. There are no epileptiform discharges. Her MRI scan, I reviewed, there was no significant edema. At this point, it is read as small subacute infarct in the cerebellum. There was some possibly low attenuation diffusely to my eye but this is hard to be sure of and this may just represent normal brain. Labs from today include white count of 19.2, hematocrit of 26, platelets of 43, 000. INR of 1.08. Fibrinogen was elevated at 421 yesterday. Blood gas today is 7.46, PCO2 of 31. Chemistries show CPK of 16,000, ammonia was 84, BUN 92, creatinine of 4.68. ASSESSMENT AND PLAN: I discussed with the daughter again and an aunt who works in the ICU that the longer that we go from the initial insult and from the sedation without her making dramatic improvement it is that she will have a permanent severe neurological deficit possibly something like a vegetative state. I have discussed that she does not have brain , she is breathing with most obvious sign in her breathing over the respirator and she is far enough out that it is likelihood she will not have brain . It is possible that her renal failure could be contributing to encephalopathy, but I think that the hypoxic-ischemic insult directly to the brain is the main thing that is driving her coma. I discussed that it is possible that her other organs will heal, the kidneys may or may not be able to function, and it is impossible that we would find herself in a situation where she may be a long-term survivor even possibly after that and if she has a cough and respiratory drive, but that she may have severe incapacitating neurological dysfunction on an ongoing basis. This is a distinct possibility. The family wants to continue to support her and to see how she does as her metabolic function clears and she goes further from the initial insult, and this is the game plan at this point. Thank you for sharing the case. [id number]/[facility] #: [id number] MARCIE
[2019-02-12] MEDS ORDERED: Heparin DIALYSIS ONLY(*) 1,000 UNITS/ML VIAL DIALYSIS ONE (15:00)
[2019-02-12] MEDS: cefTRIAXone(*) 1 GM in NS 0.9% 50 ML* 50 ML IVPB SCH (15:34)
--- NOTE | 2019-02-12 15:44 | EEG ---
ELECTROENCEPHALOGRAPHY: DATE OF STUDY: DATE OF DICTATION: 02/12/19. PATIENT OF: Dr. Cruz and Dr. Arriola. CLINICAL PROBLEM: This is a 54-year-old status post cardiac arrest, status post cooling, status post propofol drip, off since 02/09/19. She has renal and liver failure following her arrest as well and she remains intubated on the ventilator. MEDICATIONS: Include: 1. Keppra. 2. Humalog. 3. Cardene. 4. Tamiflu. 5. Lactulose. 6. Protonix. 7. Ventolin. 8. Fentanyl p.r.n. 9. Lopressor. REPORT: With the patient in coma, background cerebral activity shows extreme attenuation in some low-amplitude delta activity that may be cerebrally generated. No epileptiform potentials or focal abnormalities are noted. CLINICAL IMPRESSION: This EEG is abnormal consistent with a severe encephalopathy, but not specific as to etiology. [id number]/[facility] #: [id number] MTDD
--- NOTE | 2019-02-12 17:32 | CONS ---
CONSULTATION REPORT: DATE OF CONSULT: 02/12/19 REASON FOR CONSULT: Acute kidney injury and altered mental status. 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 Per discussion with the patient's daughter, the patient was healthy and no prior complaints. The patient recently has been depressed after the of her father a couple of weeks ago and reports that some people were sick at the and her daughter and she had been coughing prior to the witnessed collapse, but other than that, the patient was noted to be in good health. After her collapse and cardiac arrest, CPR was started. EMS arrived, was noted to be in PEA rhythm, was given 20 minutes of CPR, and on way to the ER, was noted to have a shockable rhythm and was defibrillated. Total downtime estimated to be 30 to 40 minutes and was intubated on the field. The patient has been managed by the ICU team. Had a TTE, showed some anterior inferior wall hypokinesis with mild LV systolic dysfunction. The patient was started on therapeutic hypothermia protocol initially and currently being managed in the ICU. Through her hospital course, the patient was being treated for shock, was initially on multiple pressors and currently off pressors and on a Cardene drip. The patient also noted to have right middle lobe and lower lobe pneumonia , more than left side, likely from aspiration and noted to be growing klebsiella and Staph aureus. Also noted to have Haemophilus influenzae bacteremia and noted to be positive for influenza A. Left pneumothorax noted. Per discussion with the ICU staff, the patient is currently off sedation for 48 hours and her mental status is not good. The patient is not responsive, does have intact brainstem reflexes and being evaluated by Neurology as well. With respect to her kidney function, the patient's family denies any known history of kidney disease or diabetes. Denies any family history of kidney disease. When the patient initially came to the hospital, the patient was noted to have a normal creatinine with a creatinine of 0.85. Through her complicated hospital course, the patient has had multiorgan failure and shock and sepsis with gradually worsening renal function. The patient also was noted to have extremely elevated CK with initial CK more than 18,000 in the setting of rhabdomyolysis, which can contribute to her kidney dysfunction as well. PAST MEDICAL HISTORY: 1. Vitiligo. 2. Diet-controlled diabetes. 3. Hcbd-xy-kjfmaawy aortic insufficiency. MEDICATIONS: Home medications prior to hospital stay: Tylenol p.r.n. Hospital medications have been reviewed. SOCIAL HISTORY: The patient works in a restaurant. Family denies use of recreational drugs. Does not smoke. Does not drink alcohol except socially, has been drinking more recently after recent of family member. REVIEW OF SYSTEMS: Unable to obtain. Intubated and history obtained from family and review of systems as mentioned in the HPI. PHYSICAL EXAM: Vitals: Temperature 99.5, pulse 112, respiratory rate 32, oxygen saturation 98%, blood pressure 139/55. HEENT: NC/AT. Heart: S1, S2 present. Tachycardic at the time of exam. Lungs: Decreased breath sounds bilaterally. Minimal crackles at the bases. Abdomen: Soft, nontender. No rebound. No guarding. Extremities noted to have no edema. Neuro: Brainstem reflexes intact per discussion with ICU team. Off sedation for 48 hours. Unresponsive. DIAGNOSTIC STUDIES/LAB DATA: Labs have been reviewed. Sodium 146, potassium 3.5, chloride 108, CO2 24, BUN 92, creatinine 4.68, glucose noted to be 232, calcium 6.4, phosphorus 5.6, magnesium 2.5. Ammonia level noted to be 84, which is lower than before. CK currently noted to be 16,510. UA has been reviewed, noted to be positive for some rbc's, wbc's, and crystals. The patient 's microbiology as discussed previously also noted to be positive for flu A. The patient had a CT of the abdomen and pelvis done on 02/09/19, which showed that the kidneys were normal in appearance without any focal mass, calcification , or signs of hydronephrosis. A Guzmán catheter was noted. Ins and outs have been reviewed and the patient noted to be anuric overnight and only made 15 cc of urine yesterday. ASSESSMENT AND PLAN: A 54-year-old female with recent cardiac arrest and shock with complicated ICU course with worsening renal failure in the setting of her hospitalization. 1. Acute kidney injury in the setting of shock and cardiac arrest with multiple organ failure. At this time, case was discussed in detail with the patient's family. The patient is currently anuric. Her mentation is poor. Limited trial of dialysis was discussed with the family and family wants to institute dialysis. Discussed dialyzing her for 3 sessions and evaluating mental status and recovery and family is agreeable to this. Case has also been discussed with the ICU team. The etiology of her renal failure is likely multifactorial in the setting of shock, cardiac arrest, likely from ischemic acute tubular necrosis in the setting of hypoperfusion to her kidneys combined with myoglobin injury in the setting of rhabdomyolysis. We will plan to dialyze her today. First session of dialysis in the setting of her encephalopathy, increased ammonia levels, we will use dialysate flow of 400, blood flow of 200, and 3K potassium bath. We will assess response and we will plan for UF of 0.5 to 1 L as the patient noted to be volume overloaded as tolerated. Dialysis orders discussed with HD nurse and per discussion with family, we will institute a time-limited trial of dialysis. 2. Discussed poor prognosis with family and they understand. 3. We will get UA, urine protein/creatinine ratio to evaluate for proteinuria. We will also get JESSI and ANCA and anti-GBM and other serologic workup on the patient as the patient noted to have some blood and protein in her urine. 4. We will also get routine hepatitis and TB testing prior to her initiation of dialysis. We will follow with the ICU team. [id number]/[facility] #: [id number] MARCIE
[2019-02-12] MEDS ORDERED: Vancomycin(*) 500 MG in NS 0.9% 250 ML* 250 ML IVPB ONE (18:00)
[2019-02-12 22:39] LABS: Urine Creatinine Concentration 21.18 mg/dL
[2019-02-13] MEDS: fentaNYL* 50 MCG/ML 2 ML VIAL (100 MCG VIAL) IV PRN ×2 (00:18→02:45)
[2019-02-13] MEDS: Chlorhexidine MOUTHWASH 0.12%* 15 ML UDC TOPICAL SCH ×6 (00:25→20:53)
[2019-02-13] MEDS: niCARdipine 0.1MG/ML IVPREMIX* 20 MG/200 ML BAG IV SCH ×6 (00:26→21:12)
[2019-02-13] MEDS: Insulin LISPRO* 1 UNITS UNIT SUBCUT SCH ×6 (00:35→20:53)
[2019-02-13] MEDS: levETIRAcetam 500 MG IVPREMIX* 500 MG/100 ML BAG IV SCH ×2 (02:46→15:14)
[2019-02-13 04:41] LABS: Hematocrit 25 % (33-41); Hemoglobin 8.7 g/dL (12.0-16.0); Mean Corpuscular HGB Conc 34 g/dL (31-36); Mean Corpuscular Hemoglobin 28 pg (27-31); Mean Corpuscular Volume 82 fL (80-97); Mean Platelet Volume 9.6 fL (7.4-10.4); Platelet Count 47 10^3/uL (150-450); Red Blood Count 3.09 10^6 /uL (3.70-4.87); Red Cell Distribution Width 21 % (10.5-15)
[2019-02-13 04:46] LABS: INR 1.08 (0.77-1.02)
[2019-02-13 04:57] LABS: Albumin 2.4 g/dL (3.2-5.2); BUN/Creatinine Ratio 18.1 (8-20); Calcium 6.9 mg/dL (8.6-10.3); EGFR African American 12.1 (>60); Globulin 2.4 g/dL (2-4); Indirect Bilirubin 0.8 mg/dL (0.3-1.0); Magnesium 2.3 mg/dL (1.9-2.7); Phosphorus 4.8 mg/dL (2.5-5.0); Potassium 3.8 mmol/L (3.5-5.0); Total Bilirubin 2.3 mg/dL (0.2-1.0); Total Protein 4.8 g/dL (6.4-8.9)
[2019-02-13] MEDS: Pantoprazole IV* 40 MG IV SCH (08:04)
[2019-02-13 10:38] LABS: Hepatitis B Surface Antigen Nonreactive (Nonreactive)
[2019-02-13 10:39] LABS: Hepatitis B Surface AB Immune (Immune)
[2019-02-13 11:04] LABS: Hepatitis C Antibody Nonreactive (Nonreactive)
--- NOTE | 2019-02-13 12:27 | PN ---
Progress Note - Progress Note Date of Service: 02/13/19 Note: Progress Note -- Critical Care 24 hour events -remains intubated -on cardene -s/p HD 02/12 1st session -no events overnight -tmax 100.2 -no seizure activity Tele: sinus tachy Vitals: Vital Signs Temp 98.6 F 02/13/19 07:55 Pulse 109 02/13/19 10:01 Resp 25 02/13/19 06:00 BP 152/75 02/13/19 10:00 Pulse Ox 98 02/13/19 10:01 Intake & Output 02/12/19 02/13/19 02/13/19 18:59 06:59 18:59 Intake Total 782 1326 Output Total 810 35 3 Balance -28 1291 -3 Intake: IV Fluids 429 10 D5W 429 10 IVPB 365 Keppra 105 vanco 260 Medicated IV 353 339 Cardene 353 339 Oral 0 Tube Feeding 462 Tube Feeding Flush Amount 150 Output: Urine 0 Ramey 10 35 3 Straight Cath 0 Liquid Stool 800 O2/Vent:AC 18/450/+10/60% Infusions: cardene Current Medications: Acetaminophen (Tylenol Supp*) 650 mg OK Q6H PRN PRN Reason: FEVER Albuterol (Ventolin 2.5 Mg/3 Ml Neb.Natalie*) 2.5 mg INH [id number] AWAKE PRN PRN Reason: sob/wheezing Carboxymethylcellulose/Glycerin (Refresh Optive Gel Eye Gel) 1 applic BOTH EYES Q4H PRN PRN Reason: DRY EYE Last Admin: 02/12/19 05:00 Dose: 1 applic Chlorhexidine Gluconate (Peridex Mouth Wash 0.12%*) 15 ml TOPICAL Q4H CÉSAR Last Admin: 02/13/19 12:52 Dose: 15 ml Dextrose (D50w Syringe 50 Ml*) 12.5 gm IV PUSH .FOR FS < 60 - SS PRN PRN Reason: FS < 60 Last Admin: 02/09/19 13:35 Dose: 12.5 gm Fentanyl Citrate (Fentanyl*) 25 mcg IV Q1H PRN PRN Reason: .RESPIRATORY DISTRESS Last Admin: 02/13/19 02:45 Dose: 25 mcg Propofol (Diprivan*) 100 mls @ 1.497 mls/hr IV .(Initial Rate) CÉSAR; Protocol Last Admin: 02/09/19 12:26 Dose: 12 mls/hr Norepinephrine Bitartrate (Levophed 16 Mcg/Ml Premix Bag*) 4,000 mcg in 250 mls @ 30 mls/hr IV .INITIAL RATE [facility] Last Admin: 02/09/19 16:55 Dose: 26.3 mls/hr Levetiracetam (Keppra Iv Premix*) 500 mg in 100 mls @ 400 mls/hr IV Q12H [facility] Last Admin: 02/13/19 02:46 Dose: 400 mls/hr Nicardipine/Sodium Chloride (Cardene 0.1mg/Ml Ivpremix*) 20 mg in 200 mls @ 20 mls/hr IV Q10H [facility]; Protocol Last Admin: 02/13/19 08:59 Dose: 50 mls/hr Ceftriaxone Sodium 1 gm/ (Sodium Chloride) 50 mls @ 200 mls/hr IVPB Q24H [facility] Last Admin: 02/12/19 15:34 Dose: 200 mls/hr Insulin Glargine (Lantus(*)) 8 units SUBCUT Q24H [facility] Last Admin: 02/13/19 12:53 Dose: 8 unit Insulin Human Lispro (Humalog*) 0 units SUBCUT FS Q4 ICU [facility]; Protocol Last Admin: 02/13/19 12:52 Dose: 1 unit Metoprolol Tartrate (Lopressor Iv*) 2.5 mg IV Q4H PRN PRN Reason: for HR >120 Last Admin: 02/11/19 01:00 Dose: 2.5 mg Pantoprazole Sodium (Protonix Iv*) 40 mg IV DAILY [facility] Last Admin: 02/13/19 08:04 Dose: 40 mg Pharmacy Consult (Vancomycin Per Pharmacy*) 1 note FOLLOW UP .VANC PER PHARMACY [facility] Pharmacy Consult (Vancomycin Random Level*) 1 note FOLLOW UP MoWeFr@0600 [facility] Physical Exam: Constitutional: intubated, not responsive, tachypnea+, no diaphoresis Head: normocephalic, atraumatic Eyes: no pallor, no icterus ENT: moist mucous membranes Neck: soft, supple, no jvd CVS: normal rate, regular, no murmur Resp: bilateral air entry, minimal rhales on right now, no wheeze, no rhonchi, no acc muscle use; CT+ on left anterior wall; mild subcut emph noted still Abdomen/GI: soft, +tense, nondistended, BS diminished Ext/Msk: warm, pulses+, Anasarca+ Skin: intact; vitiligo+ Neuro: not awake; responds to painful stimuli with flexion; pupils bilaterally 1 -2mm and reactive sluggishly; corneal reactivity+ b/l, cough+ , gag+, spontaneous breathing on CPAP mode Labs: REVIEWED Imaging: CT brain 02/07 - no focal findings CXR 02/07 - bilateral infiltrates consistent with possible pulm edema; next CXR with left PTX; next CXR with left cathetor, improved PTX, still mild bilateral infiltrates TTE 02/07 - lvef 40-50%, infero and mild pratibha hypokinesis cxr 02/09 - ett above mini, more consistent RML/RLL consolidation++ ct abd/pelvis 02/09 reviewed; no acute process noted ct chest 02/09 - bilateral consolidations+, CT+, subcut emph+; small apical ptx on left ct brain 02/09 - no cerebral edema noted cxr 02/10 - bilateral infiltrates+; stable/improved slightly on right; CT on left+ , no ptx noted CXR 02/11 - left CT+, no PTX Noted; right sided infiltrates+; not subcut emph bilaterally upper chest cxr 02/12 - bilateral infiltrates+; CT in palce, no change in PTX, none noted Assessment: 54y F w/pmhx of diet controlled DM, Vitiligo, past h/o mild-mod AI; 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 CPR started at work. EMS arrived, found PEA rhythm, gave 20min of CPR. En route to ED, shockable rhythm noted and defibrillated. In ER, PEA arrest, CPR continued with ROSC in ~5min ?, total Downtime estimated to be 30-40min suspected. Already intubated in field I suspect. In ER, noted to have pulmonary edema on CXR. EKG with inferior and anterolateral ST depressions. Cardiology consulted but deemed to likely have some degree of global ischemia from cardiac arrest. Overnight TTE performed and demonstrated anterior and inferior wall hypokinesis with mild LV systolic dysfunction. 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 She was started on Therapeutic hypothermia tx, IV heparin for possible ACS. Overnight noted to have some posturing, so neurology was consulted. 02/08 - VFib x2 likely from torsades and electrolyte disturbances; elevated PTTs from IV heparin; remains cooling. 02/09 - drop in h/h to 4.1, transfusing, d/c IV heparin; plan to start rewarming phase; noted Influenza A+ swab 02/10 - rewarmed overnight; neuro workup with EEG 02/11 - no new events 02/12 - HD cathetor placed, 1st HD session -VT/VF/PEA Cardiac Arrest -Therapeutic Hypothermia 02/07 -Acute Hypoxic Respiratory Failure/ARDS -Pulmonary Edema -Shock, multifactorial/unspecified, resolved -Right ML/LL pneumonia > Left side, aspiration pneumonia with klebsiella and MRSA+ -Haemophilus influenza bacteremia -Influenza A infection+ -Iatrogenic Left PTX 02/07; s/p left Left PTX -Shock liver -VT/VF -Rhabdomyolysis -Upper GI bleed, suspected gastritis -acute blood loss anemia -thrombocytopenia -prolonged qTC -VT 2/2 torsades de pointes 12/07 to hypokalemia/hypomag and hypocalcemia -hypoglycemia -hypoxic-ischemic Encephalopathy -coagulopathy of liver disease/dysfunction -WILNER, anuric; now on HD 02/12 Plan: Neuro- -off sedation ; has not awoken -CT brain 02/09 with no sig cerebral edema noted -EEG 02/10 with slow brain activity; repeat EEG 02/12 similar findings -MRI brain 02/11 with bilateral cerebellar small infarcts, no hemorrhage/edema -PRN ativan for seizures; none further noted -cont keppra 500mg IV q12h for seizure proph -ammonia improved to 61 02/13; will continue lactulose once ; re-eval tomorrow again -does not meet criteria for brain ; has pupillar/corneal/cough reflexes and spontaneous breathign over vent -likely severe anoxic injury; some small infarcts but likely not contributing to this encephalopathy -family would like to try HD trials in attempt to see if residual sedation/ toxins/uremia may be a factor; discussion about trial of HD 2-3 sessiosn would be done and re-eval neuro status after that; they have agreed -poor prognosis overall expected; currently likely has severe hypoxic/ischemic encephalopathy, not meeting criteria for brain testing -neuro consult reviewed -maintain off sedation for now -asp prec CVS- -s/p cardiac arrest, Vt/VT; repeat eepisode 4/6 AM and PM -No further VT noted; electrolytes being monitored and corrected as needed -BP 140-160s; cardene to goal of 120-150 -tele monitoring for further VT/Torsades -off pressors ; on cardene for BP control -TTE 02/09 - normal LV function now; no valvular abn -Qtc normalized as of 02/10 -maintain MAP>65, SBP>90 -maintain adequate urine output -overall fluid overload and edema++ -hg - now; s/p prbc x1 02/11; no clear bleeding noted -off AC/ASA; may hae to reintroduce sq heparin if hg stable -LA elevated/not cleared completely Resp- -Intubated AC 18/450/+10/60% -ABG reviewed; decrease peep to 8, then dec fio2; ABG tonight repeat -CXR tomorrow -CXR 02/12 with bialteral infiltrates; possible increased congestion? -no wheezing -chest subcut emphysema resolved; if stable tomorrow will consider d/c of left chest tube; cont water seal CT for now -no plan for weaning till neurologically improved -mild secretions; noted kleb and staph in sputum -IV abx and antivirals -VAP bundle -Bronchodilators PRN, asp prec ID- tmax 100.2 -WBC 13-19-17 -Blood cx Haemophilus Influenza+ growth -Influenza A+ swab yesterday -Sputum culture klebsiella+ and MRSA+ -CXR 02/12 with bilateral infiltrates -IV CTX (day#6); cont tamiflu (day#5); IV Vanco for MRSA+ in sputum, pharmacy dosing (last doses 6th and 8th (day#6)) ? GI- no output from NGT; mild bilious -nepro 30cc/hr, increase to goal 40cc/hr -bowel movement with lactulose+; ammonia improving; repeat lactulose x1 today -cont PPI IV daily -hg stable; no clear bleeding noted -abd still tense; ct abd/pelvis 02/09 reviewed; no acute process noted -shock liver+; mild coagulopathy+; LFTs trending down and improving -asp prec Renal- -WILNER; Cr elevated; ANURIC -no acidosis, K 3.8; anasarca+ -s/p HD 02/12; next HD with more volume removal planned 02/14 -trials of HD, re-eval sunday based on neuro status for further long term plan -Nephrology consult reviewed -hypernatremia improved -Mg level okay -Lactic acid resolved -ramey+ Heme- hg 11->8.5->4.1->8-9-7.8-7-8.8-8.7 -no clear bleeding source -s/p prbc x1 02/11 -thrombocytopenia; plt 50-60s; stable -off IV heparin/asa -INR improved; monitoring -DVT proph [facility] Endo- -BG <200 goal; cont lantus 8u q24h; sliding scale; on TF nepro Musculsk- pressure ulcer prophylaxis. Bedrest. Wounds- none Nutrition- TF nepro DVT prophylaxis: SCD GI prophylaxis: PPI Central Line: RIJ 02/07; Left Fem HD 02/12 Arterial Line: Right fem 02/08 Ramey Cathetor: yes Disposition: Patient requires Critical Care/ICU for hypoxic/ischemic encephalopathy, cardiac arrest, acute hypoxic respiratory failure, WILNER Patient Clinical Status: stable/guarded, critical Code Status: full code Total Critical Care time is 55 minutes, excluding procedures/teaching Dorian Cruz MD [employer]on Supervisor (Electronically Signed)
[2019-02-13] MEDS: Insulin GLARGINE(*) 1 UNITS UNIT SUBCUT SCH (12:53)
--- NOTE | 2019-02-13 14:41 | PN ---
NEUROLOGICAL FOLLOWUP NOTE: DATE OF SERVICE: 02/13/19 She has had no purposeful movements with some flexion of her arms at times when she is stimulated. There has been no seizure activity. Her medications continued to be Ventolin p.r.n. Ceftriaxone, Lantus 8 units q.12 hours, Keppra 500 mg b.i.d., metoprolol p.r.n. Blood pressure 140/64, pulse 108, respirations 29, temperature 98.6, she was comatose and did not move to noxious stimuli on either side, other than some light tightening of her arms. There is no semipurposeful movements. Pupils were 2 and sluggish. She had a corneal on the right but not the left. She had a gag and cough and she is breathing over the ventilator. Per nurse's she has had some rales. Cardiovascular: Regular rate and rhythm. Labs include normal electrolytes. BUN 83 today, status post dialysis yesterday , creatinine 4.58, glucose 148. Her ammonia is 61. AST 1979, ALT 1780, CPK 9313. She was discussed with family again that she is not brain and has some clear cranial nerve function. I discussed that as time goes by, her metabolic abnormalities such as her liver failure and her acute renal failure, the metabolic abnormalities will improve either because the kidneys will begin improving or because she will be on a regimen of dialysis. As metabolic impairments improve their effect on her level of alertness will be less of a factor; however, her ammonia is significantly improved and I think that the hypoxic ischemia injury to the brain is likely a major component. There has been some subtle improvement there and it is unclear how her case will evolve. There can be further improvements but it is unclear how much function she will regain. I discussed this and that my concern is that she will still be less in a comatose vegetative state or something along those lines. This is a realistic possibility. Thank you for sharing her case. [id number]/[facility] [place] #: [id number] MARCIE
[2019-02-13] MEDS: cefTRIAXone(*) 1 GM in NS 0.9% 50 ML* 50 ML IVPB SCH (14:51)
[2019-02-13] MEDS: Metoprolol Tartrate TAB* 25 MG PO SCH ×3 (15:31→20:54)
[2019-02-13 17:58] LABS: BUN/Creatinine Ratio 19.2 (8-20); Calcium 6.6 mg/dL (8.6-10.3); EGFR African American 10.2 (>60); EGFR Non-African American 8.4 (>60)
[2019-02-13 18:00] LABS: Potassium 4.7 mmol/L (3.5-5.0)
[2019-02-13] MEDS: Carboxymethylcellulose/Glyceri 10 ML OPHTH.GEL lubricant eye gel BOTH EYES PRN (20:00)
[2019-02-13] MEDS ORDERED: EPINEPHrine SYR 0.1MG/ML* SYRINGE ONE (22:51)
[2019-02-14 00:03] LABS: Albumin 2.4 g/dL (3.2-5.2); Albumin/Globulin Ratio 0.9 (1-3); EGFR African American 9.3 (>60); EGFR Non-African American 7.7 (>60); Globulin 2.6 g/dL (2-4); Magnesium 2.4 mg/dL (1.9-2.7); Potassium 3.5 mmol/L (3.5-5.0); Total Bilirubin 1.4 mg/dL (0.2-1.0)
[2019-02-14 00:06] LABS: Calcium 6.4 mg/dL (8.6-10.3)
[2019-02-14] MEDS ORDERED: Calcium Gluconate INJ* 2 GM in NS 0.9% 100 ML* 100 ML IV ONE (00:30)
--- NOTE | 2019-02-14 00:31 | PN ---
Hospitalist Progress Note ABC Code called at approx 23:15 PM. Arrived and noted staff performing chest compressions. ticket printer concerning for vifb arrest. Approx 3 rounds of chest compressions with epi x 1 and biphasic 150 J shock administered. After approx 6 min, pt had ROSC. Pt continues to have no mental status. Chest tube dislodged during CPR. Evaluated by Dr. Moore from ER - thought no longer indicated given very small apical PTX noted on post-code CXR. Labs notable for corrected calcium 7.7, K 3.5 pH 7.4, pCO2 31 - replete electrolytes - repeat CXR overnight - will decrease tidal volume to 350cc, as noted with hyperinflation on CXR - maintain SaO2 > 94% - pt currently on FiO2 100% - consider sedation to avoid hyperventilation, will discuss with Dr. Cruz - repeat EKG - no need for TTM given patient has already been cooled Discussed with family seated outside room. All questions answered. Family confirms FULL CODE.
[2019-02-14] MEDS: Artificial Tear OPHTH.OINT* 3.5 GM BOTH EYES SCH ×5 (00:38→22:14)
[2019-02-14 00:43] LABS: Hematocrit 25 % (33-41); Hemoglobin 8.3 g/dL (12.0-16.0); Mean Corpuscular HGB Conc 33 g/dL (31-36); Mean Corpuscular Hemoglobin 27 pg (27-31); Mean Corpuscular Volume 82 fL (80-97); Red Blood Count 3.02 10^6 /uL (3.70-4.87); Red Cell Distribution Width 22 % (10.5-15); White Blood Count 20.1 10^3/uL (3.5-10.8)
[2019-02-14] MEDS: Chlorhexidine MOUTHWASH 0.12%* 15 ML UDC TOPICAL SCH ×6 (00:44→22:05)
[2019-02-14 00:49] LABS: ABS Basophils 0 10^3/ul (0-0.2); ABS Eosinophils 0 10^3/ul (0-0.6); ABS Lymphocytes 0.8 10^3/ul (1.0-4.8); ABS Monocytes 0.9 10^3/ul (0-0.8); ABS Neutrophils 18.4 10^3/ul (1.5-7.7); ABS Nucleated RBC 0.3 10^3/ul; Eosinophil % 0.1 %; Lymphocyte % 4.1 %; Mean Platelet Volume 9.9 fL (7.4-10.4); Nucleated Red Blood Cells % 1.5; Platelet Count 50 10^3/uL (150-450)
[2019-02-14] MEDS ORDERED: KCL 20 MEQ/100 ML IVPREMIX* 20 MEQ/100 ML BAG IV ONE (01:00)
[2019-02-14] MEDS: Insulin LISPRO* 1 UNITS UNIT SUBCUT SCH ×6 (01:12→22:05)
[2019-02-14] MEDS: levETIRAcetam 500 MG IVPREMIX* 500 MG/100 ML BAG IV SCH ×2 (03:51→15:40)
[2019-02-14] MEDS: niCARdipine 0.1MG/ML IVPREMIX* 20 MG/200 ML BAG IV SCH ×4 (04:50→16:50)
[2019-02-14] MEDS ORDERED: Vancomycin Random Level* NOTE FOLLOW UP SCH (06:00)
[2019-02-14] MEDS: Carboxymethylcellulose/Glyceri 10 ML OPHTH.GEL lubricant eye gel BOTH EYES PRN ×2 (06:19→22:12)
[2019-02-14 06:36] LABS: Hematocrit 25 % (33-41); Hemoglobin 8.3 g/dL (12.0-16.0); Mean Corpuscular HGB Conc 34 g/dL (31-36); Mean Corpuscular Hemoglobin 28 pg (27-31); Mean Corpuscular Volume 82 fL (80-97); Mean Platelet Volume 10.5 fL (7.4-10.4); Platelet Count 62 10^3/uL (150-450); Red Blood Count 3.01 10^6 /uL (3.70-4.87); Red Cell Distribution Width 23 % (10.5-15); White Blood Count 25.3 10^3/uL (3.5-10.8)
[2019-02-14 06:39] LABS: Albumin 2.4 g/dL (3.2-5.2); Albumin/Globulin Ratio 0.9 (1-3); BUN/Creatinine Ratio 20.3 (8-20); Calcium 6.9 mg/dL (8.6-10.3); EGFR African American 8.8 (>60); EGFR Non-African American 7.2 (>60); Globulin 2.6 g/dL (2-4); INR 1.01 (0.77-1.02); Indirect Bilirubin 0.6 mg/dL (0.3-1.0); Magnesium 2.4 mg/dL (1.9-2.7); Phosphorus 5.9 mg/dL (2.5-5.0); Potassium 4.3 mmol/L (3.5-5.0); Total Bilirubin 1.5 mg/dL (0.2-1.0)
[2019-02-14] MEDS: Pantoprazole IV* 40 MG IV SCH (08:11)
[2019-02-14] MEDS: Metoprolol Tartrate TAB* 25 MG PO SCH ×2 (08:59→21:56)
[2019-02-14] MEDS ORDERED: Heparin DIALYSIS ONLY(*) 1,000 UNITS/ML VIAL DIALYSIS ONE (10:00)
[2019-02-14] MEDS ORDERED: Vancomycin(*) 500 MG in NS 0.9% 250 ML* 250 ML IVPB ONE (13:00)
[2019-02-14 13:41] VITALS: BP 91/50
[2019-02-14] MEDS: Insulin GLARGINE(*) 1 UNITS UNIT SUBCUT SCH (15:31)
[2019-02-14] MEDS: cefTRIAXone(*) 1 GM in NS 0.9% 50 ML* 50 ML IVPB SCH (15:32)
[2019-02-14 16:24] LABS: Kappa Free Light Chain 8.32 mg/dL; Lambda Free Light Chain 5.32 mg/dL
--- NOTE | 2019-02-14 16:51 | PN ---
Date of Service: 02/14/19 - [facility] note Critical Care Services: Pt seen and examined at bedside. 02/07- Cardiac arrest at work 02/08 - VFib x2 likely from torsades and electrolyte disturbances; elevated PTTs from IV heparin; remains cooling. 02/09 - drop in h/h to 4.1, transfusing, d/myron IV heparin; rewarming started; Influenza A+ swab 02/10 - rewarmed overnight; neuro workup with EEG 02/11 - no new events 02/12 - HD cathetor placed, 1st HD session 02/13- Pt had V.fib arrest last night, required defibrillation. Epix2 Pt received HD 02/12, 02/14 Remains on cardene drip Not on sedation- no response Active Medications Generic Name Dose Route Start Last Admin Trade Name Freq PRN Reason Stop Dose Admin Acetaminophen 650 mg 02/08/19 04:08 Tylenol Supp* W[place] Q6H PRN FEVER Albuterol 2.5 mg 02/08/19 01:17 Ventolin 2.5 Mg/3 Ml Neb.Natalie* INH [id number] AWAKE PRN sob/wheezing Artificial Tears 1 applic 02/13/19 22:00 02/14/19 08:11 Lacrilube Oint* BOTH EYES 1 applic Q6H CÉSAR Administration Carboxymethylcellulose/Glycerin 1 applic 02/08/19 18:14 02/14/19 06:19 Refresh Optive Gel Eye Gel BOTH EYES 1 applic Q4H PRN Administration DRY EYE Chlorhexidine Gluconate 15 ml 02/08/19 11:00 02/14/19 15:31 Peridex Mouth Wash 0.12%* TOPICAL 15 ml Q4H CÉSAR Administration Dextrose 12.5 gm 02/08/19 01:14 02/09/19 13:35 D50w Syringe 50 Ml* IV PUSH 12.5 gm .FOR FS < 60 - SS PRN Administration FS < 60 Fentanyl Citrate 25 mcg 02/10/19 02:50 02/13/19 02:45 Fentanyl* IV 25 mcg Q1H PRN Administration .RESPIRATORY DISTRESS Propofol 100 mls @ 1.497 mls/hr 02/07/19 23:45 02/09/19 12:26 Diprivan* IV 12 mls/hr .(Initial Rate) CÉSAR Administration Protocol 5 MCG/KG/MIN Norepinephrine Bitartrate 4,000 mcg in 250 mls @ 30 mls/hr 02/08/19 05:00 05/23 16:55 Levophed 16 Mcg/Ml Premix Bag* IV 26.3 mls/hr .INITIAL RATE CÉSAR Administration 8 MCG/MIN Levetiracetam 500 mg in 100 mls @ 400 mls/hr 02/10/19 03:00 02/14/19 15:40 Keppra Iv Premix* IV 400 mls/hr Q12H CÉSAR Administration Nicardipine/Sodium Chloride 20 mg in 200 mls @ 20 mls/hr 02/10/19 12:00 02/14 08:57 Cardene 0.1mg/Ml Ivpremix* IV 30 mls/hr Q10H CÉSAR Administration Protocol 2 MG/HR Ceftriaxone Sodium 1 gm/ 50 mls @ 200 mls/hr 02/11/19 15:00 02/14/19 15:32 Sodium Chloride IVPB 200 mls/hr Q24H CÉSAR Administration Insulin Glargine 8 units 02/12/19 13:00 02/14/19 15:31 Lantus(*) SUBCUT 8 unit Q24H [facility] Administration Insulin Human Lispro 0 units 02/12/19 08:00 02/14/19 13:07 Humalog* SUBCUT Not Given FS Q4 ICU [facility] Protocol Metoprolol Tartrate 2.5 mg 02/10/19 15:06 02/11/19 01:00 Lopressor Iv* IV 2.5 mg Q4H PRN Administration for HR >120 Metoprolol Tartrate 25 mg 02/14/19 09:00 02/14/19 08:59 Lopressor Tab* PO Not Given Q12HR [facility] Pantoprazole Sodium 40 mg 02/12/19 09:00 02/14/19 08:11 Protonix Iv* IV 40 mg DAILY CÉSAR Administration Pharmacy Consult 1 note 02/12/19 10:00 Vancomycin Per Pharmacy* FOLLOW UP .VANC PER PHARMACY [facility] Pharmacy Consult 1 note 02/14/19 06:00 02/14/19 06:19 Vancomycin Random Level* FOLLOW UP 1 note [id number] CÉSAR Administration Vital Signs: Temp Pulse Resp BP SpO2 FiO2 97.5 F 93 26 91/50 91 100 02/14/19 13:15 02/14/19 13:15 02/14/19 12:00 02/14/19 12:45 02/14/19 13:15 02/14 16:00 Physical Exam: Gen: Pt in NAD, anasarcic, no response to stimuli HEENT: ETT+ Lungs: Diminished air entry b/l, no wheeze Cardiac: S1, S2+, regular Abdomen: Distended Extremities: Anasarca+ Neuro: Cough reflex to suction, has some spontaneous breathing efforts Skin: No rash Fluid Balance (Past 24 Hours): I= 1924 O= 770 Net 1154 Intake & Output 02/12/19 02/13/19 02/14/19 02/15/19 06:59 06:59 06:59 06:59 Intake Total 3240 2108 1924 500 Output Total 1586 845 770 8 Balance 1654 1263 1154 492 Weight 153 lb 146 lb 8 oz Intake: IV Fluids 1838 439 540 40 D5W 1517 439 KCl 100 Keppra 100 100 Normal Saline 221 220 40 calcium gluc 120 zosyn 0 IVPB 445 365 168 Keppra 107 105 Normal Saline 168 vanco 260 zosyn 338 Medicated IV 685 692 629 141 Cardene 685 692 629 141 Oral 0 Tube Feeding 152 462 497 Tube Feeding Flush Amount 120 150 90 NG Tube Irrigate Amount 299 Guzmán Irrigate Amount 20 Output: Chest Tube #1 34 43 Urine 0 Guzmán 52 45 27 8 Straight Cath 0 Liquid Stool 1500 800 700 Other: Date of Last Bowel 02/11/19 Movement Labs: Laboratory Results - last 24 hr 02/12/19 02/12/19 02/12/19 18:22 20:12 20:12 WBC RBC Hgb Hct MCV MCH MCHC RDW Plt Count MPV Neut % (Auto) Lymph % (Auto) [place] % (Auto) Eos % (Auto) Baso % (Auto) Absolute Neuts (auto) Absolute Lymphs (auto) Absolute Monos (auto) Absolute Eos (auto) Absolute Basos (auto) Absolute Nucleated RBC Nucleated RBC % Hem Pathologist Commnt INR (Anticoag Therapy) Patient Temperature ABG pH ABG pH (Temp Correct) ABG pCO2 ABG pCO2 (Temp Corrct ABG pO2 ABG pO2 (Temp Correct ABG HCO3 ABG O2 Saturation ABG Base Excess Respiration Rate O2 Delivery Device Ventilator Type Vent Mode FiO2 Inspiratory Time PEEP Pressure Support Pressure Control EPAP IPAP BiPAP Sodium Potassium Chloride Carbon Dioxide Anion Gap BUN Creatinine Est GFR ( Amer) Est GFR (Non-Af Amer) BUN/Creatinine Ratio Glucose POC Glucose (mg/dL) Calcium Phosphorus Magnesium Total Bilirubin Direct Bilirubin Indirect Bilirubin AST ALT Alkaline Phosphatase Ammonia Total Creatine Kinase Total Protein Albumin Globulin Albumin/Globulin Ratio Random Vancomycin Heber Light Chain 8.32 H Lambda Light Chain 5.32 H Heber/Lambda Ratio 1.56 Proteinase 3 (PR3) 0.2 Myeloperoxidase Ab < 0.2 Glomerular Base Memb Ab <0.2 TB (QFT) Gold In Tube TNP TB Test (QFT) Nil TNP TB Test Mitogen - Nil TNP TB Test Antigen - Nil TNP 02/13/19 02/13/19 02/13/19 16:30 20:31 20:36 WBC RBC Hgb Hct MCV MCH MCHC RDW Plt Count MPV Neut % (Auto) Lymph % (Auto) [place] % (Auto) Eos % (Auto) Baso % (Auto) Absolute Neuts (auto) Absolute Lymphs (auto) Absolute Monos (auto) Absolute Eos (auto) Absolute Basos (auto) Absolute Nucleated RBC Nucleated RBC % Hem Pathologist Commnt INR (Anticoag Therapy) Patient Temperature 38.2 ABG pH 7.45 ABG pH (Temp Correct) Not Reportable ABG pCO2 30 L ABG pCO2 (Temp Corrct Not Reportable ABG pO2 94 ABG pO2 (Temp Correct Not Reportable ABG HCO3 23.3 ABG O2 Saturation 98.9 H ABG Base Excess -2.1 L Respiration Rate 31 O2 Delivery Device vent Ventilator Type 400 Vent Mode apv/cmv FiO2 50 Inspiratory Time Not Reportable PEEP 8 Pressure Support Not Reportable Pressure Control Not Reportable EPAP Not Reportable IPAP Not Reportable BiPAP Not Reportable Sodium 144 Potassium 4.7 Chloride 107 Carbon Dioxide 20 L Anion Gap 17 H BUN 102 H Creatinine 5.30 H Est GFR ( Amer) 10.2 Est GFR (Non-Af Amer) 8.4 BUN/Creatinine Ratio 19.2 Glucose 206 H POC Glucose (mg/dL) 213 H Calcium 6.6 L Phosphorus Magnesium Total Bilirubin Direct Bilirubin Indirect Bilirubin AST ALT Alkaline Phosphatase Ammonia Total Creatine Kinase Total Protein Albumin Globulin Albumin/Globulin Ratio Random Vancomycin Heber Light Chain Lambda Light Chain Heber/Lambda Ratio Proteinase 3 (PR3) Myeloperoxidase Ab Glomerular Base Memb Ab TB (QFT) Gold In Tube TB Test (QFT) Nil TB Test Mitogen - Nil TB Test Antigen - Nil 02/13/19 02/13/19 02/14/19 23:29 23:42 00:00 WBC 20.1 H RBC 3.02 L Hgb 8.3 L Hct 25 L MCV 82 MCH 27 MCHC 33 RDW 22 H Plt Count 50 L MPV 9.9 Neut % (Auto) 91.2 Lymph % (Auto) 4.1 [place] % (Auto) 4.4 Eos % (Auto) 0.1 Baso % (Auto) 0.2 Absolute Neuts (auto) 18.4 H Absolute Lymphs (auto) 0.8 L Absolute Monos (auto) 0.9 H Absolute Eos (auto) 0 Absolute Basos (auto) 0 Absolute Nucleated RBC 0.3 Nucleated RBC % 1.5 Hem Pathologist Commnt INR (Anticoag Therapy) Patient Temperature Not Reportable ABG pH 7.40 ABG pH (Temp Correct) Not Reportable ABG pCO2 31 L ABG pCO2 (Temp Corrct Not Reportable ABG pO2 93 ABG pO2 (Temp Correct Not Reportable ABG HCO3 21.4 ABG O2 Saturation 98.4 H ABG Base Excess -4.5 L Respiration Rate Not Reportable O2 Delivery Device vent Ventilator Type 400 Vent Mode apv/cmv FiO2 100 Inspiratory Time Not Reportable PEEP 8 Pressure Support Not Reportable Pressure Control Not Reportable EPAP Not Reportable IPAP Not Reportable BiPAP Not Reportable Sodium 144 Potassium 3.5 Chloride 108 Carbon Dioxide 22 Anion Gap 14 H BUN 115 H Creatinine 5.75 H Est GFR ( Amer) 9.3 Est GFR (Non-Af Amer) 7.7 BUN/Creatinine Ratio 20.0 Glucose 187 H POC Glucose (mg/dL) Calcium 6.4 L* Phosphorus 6.0 H Magnesium 2.4 Total Bilirubin 1.40 H Direct Bilirubin Indirect Bilirubin AST 948 H ALT 1177 H Alkaline Phosphatase 351 H Ammonia Total Creatine Kinase Total Protein 5.0 L Albumin 2.4 L Globulin 2.6 Albumin/Globulin Ratio 0.9 L Random Vancomycin Heber Light Chain Lambda Light Chain Heber/Lambda Ratio Proteinase 3 (PR3) Myeloperoxidase Ab Glomerular Base Memb Ab TB (QFT) Gold In Tube TB Test (QFT) Nil TB Test Mitogen - Nil TB Test Antigen - Nil 02/14/19 02/14/19 02/14/19 01:06 04:48 06:00 WBC RBC Hgb Hct MCV MCH MCHC RDW Plt Count MPV Neut % (Auto) Lymph % (Auto) [place] % (Auto) Eos % (Auto) Baso % (Auto) Absolute Neuts (auto) Absolute Lymphs (auto) Absolute Monos (auto) Absolute Eos (auto) Absolute Basos (auto) Absolute Nucleated RBC Nucleated RBC % Hem Pathologist Commnt INR (Anticoag Therapy) Patient Temperature ABG pH ABG pH (Temp Correct) ABG pCO2 ABG pCO2 (Temp Corrct ABG pO2 ABG pO2 (Temp Correct ABG HCO3 ABG O2 Saturation ABG Base Excess Respiration Rate O2 Delivery Device Ventilator Type Vent Mode FiO2 Inspiratory Time PEEP Pressure Support Pressure Control EPAP IPAP BiPAP Sodium 144 Potassium 4.3 Chloride 109 Carbon Dioxide 20 L Anion Gap 15 H BUN 123 H Creatinine 6.05 H Est GFR ( Amer) 8.8 Est GFR (Non-Af Amer) 7.2 BUN/Creatinine Ratio 20.3 H Glucose 170 H POC Glucose (mg/dL) 185 H 158 H Calcium 6.9 L Phosphorus 5.9 H Magnesium 2.4 Total Bilirubin 1.50 H Direct Bilirubin 0.90 H Indirect Bilirubin 0.6 AST 729 H ALT 1038 H Alkaline Phosphatase 369 H Ammonia Total Creatine Kinase 4762 H Total Protein 5.0 L Albumin 2.4 L Globulin 2.6 Albumin/Globulin Ratio 0.9 L Random Vancomycin Heber Light Chain Lambda Light Chain He[place]/Lambda Ratio Proteinase 3 (PR3) Myeloperoxidase Ab Glomerular Base Memb Ab TB (QFT) Gold In Tube TB Test (QFT) Nil TB Test Mitogen - Nil TB Test Antigen - Nil 02/14/19 02/14/19 02/14/19 06:00 06:00 06:00 WBC 25.3 H RBC 3.01 L Hgb 8.3 L Hct 25 L MCV 82 MCH 28 MCHC 34 RDW 23 H Plt Count 62 L MPV 10.5 H Neut % (Auto) Lymph % (Auto) [place] % (Auto) Eos % (Auto) Baso % (Auto) Absolute Neuts (auto) Absolute Lymphs (auto) Absolute Monos (auto) Absolute Eos (auto) Absolute Basos (auto) Absolute Nucleated RBC Nucleated RBC % Hem Pathologist Commnt INR (Anticoag Therapy) Patient Temperature Not Reportable ABG pH 7.38 ABG pH (Temp Correct) Not Reportable ABG pCO2 34 L ABG pCO2 (Temp Corrct Not Reportable ABG pO2 88 ABG pO2 (Temp Correct Not Reportable ABG HCO3 21.6 ABG O2 Saturation 98.6 H ABG Base Excess -4.2 L Respiration Rate 31 O2 Delivery Device vent Ventilator Type 350 Vent Mode apv/cmv FiO2 100 Inspiratory Time Not Reportable PEEP 8 Pressure Support Not Reportable Pressure Control Not Reportable EPAP Not Reportable IPAP Not Reportable BiPAP Not Reportable Sodium Potassium Chloride Carbon Dioxide Anion Gap BUN Creatinine Est GFR ( Amer) Est GFR (Non-Af Amer) BUN/Creatinine Ratio Glucose POC Glucose (mg/dL) Calcium Phosphorus Magnesium Total Bilirubin Direct Bilirubin Indirect Bilirubin AST ALT Alkaline Phosphatase Ammonia 60 H Total Creatine Kinase Total Protein Albumin Globulin Albumin/Globulin Ratio Random Vancomycin Heber Light Chain Lambda Light Chain Heber/Lambda Ratio Proteinase 3 (PR3) Myeloperoxidase Ab Glomerular Base Memb Ab TB (QFT) Gold In Tube TB Test (QFT) Nil TB Test Mitogen - Nil TB Test Antigen - Nil 02/14/19 02/14/19 02/14/19 06:00 07:50 09:30 WBC RBC Hgb Hct MCV MCH MCHC RDW Plt Count MPV Neut % (Auto) Lymph % (Auto) [place] % (Auto) Eos % (Auto) Baso % (Auto) Absolute Neuts (auto) Absolute Lymphs (auto) Absolute Monos (auto) Absolute Eos (auto) Absolute Basos (auto) Absolute Nucleated RBC Nucleated RBC % Hem Pathologist Commnt INR (Anticoag Therapy) 1.01 Patient Temperature ABG pH ABG pH (Temp Correct) ABG pCO2 ABG pCO2 (Temp Corrct ABG pO2 ABG pO2 (Temp Correct ABG HCO3 ABG O2 Saturation ABG Base Excess Respiration Rate O2 Delivery Device Ventilator Type Vent Mode FiO2 Inspiratory Time PEEP Pressure Support Pressure Control EPAP IPAP BiPAP Sodium Potassium Chloride Carbon Dioxide Anion Gap BUN Creatinine Est GFR ( Amer) Est GFR (Non-Af Amer) BUN/Creatinine Ratio Glucose POC Glucose (mg/dL) 211 H Calcium Phosphorus Magnesium Total Bilirubin Direct Bilirubin Indirect Bilirubin AST ALT Alkaline Phosphatase Ammonia Total Creatine Kinase Total Protein Albumin Globulin Albumin/Globulin Ratio Random Vancomycin 13.6 Heber Light Chain Lambda Light Chain Heber/Lambda Ratio Proteinase 3 (PR3) Myeloperoxidase Ab Glomerular Base Memb Ab TB (QFT) Gold In Tube TB Test (QFT) Nil TB Test Mitogen - Nil TB Test Antigen - Nil Studies: CT brain 02/07 - no focal findings CXR 02/07 - bilateral infiltrates consistent with possible pulm edema; next CXR with left PTX; next CXR with left cathetor, improved PTX, still mild bilateral infiltrates TTE 02/07 - lvef 40-50%, infero and mild pratibha hypokinesis cxr 02/09 - ett above mini, more consistent RML/RLL consolidation++ ct abd/pelvis 02/09 reviewed; no acute process noted ct chest 02/09 - bilateral consolidations+, CT+, subcut emph+; small apical ptx on left ct brain 02/09 - no cerebral edema noted cxr 02/10 - bilateral infiltrates+; stable/improved slightly on right; CT on left+ , no ptx noted CXR 02/11 - left CT+, no PTX Noted; right sided infiltrates+; not subcut emph bilaterally upper chest CXR 02/12 - bilateral infiltrates+; CT in palce, no change in PTX, none noted CXR 02/14: Lt sided PTX, unchanged even after chest tube displaced last night, subQ emphysema is slightly improved Nutrition: Tube feeds Impression: 54y F w diet controlled DM, Vitiligo, mild-mod AI; 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 CPR started at work. EMS arrived, found PEA rhythm, gave 20min of CPR. En route to ED, shockable rhythm noted and defibrillated. In ER, PEA arrest, CPR continued with ROSC in ~5min ?, total downtime estimated to be 30-40min, was intubated in field. EKG with inferior and anterolateral ST depressions. Cardiology consulted but deemed to likely have some degree of global ischemia from cardiac arrest. TTE showed anterior and inferior wall hypokinesis with mild LV systolic dysfunction. 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 She was started on Therapeutic hypothermia, IV heparin for possible ACS. -VT/VF/PEA Cardiac Arrest -Therapeutic Hypothermia 02/07 -Acute Hypoxic Respiratory Failure/ARDS -Pulmonary Edema -Shock, multifactorial/unspecified, resolved -Right ML/LL pneumonia > Left side, aspiration pneumonia with klebsiella and MRSA+ -Haemophilus influenza bacteremia -Influenza A infection+ -Iatrogenic Left PTX 02/07; s/p left Left PTX -Shock liver -VT/VF -Rhabdomyolysis -Upper GI bleed, suspected gastritis -acute blood loss anemia -thrombocytopenia -prolonged qTC -VT 2/2 torsades de pointes 2/2 to hypokalemia/hypomag and hypocalcemia -hypoglycemia -hypoxic-ischemic Encephalopathy -coagulopathy of liver disease/dysfunction -WILNER, anuric; now on HD 02/03o -V.fib arrest 02/13 Plan: Neuro- -off sedation ; has not awoken, ? gag reflex, coughs with suctioning -CT brain 02/09 with no sig cerebral edema noted -EEG 02/10 with slow brain activity; repeat EEG 02/12 similar findings -MRI brain 02/11 with bilateral cerebellar small infarcts, no hemorrhage/edema -PRN ativan for seizures; none further noted -cont keppra 500mg IV q12h for seizure proph -does not meet criteria for brain ; has pupillar/corneal/cough reflexes and spontaneous breathing over vent -likely severe anoxic injury; some small infarcts but likely not contributing to this encephalopathy -family would like to try HD trials in attempt to see if residual sedation/ toxins/uremia may be a factor; discussion about trial of HD 2-3 session would be done and re-eval neuro status after that -neuro f/u -maintain off sedation for now -asp prec CVS- -s/p cardiac arrest, Vfib/VT; repeat episode 46 AM and PM, 12 am -Electrolytes being monitored and corrected as needed -BP 120-130; cardene to goal of 120-150 -tele monitoring for further VT/Torsades -off pressors ; on cardene for BP control -TTE 02/09 - normal LV function now; no valvular abn -Qtc normalized as of 02/10 -maintain MAP>65, SBP>90 -hg - now; s/p prbc x1 02/11; no clear bleeding noted -off AC/ASA; may hae to reintroduce sq heparin if hg stable -LA elevated/not cleared completely Resp- -Intubated AC 18/350/+10/100% -ABG reviewed -CXR with stable PTX -Subcut emphysema slightly improved, left chest tube dislodged during code yesterday -no plan for weaning till neurologically improved -mild secretions;kleb and staph in sputum -IV abx and antivirals -VAP bundle -Bronchodilators PRN, asp prec ID- Low grade fever -Leucocytosis -Blood cx Haemophilus Influenza+ growth -Influenza A+ swab yesterday -Sputum culture klebsiella+ and MRSA+ -IV CTX (day#7);completed tamiflu; completed IV Vanco for MRSA+ in sputum GI- no output from NGT; mild bilious -nepro goal 40cc/hr -bowel movement with lactulose+; ammonia improving; repeat lactulose x1 today -cont PPI IV daily -hg stable; no clear bleeding noted -abd still tense; ct abd/pelvis 02/09; no acute process noted -shock liver+; mild coagulopathy+; LFTs stable -asp prec Renal- -WILNER; Cr elevated; ANURIC -overall fluid overload and edema++ -s/p HD 02/12; HD 02/14 _MOnitor electrolytes Heme- hg 11->8.5->4.1->8-9-7.8-7-8.8-8.7, stable around 8 -no bleeding source -s/p prbc x1 02/11 -thrombocytopenia; stable -off IV heparin/asa -DVT proph mech Endo- -BG <200 goal; cont lantus 8u q24h; sliding scale; on TF nepro Musculsk- pressure ulcer prophylaxis. Bedrest. Wounds- none Nutrition- TF nepro DVT prophylaxis: SCD GI prophylaxis: PPI Central Line: RIJ 02/07; Left Fem HD 02/12 Arterial Line: Right fem 02/08 Guzmán Cathetor: yes Disposition: Patient requires Critical Care/ICU for hypoxic/ischemic encephalopathy, cardiac arrest, acute hypoxic respiratory failure, WILNER -poor prognosis overall expected; currently likely has severe hypoxic/ischemic encephalopathy, not meeting criteria for brain testing Code Status: full code Total Critical Care time is 40 minutes
--- NOTE | 2019-02-14 22:39 | PN ---
NEUROLOGICAL FOLLOWUP NOTE: DATE OF VISIT: 02/14/19 PATIENT OF: Dr. Cruz. HISTORY: This 54-year-old woman status post cardiac arrest, status post cooling and propofol drip. She had another restless night and received chest compressions, shocks and epi x1 for a V-fib arrest and her heart was resuscitated. This was incurrence with the family's wishes. She remains in significant coma. Medicines continue to be vancomycin, Protonix , nicardipine, Keppra 500 twice a day, insulin, ceftriaxone, and albuterol p.r.n. PHYSICAL EXAMINATION: On exam, temperature 99.1, pulse 105, respirations 36, blood pressure 140/64. She remains comatose, not responsive to noxious stim. I was not able to get a corneal response in either eye today. Earlier, I got a minimal corneal response in her right eye. The pupils were 2 and not reactive. She remains breathing over the vent with a gag and a cough. Chest clear. She had diffuse rales. She is diffusely edematous. LABORATORY DATA: Labs include a CMP significant for a BUN of 23, creatinine of 6.05, glucose 107, calcium of 6.9, ALT 1038, AST 729, ammonia 60, CPK 4762. White count was 25, platelet count was 62,000. IMPRESSION AND PLAN: We discussed with the family that Alma Horta has severe hypoxic ischemic insult to her brain with the likelihood as of yesterday that she was not going to have a meaningful neurological recovery to having a significant function and that she might wind up in permanent coma or vegetative state. It appeared like she was not going to suffer brain . With this new cardiopulmonary insult on top of what she has had already that it is possible that her trajectory will change. The family had wanted to continue supporting her until early next week to see if there is improvement metabolically and hopefully she will improve. It is unclear whether she will be able to be supported until that time, but that is the plan and I will be signing her case off to Dr. Roman as the neurologist who is coming on service. Thank you for sharing her case. [id number]/[facility] #: [id number] MARCIE
--- NOTE | 2019-02-14 23:55 | PN ---
DIALYSIS NOTE: DATE OF Dialysis: 02/14/19 The patient seen and examined at bedside. The patient is getting her second session of dialysis today. Dialysis orders discussed with HD nurse. The patient's mental status has not turned around yet. The patient noted to be grossly volume overloaded and has been off all sedation and with no meaningful return of mental status. Discussed with the family that if her mentation does not improve after her third session of dialysis, it would be futile to pursue dialysis or further management. Can also watch the patient closely through the weekend as the patient noted to be in critical state. The patient had a V-fib arrest with 3 rounds of chest compression and epi and biphasic 150 joules shock. After approximately 6 minutes, the patient had ROSC. Overall, the patient's prognosis appears extremely poor and we will continue ongoing discussion with the family. [id number]/[facility] #: [id number] MARCIE
[2019-02-15] MEDS: niCARdipine 0.1MG/ML IVPREMIX* 20 MG/200 ML BAG IV SCH (00:14)
[2019-02-15] MEDS: Insulin LISPRO* 1 UNITS UNIT SUBCUT SCH ×4 (00:49→12:23)
[2019-02-15] MEDS: Chlorhexidine MOUTHWASH 0.12%* 15 ML UDC TOPICAL SCH ×4 (00:49→12:38)
[2019-02-15] MEDS: levETIRAcetam 500 MG IVPREMIX* 500 MG/100 ML BAG IV SCH (03:56)
[2019-02-15] MEDS: Artificial Tear OPHTH.OINT* 3.5 GM BOTH EYES SCH ×2 (03:56→10:35)
[2019-02-15 05:51] LABS: INR 0.95 (0.77-1.02)
[2019-02-15 05:57] LABS: Hematocrit 21 % (33-41); Hemoglobin 6.8 g/dL (12.0-16.0); Mean Corpuscular HGB Conc 33 g/dL (31-36); Mean Corpuscular Hemoglobin 28 pg (27-31); Mean Corpuscular Volume 84 fL (80-97); Mean Platelet Volume 10.9 fL (7.4-10.4); Platelet Count 48 10^3/uL (150-450); Red Blood Count 2.46 10^6 /uL (3.70-4.87); Red Cell Distribution Width 22 % (10.5-15); White Blood Count 18.1 10^3/uL (3.5-10.8)
[2019-02-15 06:02] LABS: Albumin 2.2 g/dL (3.2-5.2); Albumin/Globulin Ratio 0.9 (1-3); BUN/Creatinine Ratio 20.1 (8-20); Calcium 6.5 mg/dL (8.6-10.3); EGFR African American 10.7 (>60); EGFR Non-African American 8.9 (>60); Globulin 2.5 g/dL (2-4); Indirect Bilirubin 0.4 mg/dL (0.3-1.0); Magnesium 2.3 mg/dL (1.9-2.7); Potassium 4.7 mmol/L (3.5-5.0); Total Bilirubin 0.8 mg/dL (0.2-1.0); Total Protein 4.7 g/dL (6.4-8.9)
[2019-02-15] MEDS: Metoprolol Tartrate TAB* 25 MG PO SCH (09:36)
[2019-02-15] MEDS: Pantoprazole IV* 40 MG IV SCH (09:37)
--- NOTE | 2019-02-15 12:32 | PN ---
Progress Note - Progress Note Date of Service: 02/15/19 - [facility] note Note: Pt seen and examined at bedside O/n events noted. Pt with further deterioration. CT brain showed subarachnoid hemorrhage, cerebral edema. She is hypothermic requiring external rewarming. Had episode of hypotension. Tolerated HD Active Medications Generic Name Dose Route Start Last Admin Trade Name Freq PRN Reason Stop Dose Admin Acetaminophen 650 mg 02/08/19 04:08 Tylenol Supp* OH Q6H PRN FEVER Albuterol 2.5 mg 02/08/19 01:17 Ventolin 2.5 Mg/3 Ml Neb.Natalie* INH [id number] AWAKE PRN sob/wheezing Artificial Tears 1 applic 02/13/19 22:00 02/15/19 03:56 Lacrilube Oint* BOTH EYES 1 applic Q6H CÉSAR Administration Carboxymethylcellulose/Glycerin 1 applic 02/08/19 18:14 02/14/19 06:19 Refresh Optive Gel Eye Gel BOTH EYES 1 applic Q4H PRN Administration DRY EYE Chlorhexidine Gluconate 15 ml 02/08/19 11:00 02/15/19 09:36 Peridex Mouth Wash 0.12%* TOPICAL 15 ml Q4H CÉSAR Administration Dextrose 12.5 gm 02/08/19 01:14 02/09/19 13:35 D50w Syringe 50 Ml* IV PUSH 12.5 gm .FOR FS < 60 - SS PRN Administration FS < 60 Fentanyl Citrate 25 mcg 02/10/19 02:50 02/13/19 02:45 Fentanyl* IV 25 mcg Q1H PRN Administration .RESPIRATORY DISTRESS Propofol 100 mls @ 1.497 mls/hr 02/07/19 23:45 02/09/19 12:26 Diprivan* IV 12 mls/hr .(Initial Rate) CÉSAR Administration Protocol 5 MCG/KG/MIN Norepinephrine Bitartrate 4,000 mcg in 250 mls @ 30 mls/hr 02/08/19 05:00 05/23 16:55 Levophed 16 Mcg/Ml Premix Bag* IV 26.3 mls/hr .INITIAL RATE CÉSAR Administration 8 MCG/MIN Levetiracetam 500 mg in 100 mls @ 400 mls/hr 02/10/19 03:00 02/15/19 03:56 Keppra Iv Premix* IV 400 mls/hr Q12H CÉSAR Administration Nicardipine/Sodium Chloride 20 mg in 200 mls @ 20 mls/hr 02/10/19 12:00 02/15 00:14 Cardene 0.1mg/Ml Ivpremix* IV Not Given Q10H [facility] Protocol 2 MG/HR Ceftriaxone Sodium 1 gm/ 50 mls @ 200 mls/hr 02/11/19 15:00 02/14/19 15:32 Sodium Chloride IVPB 200 mls/hr Q24H CÉSAR Administration Insulin Glargine 8 units 02/12/19 13:00 02/14/19 15:31 Lantus(*) SUBCUT 8 unit Q24H CÉSAR Administration Insulin Human Lispro 0 units 02/12/19 08:00 02/15/19 12:23 Humalog* SUBCUT Not Given FS Q4 ICU [facility] Protocol Metoprolol Tartrate 2.5 mg 02/10/19 15:06 02/11/19 01:00 Lopressor Iv* IV 2.5 mg Q4H PRN Administration for HR >120 Metoprolol Tartrate 25 mg 02/14/19 09:00 02/15/19 09:36 Lopressor Tab* PO 25 mg Q12HR CÉSAR Administration Pantoprazole Sodium 40 mg 02/12/19 09:00 02/15/19 09:37 Protonix Iv* IV 40 mg DAILY CÉSAR Administration Pharmacy Consult 1 note 02/12/19 10:00 Vancomycin Per Pharmacy* FOLLOW UP .VANC PER PHARMACY [facility] Pharmacy Consult 1 note 02/14/19 06:00 02/14/19 06:19 Vancomycin Random Level* FOLLOW UP 1 note [id number] CÉSAR Administration Vital Signs Temp Pulse Resp BP Pulse Ox 98.2 F 78 18 91/50 98 02/15/19 06:15 02/15/19 06:15 02/15/19 06:00 02/14/19 12:45 02/15/19 06:15 O/E: Pt in NAD, anasarca+ HEENT: No pupil response, ETT+ Resp: Diminished at bases CVS: S1, S2+ Abd: Firm, BS absent Ext: Anasarca, blistering of skin in UE Neuro: No corneal, gag reflex, no response to painful stimuli Laboratory Results - last 24 hr 02/12/19 02/12/19 02/12/19 18:22 20:12 20:12 WBC RBC Hgb Hct MCV MCH MCHC RDW Plt Count MPV Hem Pathologist Commnt INR (Anticoag Therapy) ABG pH ABG pCO2 ABG pO2 ABG HCO3 ABG O2 Saturation ABG Base Excess Sodium Potassium Chloride Carbon Dioxide Anion Gap BUN Creatinine Est GFR ( Amer) Est GFR (Non-Af Amer) BUN/Creatinine Ratio Glucose POC Glucose (mg/dL) Calcium Phosphorus Magnesium Total Bilirubin Direct Bilirubin Indirect Bilirubin AST ALT Alkaline Phosphatase Total Creatine Kinase Total Protein Albumin Globulin Albumin/Globulin Ratio Sultana Light Chain 8.32 H Lambda Light Chain 5.32 H Sultana/Lambda Ratio 1.56 Anti-Nuclear Antibody 2.1 H Proteinase 3 (PR3) 0.2 Myeloperoxidase Ab < 0.2 Glomerular Base Memb Ab <0.2 TB (QFT) Gold In Tube TNP TB Test (QFT) Nil TNP TB Test Mitogen - Nil TNP TB Test Antigen - Nil TNP 02/14/19 02/14/19 02/14/19 00:00 12:23 16:38 WBC RBC Hgb Hct MCV MCH MCHC RDW Plt Count MPV Hem Pathologist Commnt INR (Anticoag Therapy) ABG pH ABG pCO2 ABG pO2 ABG HCO3 ABG O2 Saturation ABG Base Excess Sodium Potassium Chloride Carbon Dioxide Anion Gap BUN Creatinine Est GFR ( Amer) Est GFR (Non-Af Amer) BUN/Creatinine Ratio Glucose POC Glucose (mg/dL) 142 H 190 H Calcium Phosphorus Magnesium Total Bilirubin Direct Bilirubin Indirect Bilirubin AST ALT Alkaline Phosphatase Total Creatine Kinase Total Protein Albumin Globulin Albumin/Globulin Ratio Sultana Light Chain Lambda Light Chain Sultana/Lambda Ratio Anti-Nuclear Antibody Proteinase 3 (PR3) Myeloperoxidase Ab Glomerular Base Memb Ab TB (QFT) Gold In Tube TB Test (QFT) Nil TB Test Mitogen - Nil TB Test Antigen - Nil 02/14/19 02/15/19 02/15/19 20:55 00:45 03:46 WBC RBC Hgb Hct MCV MCH MCHC RDW Plt Count MPV Hem Pathologist Commnt INR (Anticoag Therapy) ABG pH ABG pCO2 ABG pO2 ABG HCO3 ABG O2 Saturation ABG Base Excess Sodium Potassium Chloride Carbon Dioxide Anion Gap BUN Creatinine Est GFR ( Amer) Est GFR (Non-Af Amer) BUN/Creatinine Ratio Glucose POC Glucose (mg/dL) 192 H 188 H 198 H Calcium Phosphorus Magnesium Total Bilirubin Direct Bilirubin Indirect Bilirubin AST ALT Alkaline Phosphatase Total Creatine Kinase Total Protein Albumin Globulin Albumin/Globulin Ratio Sultana Light Chain Lambda Light Chain Sultana/Lambda Ratio Anti-Nuclear Antibody Proteinase 3 (PR3) Myeloperoxidase Ab Glomerular Base Memb Ab TB (QFT) Gold In Tube TB Test (QFT) Nil TB Test Mitogen - Nil TB Test Antigen - Nil 02/15/19 02/15/19 02/15/19 05:37 05:37 05:37 WBC 18.1 H RBC 2.46 L Hgb 6.8 L Hct 21 L MCV 84 MCH 28 MCHC 33 RDW 22 H Plt Count 48 L MPV 10.9 H Hem Pathologist Commnt INR (Anticoag Therapy) ABG pH 7.24 L ABG pCO2 50 H ABG pO2 176 H ABG HCO3 20.0 ABG O2 Saturation 99.6 H ABG Base Excess -6.3 L Sodium 140 Potassium 4.7 Chloride 107 Carbon Dioxide 22 Anion Gap 11 BUN 102 H Creatinine 5.07 H Est GFR ( Amer) 10.7 Est GFR (Non-Af Amer) 8.9 BUN/Creatinine Ratio 20.1 H Glucose 174 H POC Glucose (mg/dL) Calcium 6.5 L Phosphorus 8.0 H Magnesium 2.3 Total Bilirubin 0.80 Direct Bilirubin 0.40 H Indirect Bilirubin 0.4 AST 332 H ALT 685 H Alkaline Phosphatase 299 H Total Creatine Kinase 1962 H Total Protein 4.7 L Albumin 2.2 L Globulin 2.5 Albumin/Globulin Ratio 0.9 L Sultana Light Chain Lambda Light Chain Sultana/Lambda Ratio Anti-Nuclear Antibody Proteinase 3 (PR3) Myeloperoxidase Ab Glomerular Base Memb Ab TB (QFT) Gold In Tube TB Test (QFT) Nil TB Test Mitogen - Nil TB Test Antigen - Nil 02/15/19 05:37 WBC RBC Hgb Hct MCV MCH MCHC RDW Plt Count MPV Hem Pathologist Commnt INR (Anticoag Therapy) 0.95 ABG pH ABG pCO2 ABG pO2 ABG HCO3 ABG O2 Saturation ABG Base Excess Sodium Potassium Chloride Carbon Dioxide Anion Gap BUN Creatinine Est GFR ( Amer) Est GFR (Non-Af Amer) BUN/Creatinine Ratio Glucose POC Glucose (mg/dL) Calcium Phosphorus Magnesium Total Bilirubin Direct Bilirubin Indirect Bilirubin AST ALT Alkaline Phosphatase Total Creatine Kinase Total Protein Albumin Globulin Albumin/Globulin Ratio Sultana Light Chain Lambda Light Chain Sultana/Lambda Ratio Anti-Nuclear Antibody Proteinase 3 (PR3) Myeloperoxidase Ab Glomerular Base Memb Ab TB (QFT) Gold In Tube TB Test (QFT) Nil TB Test Mitogen - Nil TB Test Antigen - Nil 54y F w diet controlled DM, Vitiligo, mild-mod AI; 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 CPR started at work. EMS arrived, found PEA rhythm, gave 20min of CPR. En route to ED, shockable rhythm noted and defibrillated. In ER, PEA arrest, CPR continued with ROSC in ~5min ?, total downtime estimated to be 30-40min, was intubated in field. EKG with inferior and anterolateral ST depressions. Cardiology consulted but deemed to likely have some degree of global ischemia from cardiac arrest. TTE showed anterior and inferior wall hypokinesis with mild LV systolic dysfunction. She was not taken to catholic priest. She was started on Therapeutic hypothermia, IV heparin for possible ACS. -VT/VF/PEA Cardiac Arrest -Therapeutic Hypothermia 02/07 -Acute Hypoxic Respiratory Failure/ARDS -Pulmonary Edema -Shock, multifactorial/unspecified, resolved -Right ML/LL pneumonia > Left side, aspiration pneumonia with klebsiella and MRSA+ -Haemophilus influenza bacteremia -Influenza A infection+ -Iatrogenic Left PTX 02/07; s/p left Left PTX -Shock liver -VT/VF -Rhabdomyolysis -Upper GI bleed, suspected gastritis -acute blood loss anemia -thrombocytopenia -prolonged qTC -VT 2/2 torsades de pointes 2/2 to hypokalemia/hypomag and hypocalcemia -hypoglycemia -hypoxic-ischemic Encephalopathy -coagulopathy of liver disease/dysfunction -WILNER, anuric; now on HD 02/03o -V.fib arrest 02/13 - [facility] -Cerebral edema sec to ischemia Plan: Discussed prognosis in lenghth with pts family at bedside. Reviewed CT brain results. No plan from nephro for continuing dialysis Neurological status worse Pts HCP daughter signed [facility] forms indicating comfort care and DNR measures Awaiting for family to arrive from [place] Will start morphine drip and withdraw care as per family`s request
[2019-02-15] MEDS ORDERED: Morphine 4 MG/ML VIAL (1 ml) 4 MG/ML VIAL IV PRN (15:14)
[2019-02-15] MEDS ORDERED: Morphine 10 MG/ML VIAL (1 ml) IV ONE (15:32)
[2019-02-15] MEDS ORDERED: Morphine 10 MG/ML VIAL (1 ml) ONE (15:37)
[2019-02-15] MEDS ORDERED: Morphine PCA ADULT* 5 MG/ML 30 ML PCA SCH (16:00)
--- NOTE | 2019-02-15 17:46 | DS ---
DISCHARGE SUMMARY/EXPIRATION SUMMARY: DATE OF ADMISSION: 02/07/19 DATE OF EXPIRATION: 02/15/19 TIME OF EXPIRATION: 04:01 p.m. REASON FOR ADMISSION TO THE HOSPITAL: Cardiac arrest at work. REASON FOR : Cardiac arrest and brain , terminal extubation. BRIEF SUMMARY OF HOSPITALIZATION: The patient is a 54-year-old female with diet - controlled diabetes, vitiligo, [id number] aortic insufficiency. The patient had a witnessed collapse at work at 2130 on 02/07/19. CPR was started immediately. EMS arrived, found PEA rhythm, gave 20 minutes of CPR. En route to ED, the patient noted to have shockable rhythm and was defibrillated. In the ER, the patient continued to be PEA arrest. CPR continued with return of spontaneous circulation in approximately 5 minutes. The patient with total downtime estimated to be 30 to 40 minutes. She was intubated in the field. EKG in the ED was suggestive of inferior and anterolateral ST depressions. Cardiology was consulted; however, she was not deemed to be a candidate for PCI. She was found to have global ischemia secondary to cardiac arrest. Echocardiogram showed anterior and inferior wall hypokinesis with mild left ventricular systolic dysfunction. She was started on therapeutic hypothermia. She was also initiated on IV heparin per possible ACS. The patient remained intubated since that time for VT, V-fib, PEA arrest. She continued to have significant hypoxemic respiratory failure with the RDS picture. She also was in pulmonary edema and shock, probably multifactorial. She also was being treated for possible aspiration pneumonia. Cultures were positive for Klebsiella and MRSA. She also was noted to be having Haemophilus influenzae bacteremia. She was also positive for influenza A. The patient had iatrogenic pneumothorax on the left side noticed on 02/07/19. She had chest tube placement. The patient had shock liver, renal failure, requiring dialysis. She was also noted to have rhabdomyolysis. She had possible upper GI bleed secondary to suspected gastritis with acute blood loss anemia. She was also noted to have thrombocytopenia. The patient also with prolonged QT on admission. She continued to deteriorate. She had an episode of V-fib and V-tach. She had V- fib arrest on 02/13/19, required CPR and defibrillation. Her brain functioning continued to deteriorate, suspected secondary to hypoxemic, ischemic encephalopathy. She had repeat CT brain done yesterday, which was suggestive of subarachnoid hemorrhage with diffuse cerebral edema. EEG showed slowing of brain activity. 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 She was started on Keppra for seizure prophylaxis. She did not have any cough reflex or spontaneous breathing over the vent this morning. Her condition continued to deteriorate. She was becoming anasarcic, hypothermic. Detailed discussion with family regarding poor prognosis. The patient's daughter who is healthcare proxy decided on comfort care measures and requested terminal extubation. The patient was terminally extubated around 03:45 p.m. on 02/15/19. The patient was given morphine prior to terminal extubation. The patient with family at bedside around 04:01 p.m. on 02/15/19. TIME SPENT: Total time spent on discharge about 25 minutes. [id number]/[facility] #: [id number] MARCIE
[2019-02-18 17:11] LABS: Albumin 2.7 g/dL (3.4-4.7); Albumin/Globulin Ratio 0.87; Gamma Globulin 1.2 g/dL (0.6-1.6); Total Protein(PEP) 5.7 g/dL (6.3 - 7.9)
== END 2019-02-15 16:01 | disposition expired | DRG 207 ==
LOC: ED 22:03 → ICU 02-08 01:17 → UNDODISIN 02-15 16:01
PROVIDERS: ADMIT Internal Medicine; ATTEND Internal Medicine Critical Care Medicine
PROC: 5A12012 Performance of Cardiac Output, Single, Manual (ICD-10-PCS; principal; 2019-02-08)
PROC: 5A1955Z Respiratory Ventilation, Greater than 96 Consecutive Hours (ICD-10-PCS; 2019-02-08)
PROC: 3E033XZ Introduction of Vasopressor into Peripheral Vein, Percutaneous Approach (ICD-10-PCS; 2019-02-08)
PROC: 0BH17EZ Insertion of Endotracheal Airway into Trachea, Via Natural or Artificial Opening (ICD-10-PCS; 2019-02-08)
PROC: 30233N1 Transfusion of Nonautologous Red Blood Cells into Peripheral Vein, Percutaneous Approach (ICD-10-PCS; 2019-02-11)
PROC: 4A10X4Z Monitoring of Central Nervous Electrical Activity, External Approach (ICD-10-PCS; 2019-02-12)
DX: J96.01 Acute respiratory failure with hypoxia (principal); K66.1 Hemoperitoneum; J69.0 Pneumonitis due to inhalation of food and vomit; K29.01 Acute gastritis with bleeding; I60.9 Nontraumatic subarachnoid hemorrhage, unspecified; G93.6 Cerebral edema; K72.00 Acute and subacute hepatic failure without coma; E87.2 Acidosis; J93.9 Pneumothorax, unspecified; R57.9 Shock, unspecified; I47.2 Ventricular tachycardia; D62 Acute posthemorrhagic anemia; G93.49 Other encephalopathy; M62.82 Rhabdomyolysis; N17.9 Acute kidney failure, unspecified; E72.4 Disorders of ornithine metabolism; I46.9 Cardiac arrest, cause unspecified; I49.01 Ventricular fibrillation; I35.1 Nonrheumatic aortic (valve) insufficiency; E11.65 Type 2 diabetes mellitus with hyperglycemia; D50.9 Iron deficiency anemia, unspecified; I95.9 Hypotension, unspecified; E11.649 Type 2 diabetes mellitus with hypoglycemia without coma; E87.5 Hyperkalemia; K72.90 Hepatic failure, unspecified without coma; D69.6 Thrombocytopenia, unspecified
CPT/HCPCS: 36415; 36600; 70450; 70551; 71045; 71250; 71275; 74174; 74176; 80048; 80053; 80076; 80202; 80307; 80329; 81003; 81015; 82140; 82271; 82436; 82533; 82550; 82553; 82570; 82803; 82947; 83516; 83520; 83605; 83735; 83874; 83880; 83883; 84100; 84155; 84165; 84300; 84443; 84484; 84540; 85014; 85018; 85025; 85027; 85060; 85384; 85610; 85730; 86038; 86078; 86480; 86706; 86803; 86850; 86900; 86901; 86922; 86927; 87040; 87070; 87077; 87086; 87185; 87186; 87205; 87340; 87641; 90935; 93005; 93306; 94003; 95822; 99285; A9270-GY; G0257; G0480; G9019; J0171; J0282; J0610; J0696; J1644; J1940; J1953; J2060; J2250; J2270; J2543; J2704; J3010; J3370; J3430; J3475; J3480; J3490; J7060; P9017; P9040; Q9967